=== PATIENT | female | born 1940 | race Caucasian/White ===

== ENCOUNTER 2022-11-12 09:16 | Outpatient (CLI) | payer MEDICARE, BC, SELFPAY ==
--- NOTE | 2022-11-12 10:00 | CRLHL7_ITS ---
For Patients: As a result of the Century Cures Act, medical imaging exams and procedure reports are released immediately into your electronic medical record. You may view this report before your referring provider. If you have questions, please contact your health care provider. INDICATION: Altered bowel habits. Prior appendectomy, hysterectomy, laparotomy, and lumbar fusion. TECHNIQUE: Contrast-enhanced abdominal pelvic CT. 54 cc nonionic [id number] administered. COMPARISON: July 29, 2018. FINDINGS: Minor fibrosis or atelectasis posteromedial right lung base. No pleural or pericardial effusions. No nodules at either lung base. 9 mm cyst sub capsular right hepatic lobe previously 7 mm. Tiny cyst lateral left hepatic lobe of no clinical significance. No splenomegaly. Normal-appearing pancreas and gallbladder. Both adrenal glands are within normal limits. No hydronephrosis of either kidney. No cystic or solid renal masses. Scattered vascular calcification within a mildly tortuous but normal caliber abdominal aorta and iliac arteries. The urinary bladder is unremarkable. The appendix and uterus are absent. Nonvisualization of the ovaries. There is no evidence for small or large bowel obstruction ileus and no ascites or lymphadenopathy. No acute inflammatory process. Lumbar scoliotic curvature convex towards the right. Multilevel degenerative disc disease with 3 level posterior cervical spine fusion L3-L5. No acute fractures. IMPRESSION: 1. No acute abdominopelvic process identified. Specifically there is no evidence for acute inflammatory processes. 2. Absent appendix and uterus. Postsurgical change of the lumbar spine new compared to the prior study. Please note that all CT scans at this facility use dose modulation, iterative reconstruction, and/or weight-based dosing when appropriate to reduce radiation dose to as low as reasonably achievable. Dictated by Newton Rosa MD @ 11/12/2022 4:25:45 PM (Electronically Signed)
[2022-11-12 10:24] LABS: Creatinine* 0.5 mg/dL (0.5-1.5); Estimated Glomerular Filt Rate 94 ml/min
== END 2022-11-12 09:17 | disposition home or self-care (01) ==
LOC: CT 09:18
PROVIDERS: PCP Internal Medicine; Visit Provider Internal Medicine
DX: R19.4 Change in bowel habit (principal)
CPT/HCPCS: 36415; 74177; 82565; Q9967

== ENCOUNTER 2022-11-20 11:06 | Outpatient (CLI) | payer MEDICARE, BC, SELFPAY | END 2022-11-20 11:07 | disposition home or self-care (01) | LOC: NFLDREF 11:06 | PROVIDERS: PCP Internal Medicine; Visit Provider Obstetrics & Gynecology | DX: R33.9 Retention of urine, unspecified (principal) | CPT/HCPCS: 87086 ==

== ENCOUNTER 2023-07-20 13:57 | Outpatient (CLI) | payer MEDICARE, BC, SELFPAY | END 2023-07-20 13:58 | disposition home or self-care (01) | LOC: INJ CL 13:59 | PROVIDERS: PCP Internal Medicine; Visit Provider Family Medicine | DX: M17.11 Unilateral primary osteoarthritis, right knee (principal); M25.561 Pain in right knee | CPT/HCPCS: 64454 ==

== ENCOUNTER 2023-08-10 13:11 | Outpatient (CLI) | payer MEDICARE, BC, SELFPAY | END 2023-08-10 13:12 | disposition home or self-care (01) | LOC: INJ CL 13:12 | PROVIDERS: PCP Internal Medicine; Visit Provider Family Medicine | DX: M17.11 Unilateral primary osteoarthritis, right knee (principal); G89.29 Other chronic pain; M25.561 Pain in right knee | CPT/HCPCS: 64624; J2250; J3010 ==

== ENCOUNTER 2023-09-14 14:49 | Outpatient (CLI) | payer MEDICARE, BC, SELFPAY | END 2023-09-14 14:50 | disposition home or self-care (01) | LOC: INJ CL 14:49 | PROVIDERS: PCP Internal Medicine; Visit Provider Family Medicine | DX: M17.12 Unilateral primary osteoarthritis, left knee (principal); M25.562 Pain in left knee | CPT/HCPCS: 64454 ==

== ENCOUNTER 2023-10-19 12:26 | Outpatient (CLI) | payer MEDICARE, BC, SELFPAY | END 2023-10-19 12:27 | disposition home or self-care (01) | PROVIDERS: PCP Internal Medicine; Visit Provider Family Medicine | DX: M17.12 Unilateral primary osteoarthritis, left knee (principal); M25.562 Pain in left knee; G89.29 Other chronic pain | CPT/HCPCS: 64624; J2250; J3010 ==

== ENCOUNTER 2023-10-25 11:38 | Emergency (ER) | payer MEDICARE, BC, SELFPAY ==
[2023-10-25] VITALS (15 sets, daily range): BP systolic 145–173; BP diastolic 91–119; PULSE 72–103; RESP 16; TEMP 36.9; O2SAT 97–99; BMI 19.6
--- NOTE | 2023-10-25 12:05 | ED.GENADULT ---
HPI - General Adult General Chief complaint: Chest Pain Stated complaint: Lightheaded, dizzy, chest pain Time Seen by Provider: 10/25/23 11:48 History of Present Illness HPI narrative: Dizzy, SOB, chest pain with activity x 8- 10 days. Symptoms worsening. Hx of chest muscle pain, but states this feels different . States this feels more like a pressure. 83-year-old woman presenting to emergency department concern of chest pain. Apparently she has had decades of what is thought to have been chest wall/musculoskeletal pain. What brought her here today though was what appears to be lightheadedness markedly worse this morning after had been out feeding the birds. Feeling like she was going to fall over. Accompanied also with some chest pressure. Further questioning it is not clear that this is exactly dizziness but perhaps indeed more lightheadedness. She has had increased exertional dyspnea over the last week. She can feel like her heart is pounding but not necessarily racing. Has felt like this before perhaps 4 years ago with unremarkable evaluation. She believes she may have had a stress test at some point and looks to be scheduled for that in a week or so again. Saw primary care provider last week. 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 At rest she feels fairly well. Not short of breath. No chest pain. Daughter accompanies her here notes her not to be complainer nor that she really slowed down so this is rather unusual. At some point someone has suggested that maybe there is a blood clot. Has had some pain in her right upper calf and up into her thigh a little bit which she has associated with osteoarthritic knee pain. Interview is a little challenging as Ms. Hughes says very little in response to questioning. Related Data Home Medications Medication Instructions Recorded Confirmed acetaminophen 325 mg capsule 325 mg PO ONCE PRN 09/29/22 10/26/23 calcium carbonate 500 mg calcium 500 mg PO DAILY 09/29/22 10/26/23 (1,250 mg) tablet cyanocobalamin (vitamin B-12) 500 500 mcg PO DAILY 09/29/22 10/26/23 mcg tablet fish oil-dha-epa PO DAILY 09/29/22 10/26/23 garlic PO DAILY PRN 09/29/22 10/26/23 glucosamine sulfate 500 mg capsule 500 mg PO QDAY 09/29/22 10/26/23 rutin 50 mg tablet 100 mg PO DAILY 09/29/22 10/26/23 vitamin B complex 1 tab PO QDAY 09/29/22 10/26/23 zyflamed PO DAILY 10/21/23 10/26/23 Previous Rx's Medication Instructions Recorded estradiol 0.01% (0.1 mg/gram) 0.5 appful vaginal 2XW #42.5 grams 05/04/23 vaginal cream Allergies Allergy/AdvReac Type Severity Reaction Status Date / Time codeine Allergy Unknown Gastrointestinal Verified 10/26/23 13:00 Upset Review of Systems Status of ROS: Reports: 6 or more systems reviewed and unremarkable except as noted in History and below [facility] Medical History History of bladder cancer ?Z85.51 - Personal history of malignant neoplasm of bladder (ICD-10) Surgical History H/O foot surgery (10/23/08) ?Z98.890 - Other specified postprocedural states (ICD-10) H/O cystoscopy (12/10/14) ?Z98.890 - Other specified postprocedural states (ICD-10) History of cataract surgery ?Z98.49 - Cataract extraction status, unspecified eye (ICD-10) History of total hysterectomy with removal of both tubes and ovaries (1995) ?Z90.710 - Acquired absence of both cervix and uterus (ICD-10) ?Z90.722 - Acquired absence of ovaries, bilateral (ICD-10) ?Z90.79 - Acquired absence of other genital organ(s) (ICD-10) History of laparotomy (1999) ?Z98.890 - Other specified postprocedural states (ICD-10) History of appendectomy (1997) ?Z90.49 - Acquired absence of other specified parts of digestive tract (ICD-10) Family History Brother Colon cancer Social History What is your current living situation?: I presently have a place to live Problems where you live: no known problems In the past 12 months, utilities in danger of being shut off: no In past 12 months, lack of transportation kept you from medical appts, meetings, work, or getting things needed for daily living: no In the past 12 mos, have been you worried that your food would run out before you had money to buy more?: never true In the past 12 mos, the food you bought just didn't last and you didn't have money to buy more?: never true Smoking Status: Never smoker Do you use any of these nicotine containing products: None Second hand tobacco smoke exposure: No How often do you have a drink containing alcohol: monthly or less How many standard drinks containing alcohol do you have on a typical day: 1 or 2 How often do you have six or more drinks on one occasion: Never AUDIT-C Alcohol total score: 1 Non-prescribed substance use: denies use How often does anyone, including family, friends and others, physically hurt you: never How often does anyone, including family, friends and others, insult or talk down to you: never How often does anyone, including family, friends and others, threaten you with harm: never How often does anyone, including family, friends and others, scream or curse at you: never Little interest or pleasure in doing things: not at all Feeling down, depressed, or hopeless: several days service: No Exam Narrative: Exam Narrative: Very pleasant. Fully alert. Cranial nerves 2-12 intact. Moving all extremities without difficulty with good strength. She has fluid in her movements. No nystagmus. She volunteers rotational movement and extending and flexing of her neck without significant reproduction her discomfort. Rapidly rotating her head producing maybe a little wooziness; clearly not overly dizzy otherwise. Lower extremities are well perfused. She is without edema. Not particularly reproducible discomfort; negative Homans. Lungs are clear. Mild kyphotic change of the upper thoracic spine. Heart in regular rate and rhythm I think sometimes I am hearing a very trace systolic murmur across the anterior chest but very trace if present. Abdomen is flat soft and nontender. Const: Vital Signs, click to edit/add: Vital Signs - 24 hr 10/25/23 11:46 Temperature 98.4 F Pulse Rate [Pulse Oximeter] 72 Respiratory Rate 16 Blood Pressure [Ri ght Upper Arm] 173/103 H Pulse Oximetry 99 Oxygen Delivery Me thod Room Air Documenting provider has reviewed patient's vital signs: yes Course Vital Signs Vital signs: Initial Vital Signs Temperature 98.4 F 10/25/23 11:46 Temperature Source Temporal Artery Scan 10/25/23 11:46 Pulse Rate 72 10/25/23 11:46 Pulse Rhythm Regular 10/25/23 11:46 Pulse Strength 3+ Normal 10/25/23 11:46 Respiratory Rate 16 10/25/23 11:46 Blood Pressure 173/103 H 10/25/23 11:46 Blood Pressure Mean 126 H 10/25/23 11:46 Blood Pressure Position Semi-Fowlers 10/25/23 11:46 Pulse Oximetry 99 10/25/23 11:46 Oxygen Delivery Method Room Air 10/25/23 11:46 Vital Signs Temperature 98.4 F 10/25/23 11:46 Pulse Rate 72 10/25/23 11:46 Respiratory Rate 16 10/25/23 11:46 Blood Pressure 173/103 H 10/25/23 11:46 Pulse Oximetry 99 10/25/23 11:46 Oxygen Delivery Method Room Air 10/25/23 11:46 Temperature 98.4 F 10/25/23 11:46 Pulse Rate 85 10/25/23 14:33 Respiratory Rate 16 10/25/23 11:46 Blood Pressure 150/102 H 10/25/23 14:33 Pulse Oximetry 99 10/25/23 14:33 Oxygen Delivery Method Room Air 10/25/23 11:46 Medications Administered Medications: Discontinued Medications Generic Name Dose Route Start Last Admin Trade Name Freq PRN Reason Stop Dose Admin Sodium Chloride 1,000 mls @ 1,000 mls/hr 10/25/23 14:11 10/25/23 14:35 0.9 % Sodium Chloride 1000 Ml IV 10/25/23 15:10 0 mls/hr .Q1H ONE Infusion Medical Decision Making MDM Narrative Medical decision making narrative: Exertional dyspnea certainly it could be related to heart failure exacerbation. Lungs do sound to be clear. I do not appreciate any JVD here today. No extremity edema. Pulmonary embolus certainly does remain in differential. Does not appear to have infectious etiology i.e. pneumonia. Pneumothorax could be related. Pericarditis. Will check orthostatics. Labs for potential ischemic event. Monitor on monitor tech for dysrhythmia. Chest x-ray by my read looks unremarkable without pneumothorax or infiltrate or edema. Monitored on monitor tech without event during time in the emergency department. Labs are reassuring. D-dimer was only slightly elevated. Did discuss these findings with Ms. Hughes. She discusses again her concerns of fatigue; what I interpret as exertional fatigue. We decided to proceed with CT of chest looking for other etiologies, possibly even pulmonary embolus. I did review these images and can appreciate some infiltrate or edematous changes in the periphery. Radiology over-read as below FINDINGS: Pulmonary Arteries: No CT evidence of pulmonary thromboembolic disease. No pulmonary hypertension or right ventricular strain. Heart and Mediastinum: The visualized portions of the thyroid are normal. No axillary or supraclavicular lymphadenopathy. No mediastinal, hilar or retrocrural lymphadenopathy. Normal heart size. Ectasia of the ascending aorta. Atherosclerotic calcifications. Lungs and Airways: Clustered peripheral middle lobe tree-in-bud nodular airspace opacities. Calcified granuloma. No mass or consolidation. No endoluminal lesion. Pleura: The pleural spaces are normal. Abdomen: Subcentimeter hypodensity in the right hepatic lobe is too small to characterize however statistically represents a cyst. Bones and soft tissues: The skeletal structures and soft tissues of the chest wall are unremarkable. IMPRESSION: 1. No CT evidence of pulmonary thromboembolic disease. 2. Middle lobe peripheral tree-in-bud nodular airspace opacities likely reflecting cellular bronchiolitis of infectious/aspiratory etiology. Recommend unenhanced chest CT in 3 months to document resolution and assess underlying malignant potential. I review these results also with Ms. Hughes. I do call to primary care provider to inform of this visit and get a little better insight into this patient in for some advice and care.. Was contemplating possibly some antibiotics but I would agree with primary that likely this is viral process we are seeing here in her lungs. Discussing options for treatment with Ms. Hughes and symptoms again it final becomes more clear that there was a specific movement that created some dizziness; actual dizziness that prompted the concern today. As she gestures very quickly lifting her head up and her arms up and then down the motion she used to put her coat away after she had come in from walking and feeding the birds. This here reproduces a sense of dizziness. Appears to be a reproducible paroxysmal positional vertigo. We discussed treatment options for this. A generalized fatigue might be compounded by a viral infection as evidenced in the lungs but the motion of lifting her head is the reason for concern today. Returning to options for care. She does not want meclizine as it is potentially sedating. Valium certainly would be. Furthermore this movement is such a specific one. I think physical therapy would be indicated here. She would also appreciate brief course of prednisone potentially for its stimulating effects but also as anti-inflammatory for bronchiolitis type findings in her lungs, and potentially beneficial to any inflammatory changes that might be present in the inner ear. See patient discharge plan Lab Data Lab results reviewed: Yes I reviewed the patient's lab results Labs: Lab Results 10/25/23 10/25/23 10/25/23 Range/Units 12:20 12:28 12:41 WBC 5.00 (4.50-11.00) K/uL RBC 5.19 (4.00-5.20) m/uL Hgb 13.0 (12.0-16.0) gm/dL Hct 41.2 (33.0-51.0) % MCV 79 L (80-100) fL MCH 25 L (26-34) pg MCHC 32 (32-36) gm/dL RDW Coeff of Mehran 14.2 (11.5-15.5) % Plt Count 207 (140-440) K/uL Neut % (Auto) 69.0 (42.0-72.0) % Lymph % (Auto) 24.8 (20-44) % [place] % (Auto) 5.2 (0.0-11.0) % Eos % (Auto) 0.6 (0.0-7.0) % Baso % (Auto) 0.2 (0.0-3.0) % Neut # (Auto) 3.45 (1.7-7.0) K/uL Lymph # (Auto) 1.24 (0.90-2.90) K/uL [place] # (Auto) 0.30 (0.00-0.90) K/UL Eos # (Auto) 0.03 (0.00-0.50) K/uL Baso # (Auto) 0.01 (0.00-0.30) K/uL Abs Immat Gran (auto) 0.01 (0.00-0.30) K/uL Imm/Tot Granulo (auto) 0.2 % D-Dimer Quant (PE/DVT) 0.71 H (0.00-0.50) ug/ml Sodium 134 L (135-149) mmol/L Potassium 3.7 (3.6-5.1) mmol/L Chloride 99 (96-114) mmol/L Carbon Dioxide 25 (20-32) mmol/L Anion Gap 10 (7-15) mEq/L BUN 9 (7-30) mg/dL Creatinine 0.4 L (0.5-1.5) mg/dL Estimated Creat Clear 33.23 Estimated GFR 99 ml/min Glucose 112 (60-115) mg/dL Calcium 9.5 (8.4-10.6) mg/dL Magnesium 2.2 (1.5-2.6) mg/dL Troponin I < 0.01 L (0.01-0.04) ng/mL C-Reactive Protein 1.3 H (0.5-1.0) mg/dL NT-Pro-B Natriuret Pep 347 pg/mL Urine Color Yellow (Yellow) Urine Appearance Clear (Clear) Urine pH 7.0 (5.0-8.5) Ur Specific [place] 1.010 (1.000-1.030) Urine Protein Negative (Negative) Urine Glucose (UA) Negative (Negative) Urine Ketones Negative (Negative) Urine Blood Negative (Negative) Urine Nitrite Negative (Negative) Urine Bilirubin Negative (Negative) Urine Urobilinogen 0.2 (0.2-1.0) Ur Leukocyte Esterase Negative (Negative) Urine RBC 0-2 (0-2) Urine WBC 0-2 (0-5) Ur Squamous Epith Cells Few (None-Few) Urine Bacteria Few A (None) SARS-CoV-2 (PCR) (Negative) Influenza Type A (PCR) (Negative) Influenza Type B (PCR) (Negative) RSV (PCR) (Negative) POC Troponin I 0.00 L (0.01-0.04) ng/ml 10/25/23 Range/Units 12:50 WBC (4.50-11.00) K/uL RBC (4.00-5.20) m/uL Hgb (12.0-16.0) gm/dL Hct (33.0-51.0) % MCV (80-100) fL MCH (26-34) pg MCHC (32-36) gm/dL RDW Coeff of Mehran (11.5-15.5) % Plt Count (140-440) K/uL Neut % (Auto) (42.0-72.0) % Lymph % (Auto) (20-44) % [place] % (Auto) (0.0-11.0) % Eos % (Auto) (0.0-7.0) % Baso % (Auto) (0.0-3.0) % Neut # (Auto) (1.7-7.0) K/uL Lymph # (Auto) (0.90-2.90) K/uL [place] # (Auto) (0.00-0.90) K/UL Eos # (Auto) (0.00-0.50) K/uL Baso # (Auto) (0.00-0.30) K/uL Abs Immat Gran (auto) (0.00-0.30) K/uL Imm/Tot Granulo (auto) % D-Dimer Quant (PE/DVT) (0.00-0.50) ug/ml Sodium (135-149) mmol/L Potassium (3.6-5.1) mmol/L Chloride (96-114) mmol/L Carbon Dioxide (20-32) mmol/L Anion Gap (7-15) mEq/L BUN (7-30) mg/dL Creatinine (0.5-1.5) mg/dL Estimated Creat Clear Estimated GFR ml/min Glucose (60-115) mg/dL Calcium (8.4-10.6) mg/dL Magnesium (1.5-2.6) mg/dL Troponin I (0.01-0.04) ng/mL C-Reactive Protein (0.5-1.0) mg/dL NT-Pro-B Natriuret Pep pg/mL Urine Color (Yellow) Urine Appearance (Clear) Urine pH (5.0-8.5) Ur Specific [place] (1.000-1.030) Urine Protein (Negative) Urine Glucose (UA) (Negative) Urine Ketones (Negative) Urine Blood (Negative) Urine Nitrite (Negative) Urine Bilirubin (Negative) Urine Urobilinogen (0.2-1.0) Ur Leukocyte Esterase (Negative) Urine RBC (0-2) Urine WBC (0-5) Ur Squamous Epith Cells (None-Few) Urine Bacteria (None) SARS-CoV-2 (PCR) Negative SARS-CoV-2 (Negative) Influenza Type A (PCR) Negative PCR FLU A (Negative) Influenza Type B (PCR) Negative PCR FLU B (Negative) RSV (PCR) Negative PCR RSV (Negative) POC Troponin I (0.01-0.04) ng/ml ECG Data Attestation: I personally reviewed and interpreted this ECG as follows: (EKG does show normal sinus rhythm. Does have somewhat elevated QRS complex. Rate of 73.) Discharge Plan Discharge Clinical Impression: Benign paroxysmal positional vertigo, Fatigue, Bronchiolitis Patient Disposition: Home w/ Parent or Adult Condition: Stable Additional Instructions: Stay well-hydrated. You might consider an appointment with physical therapy to help you with this dizzy sensation you are having intermittently. Try to avoid rapid head movements in particular the 1 that seems to reproduce your symptoms. Your primary care provider can help you set this up. Return/be seen for new and focal weakness, severe persistent headache, repeated vomiting, increasing and persistent shortness of breath. Brief course of prednisone from [facility]. May want to take the 2nd dose of the day in the earlier afternoon. Can discontinue if 2 stimulating. Prescriptions: No Action cyanocobalamin (vitamin B-12) 500 mcg tablet 500 mcg PO DAILY glucosamine sulfate 500 mg capsule 500 mg PO QDAY calcium carbonate 500 mg calcium (1,250 mg) tablet 500 mg PO DAILY vitamin B complex Tablet 1 tab PO QDAY rutin 50 mg tablet 100 mg PO DAILY acetaminophen 325 mg capsule 325 mg PO ONCE PRN garlic PO DAILY PRN fish oil-dha-epa PO DAILY zyflamed PO DAILY estradiol 0.01 % (0.1 mg/gram) cream 0.5 appful vaginal 2XW Qty: 42.5 2RF Follow Up/Referrals: Elizabeth Hameed MD [Primary Care Provider] - Stand Alone Forms: [facility] Info Instructions
--- NOTE | 2023-10-25 12:20 | CRLHL7_ITS ---
For Patients: As a result of the Century Cures Act, medical imaging exams and procedure reports are released immediately into your electronic medical record. You may view this report before your referring provider. If you have questions, please contact your health care provider. INDICATION: Lightheadedness. TECHNIQUE: Chest 1 views. COMPARISON: None. FINDINGS: Cardiovasculature and mediastinum: Heart size and vasculature are normal in caliber and appearance. Lungs and pleural spaces: Lungs are clear. Visible bilateral nipple shadows. No sign of infiltrate or mass. No sign of pleural effusion. No pneumothorax. Bones and soft tissues: No significant findings. IMPRESSION: No acute or significant findings. Dictated by Vivek De La Torre MD @ 10/25/2023 1:11:56 PM (Electronically Signed)
--- OUTSIDE RECORDS SUMMARY | 2023-10-25 12:24 | XMS_ITS | Clinical Summary ---
Author Name Unknown Organization [facility] Address [place], [place] [address] Care Team Providers Care Aboriginal Ceremonial Celebrant Name Role Phone Sohan Geiger MD Unavailable [phone] Conchis Thompson MD Primary Care Provider + Allergies Active Allergy Reactions Criticality Noted Date Comments Codeine Intolerance-Can't Take Makes her nauseated Medications Medication Sig Dispensed Refills Start Date End Date Status Kellogg [id number]-[id number] ol 500 mg-500 mcg -1 mg-12.5 mg cap Daily 0 Active Garlic 100 mg tab 0 Active Rutin 500 mg tab Daily 0 Active calcium carbonate (OS-LULU 500) 500 mg calcium (1,250 mg) tablet once daily. 0 Active acetaminophen (TYLENOL EXTRA STRGTH) 500 mg tablet Take 1,000 mg by mouth every 6 hours if needed. 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 Per Dr Nicole: ?? The stable polyp is the patient's appendiceal stump. It will stay there forever and will not change is size. See colonoscopy report 2010 at [facility]. Recommend CT colonograpy every 5 years. Routine general medical exam ination at a health care facility 04/08/2010 Overview: dexa normal 10/2007 FH: colon cancer 10/17/2008 Overview: Brother of colon cancer, she is due for colonoscopy in 2008 Migraine, unspecified, witho ut mention of intractable migraine without mention of status migrainosus 11/01/2007 Resolved Problems Problem Noted Date Diagnosed Date Resolved Date Bite from cat 04/16/2010 05/26/2011 Toe pain, right 04/08/2010 05/26/2011 Symptomatic menopausal or fe male climacteric states 11/01/2007 05/26/2011 Encounters Date Type Department Care Team Description 10/19/2023 2:00 PM CHIEF RISK OFFICER Procedure Only [address] [address] Eamon Rivas MD Procedure (Left knee Coolief RFA) 10/19/2023 Travel 09/15/2023 Telephone [facility] [address] [place] [address] Eamon Rivas MD 09/14/2023 3:20 PM CHIEF RISK OFFICER Office Visit [address] [address] Eamon Rivas MD Procedure (Left knee genicular nerve block ) 08/10/2023 2:00 PM CDT Procedure Only [address] [address] Eamon Rivas MD Procedure (Right Knee Coolief RFA) from Last 3 Months Immunizations Name Administration Dates Next Due Pneumococcal Poly,23-Valent (Pneumovax) 10/17/2008 Pneumococcal conj 13-Valent (Prevnar 13) 01/27/2016 Rabies Vaccine 05/02/2010, 0,04/21/2010,2009 Td (Age >=7 Years) 12/16/2001 Tdap 05/26/2011 Zoster (Zostavax-ZVL, live) 11/01/2007 Family History Medical History Relation Name Comments Cancer-colon Brother Relation Name Status Comments Brother Social History Tobacco Use Types Packs/Day Years Used Date Smoking Tobacco: Never Smokeless Tobacco: Never Tobacco Cessation:Counseling Given: Yes Alcohol Use Standard Drinks/Week Comments Yes 0 (1 standard drink = 0.6 oz pure alcohol) 1 glass of wine a month roughly Social Connections Answer Date Recorded Frequency of Communication with Friends and Fami ly Not on file 10/18/2021 Financial Resource Strain Answer Date R ecorded Difficulty of Paying Living Expenses Not on file 10/18/2021 Difficulty of Paying Living Expenses Not on file 10/18/2021 Sex and Gender Information Value Date Recorded Sex Assigned at Not on file Gender Identity Not on file Sexual Orientation Not on file Obstetrics History Para Term AB IAB SAB Ectopic Multiple Livin g Live Births 4 4 4 0 0 0 0 0 0 4 4 Date Outcome GA Total Labor Labor/2nd/3rd Weight Sex Delivery Anes PTL Misa A1 A5 Name Cl in Term Vag Dominique ng Term Vag Dominique ng Term Vag Dominique ng Term Vag Dominique ng Last Filed Vital Signs Vital Sign Reading Time Taken Comments Blood Pressure 150/89 05/19/2023 2:02 PM CDT Pulse 71 05/19/2023 2:02 PM CDT Temperature 36.7 ??C (98.1 ??F) 05/19/2023 2:02 PM CD T Respiratory Rate 16 11/17/2021 8:29 PM CHIEF RISK OFFICER Oxygen Saturation 100% 05/19/2023 2:02 PM CDT Inhaled Oxygen Concentration - - Weight 51.2 kg (112 lb 12.8 oz) 05/19/2023 2:02 PM CDT shoes on Height 162.6 cm (5' 4) 05/03/2017 2:40 PM CDT Body Mass Index 19.36 05/03/2017 2:40 PM CDT Plan of Treatment Upcoming Encounters Date Type Department Care Team (Late st Contact Info) Description 11/02/2023 1:00 PM CHIEF RISK OFFICER Ancillary Procedure [facility] [address] [place] [address] Health Maintenance Due Date Last Done Comments Zoster (shingles) series for age 50+ (2 of 3) 12/27/2007 11/01/2007 Depression screening for age 12+ 02/26/2018 02/26/2017, 01/27/2016, 01/27/2016 Medicare Wellness for age 65+ 02/26/2018, 01/27/2016, 07/12/2012, Additional history exists BMI (ht and wt on same day) for age 18+ 05/03/2018 05/03/2017, 04/15/2017, 03/04/2017, Additional history exists Tetanus booster 05/26/2021 05/26/2011, 12/16/2001 COVID-19 vaccine series ( season) 2023 07/17/2021, 12/14/2020, 11/23/2020 Influenza for age 65+ 06/18/2023 Tdap Completed 05/26/2011 Pneumococcal series for age 65+ Completed 6, 10/17/2008 DEXA/DXA scan for age 65+ Completed 01/28/2016, Procedures Procedure Name Priority Date/Time Associated Diagnosis Comments [place] INJECTION AA&/STRD GENICULAR NRV BRANCHES W/IMG Routine 09/14/2023 12:00 AM CHIEF RISK OFFICER Primary osteoarthritis of left knee Chronic pain of left knee AMB CONSULT FOR INJECTION Routine 08/10/2023 12:00 AM CDT Primary osteoarthritis of right knee Chronic pain of right knee from Last 3 Months Results * [place] INJECTION AA&/STRD GENICULAR NRV BRANCHES W/IMG (09/14/2023 12:00 AM CHIEF RISK OFFICER) Eamon Rivas MD PB - NERVOUS SYSTE M SERVICES * AMB CONSULT FOR INJECTION (08/10/2023 12:00 AM CDT) Eamon Rivas MD AMB REFERRAL/CONSU LT ORD from Last 3 Months Care Teams Aboriginal Ceremonial Celebrant Relationship Specialty Start Date End Date Conchis Thompson MD [address] [place] [address] PCP - General Family Practice 06/15/18 Sohan Geiger MD Surgery - Urology 01/27/16
[2023-10-25 12:38] LABS: Appearance Urine Clear (Clear); Bilirubin Urine Negative (Negative); Blood Urine Negative (Negative); Color Urine Yellow (Yellow); Glucose Urine Negative (Negative); Ketones Urine Negative (Negative); Leukocyte Esterase Urine Negative (Negative); Nitrite Urine Negative (Negative); Protein Urine Negative (Negative); Urobilinogen Urine 0.2 (0.2-1.0)
[2023-10-25 12:59] LABS: Basophils Absolute Auto 0.01 K/uL (0.00-0.30); Basophils Percent Auto 0.2 % (0.0-3.0); Eosinophils Absolute Auto 0.03 K/uL (0.00-0.50); Eosinophils Percent Auto 0.6 % (0.0-7.0); Hematocrit 41.2 % (33.0-51.0); Immature Granulocytes Abs Auto 0.01 K/uL (0.00-0.30); Immature Granulocytes Pct Auto 0.2 %; Lymphocytes Absolute Auto 1.24 K/uL (0.90-2.90); Lymphocytes Percent Auto 24.8 % (20-44); Mean Corpuscular HGB Conc 32 gm/dL (32-36); Mean Corpuscular Hemoglobin 25 pg (26-34); Mean Corpuscular Volume 79 fL (80-100); Monocytes Percent Auto 5.2 % (0.0-11.0); Neutrophils Absolute Auto 3.45 K/uL (1.7-7.0); Platelet Count* 207 K/uL (140-440); RDW Coefficient of Variation % 14.2 % (11.5-15.5); Red Blood Count 5.19 m/uL (4.00-5.20)
[2023-10-25 13:03] LABS: Slide Review Reflex No
[2023-10-25 13:13] LABS: Chloride* 99 mmol/L (96-114); Potassium* 3.7 mmol/L (3.6-5.1); Sodium* 134 mmol/L (135-149)
[2023-10-25 13:16] LABS: Anion Gap 10 mEq/L (7-15); Blood Urea Nitrogen* 9 mg/dL (7-30); Carbon Dioxide* 25 mmol/L (20-32); Creatinine* 0.4 mg/dL (0.5-1.5); D Dimer Quantitative* 0.71 ug/ml (0.00-0.50); Est. Creatinine Clearance* 33.23; Estimated Glomerular Filt Rate 99 ml/min
[2023-10-25 13:17] LABS: Calcium* 9.5 mg/dL (8.4-10.6); Glucose* 112 mg/dL (60-115); Magnesium* 2.2 mg/dL (1.5-2.6)
[2023-10-25 13:19] LABS: C Reactive Protein* 1.3 mg/dL (0.5-1.0)
[2023-10-25 13:29] LABS: NT Pro B Type NatriureticPept* 347 pg/mL; Troponin I* < 0.01 ng/mL (0.01-0.04)
[2023-10-25 13:29] LABS: Bacteria Urine Few; RBC Urine 0-2 (0-2); Squamous Epithelial Cell Urine Few (None-Few); WBC Urine 0-2 (0-5)
[2023-10-25 13:37] LABS: PCR FLU A Negative PCR FLU A (Negative); PCR FLU B Negative PCR FLU B (Negative); PCR RSV Negative PCR RSV (Negative); SARS PCR* Negative SARS-CoV-2 (Negative)
[2023-10-25] MEDS: 0.9 % SODIUM CHLORIDE 1000 ml 1,000 ML IV (14:22)
--- NOTE | 2023-10-25 14:30 | CRLHL7_ITS ---
For Patients: As a result of the Century Cures Act, medical imaging exams and procedure reports are released immediately into your electronic medical record. You may view this report before your referring provider. If you have questions, please contact your health care provider. INDICATION: .EXERTIONAL DYSPNEA, LIGHT HEADEDNESS TECHNIQUE: CT chest PE was acquired with 95 cc Isovue 370 IV contrast. COMPARISON: None FINDINGS: Pulmonary Arteries: No CT evidence of pulmonary thromboembolic disease. No pulmonary hypertension or right ventricular strain. Heart and Mediastinum: The visualized portions of the thyroid are normal. No axillary or supraclavicular lymphadenopathy. No mediastinal, hilar or retrocrural lymphadenopathy. Normal heart size. Ectasia of the ascending aorta. Atherosclerotic calcifications. Lungs and Airways: Clustered peripheral middle lobe tree-in-bud nodular airspace opacities. Calcified granuloma. No mass or consolidation. No endoluminal lesion. Pleura: The pleural spaces are normal. Abdomen: Subcentimeter hypodensity in the right hepatic lobe is too small to characterize however statistically represents a cyst. Bones and soft tissues: The skeletal structures and soft tissues of the chest wall are unremarkable. IMPRESSION: 1. No CT evidence of pulmonary thromboembolic disease. 2. Middle lobe peripheral tree-in-bud nodular airspace opacities likely reflecting cellular bronchiolitis of infectious/aspiratory etiology. Recommend unenhanced chest CT in 3 months to document resolution and assess underlying malignant potential. Please note that all CT scans at this facility use dose modulation, iterative reconstruction, and/or weight-based dosing when appropriate to reduce radiation dose to as low as reasonably achievable. Dictated by Michael Torres MD @ 10/25/2023 3:48:38 PM (Electronically Signed)
--- NOTE | 2023-10-25 15:42 | ED.NURSE ---
IV fluids started per provider order. After approximately 200cc of fluid, pt decided to refuse further IV fluids. IV fluids clamped and disconnected. Dr. Kovacs notified.
== END 2023-10-25 17:23 | disposition home or self-care (01) ==
PROVIDERS: Emergency Provider Family Medicine; PCP Internal Medicine
DX: H81.10 Benign paroxysmal vertigo, unspecified ear (principal); R53.83 Other fatigue; J21.9 Acute bronchiolitis, unspecified
CPT/HCPCS: 36415; 71045; 71275; 80048; 81001; 83735; 83880; 84484; 85025; 85379; 86140; 87086; 87631; 93005; 94761; 99284; 99285; J7030; Q9967

== ENCOUNTER 2023-11-02 12:38 | Outpatient (CLI) | payer MEDICARE, BC, SELFPAY ==
[2023-11-02 01:50] VITALS: BP 178/92; PULSE 98; RESP 16
--- OUTSIDE RECORDS SUMMARY | 2023-11-02 12:51 | XMS_ITS | Clinical Summary ---
Author Name Unknown Organization [facility] Address [place], [place] [address] Care Team Providers Care Optometrist Assistant Name Role Phone Sohan Geiger MD Unavailable [phone] Conchis Thompson MD Primary Care Provider + Allergies Active Allergy Reactions Criticality Noted Date Comments Codeine Intolerance-Can't Take Makes her nauseated Medications Medication Sig Dispensed Refills Start Date End Date Status Rillito [id number] ol 500 mg-500 mcg -1 mg-12.5 mg [...] is size. See colonoscopy report 2010 at [facility]. Recommend CT colonograpy every 5 years. [...] Department Care Team Description 10/19/2023 2:00 PM ENGINEER SYSTEMS Procedure Only [address] [address] Eamon Rivas MD Procedure (Left knee Coolief RFA) 10/19/2023 Travel 09/15/2023 Telephone [facility] [address] [place] [address] Eamon Rivas MD 09/14/2023 3:20 PM ENGINEER SYSTEMS Office Visit [address] [address] Eamon Rivas MD Procedure (Left knee genicular nerve block ) 08/10/2023 2:00 PM CDT Procedure Only [address] [address] Eamon Rivas MD Procedure (Right Knee Coolief [...] T Respiratory Rate 16 11/17/2021 8:29 PM ENGINEER SYSTEMS Oxygen Saturation 100% 05/19/2023 2:02 PM CDT Inhaled Oxygen Concentration - - Weight 51.2 kg (112 lb 12.8 oz) 05/19/2023 2:02 PM CDT shoes on Height 162.6 cm (5' 4) 05/03/2017 2:40 PM CDT Body Mass Index 19.36 05/03/2017 2:40 PM CDT Plan of Treatment Upcoming Encounters Date Type Department Care Team (Late st Contact Info) Description 11/02/2023 1:00 PM ENGINEER SYSTEMS Ancillary Procedure [facility] [address] [place] [address] Health Maintenance Due Date Last Done Comments [...] Procedure Name Priority Date/Time Associated Diagnosis Comments MD INJECTION AA&/STRD GENICULAR NRV BRANCHES W/IMG Routine 09/14/2023 12:00 AM ENGINEER SYSTEMS Primary osteoarthritis of left knee Chronic pain of left knee AMB CONSULT FOR INJECTION Routine 08/10/2023 12:00 AM CDT Primary osteoarthritis of right knee Chronic pain of right knee from Last 3 Months Results * MD INJECTION AA&/STRD GENICULAR NRV BRANCHES W/IMG (09/14/2023 12:00 AM ENGINEER SYSTEMS) Eamon Rivas MD PB - NERVOUS SYSTE M SERVICES * AMB CONSULT FOR INJECTION (08/10/2023 12:00 AM CDT) Eamon Rivas MD AMB REFERRAL/CONSU LT ORD from Last 3 Months Care Teams Optometrist Assistant Relationship Specialty Start Date End Date Conchis Thompson MD [address] [place] [address] PCP - General Family Practice 06/15/18 Sohan Geiger MD Surgery - Urology 01/27/16
--- NOTE | 2023-11-02 13:48 | W.PM.STED ---
Stress Test Note Date Date Seen: 11/02/23 Date of test: 11/02/23 Providers Primary care provider: Elizabeth Hameed Stress test physician: Savi Kathleen Stress Test Note Stress test ordered: Stress Echo Indication for test: Chest pain, upcoming knee replacement surgery Stress test medicine: None Results discussion: Resting EKG: Normal sinus rhythm, 77 beats per minute. Flipped T-waves V1 and V2, no acute ST changes. Similar to prior EKGs from earlier this month. Resting blood pressure: 162/94 Stress test: Patient was exercised following standard Ivan protocol on the treadmill. Patient exercised to 6 minutes 34 seconds. Test was terminated due to her request to stop exercising on the treadmill. She had no chest symptoms, no chest pain. She achieved 7.9 Mets at this level of exercise. She had a maximum heart rate of 151 beats per minute which was 129% of a target heart rate of 117, maximal calculated heart rate was 138. Patient had a hypertensive response to exercise, rate pressure product 29,536. 15 seconds into recovery, blood pressure was 208/104 there was no discernible ischemic change on the EKGs. Await echo images to couple this for a full formal report. Impression: Subjectively negative, objectively negative EKG portion of this stress test. Follow up suggested: We will await the echo images to couple this for a full formal diagnostic. Patient was discharged to home in stable condition, had no symptoms during the stress test.
== END 2023-11-02 12:39 | disposition home or self-care (01) ==
LOC: STRESS 12:39
PROVIDERS: PCP Internal Medicine; Visit Provider Family Medicine
DX: R07.89 Other chest pain (principal)
CPT/HCPCS: 93016; 93325; 93351

== ENCOUNTER 2023-11-22 08:52 | Day surgery (SDC) | payer MEDICARE, BC, SELFPAY ==
[2023-11-22] VITALS (23 sets, daily range): BP systolic 103–170; BP diastolic 72–103; PULSE 64–81; RESP 13–18; TEMP 36.1–37.2; O2SAT 94–100; BMI 20.2
[2023-11-22] MEDS: OXYCODONE (CR) 10 MG TAB.ER.12H PO (08:30)
[2023-11-22] MEDS: MIDAZOLAM HCL 1 MG/ML inj IVP (08:30)
[2023-11-22] MEDS: LACTATED RINGERS 1000 ML 1,000 ML 100 ML IV (08:30)
[2023-11-22] MEDS: fentaNYL 100 MCG/2 ML inj IVP (08:30)
[2023-11-22] MEDS: ACETAMINOPHEN 500 MG TABLET 1000 MG PO ×3 (08:30→20:41)
--- OUTSIDE RECORDS SUMMARY | 2023-11-22 08:54 | XMS_ITS | Clinical Summary ---
Author Name Unknown Organization [employer] [facility] [employer] Address [place], [place] [address] Care Team Providers Care Marketing Automation Specialist Name Role Phone Sohan Geiger MD Unavailable [phone] Conchis Thompson MD Primary Care Provider + Allergies Active Allergy Reactions Criticality Noted Date Comments Codeine Intolerance-Can't Take Makes her nauseated Medications Medication Sig Dispensed Refills Start Date End Date Status [place] [id number] ol 500 mg-500 mcg -1 mg-12.5 mg [...] not change is size. See colonoscopy report 2009 at [facility]. Recommend CT colonograpy every 5 [...] Encounters Date Type Department Care Team Description 11/02/2023 1:00 PM [employer] Ancillary Procedure [facility] [address] [place] [address] 11/02/2023 Travel 10/19/2023 2:00 PM [employer] Procedure Only [facility] [address] [place] [address] Eamon Rivas MD Procedure (Left knee [place] RFA) 10/19/2023 Travel 09/15/2023 Telephone [facility] [address] [place] [address] Eamon Rivas MD 09/14/2023 3:20 PM [employer] Office Visit [facility] [address] [place] [address] Eamon Rivas MD Procedure (Left knee genicular nerve block ) from Last 3 Months Immunizations Name Administration [...] T Respiratory Rate 16 11/17/2021 8:29 PM [employer] Oxygen Saturation 100% 05/19/2023 2:02 PM CDT Inhaled Oxygen Concentration - - Weight 51.2 kg (112 lb 12.8 oz) 05/19/2023 2:02 PM CDT shoes on Height 162.6 cm (5' 4) 05/03/2017 2:40 PM CDT Body Mass Index 19.36 05/03/2017 2:40 PM CDT Plan of Treatment Health Maintenance Due Date Last Done Comments [...] Procedure Name Priority Date/Time Associated Diagnosis Comments ECHO STRESS EXERCISE WO CONTRAST W COLOR W LTD DOPPLER Routine 11/02/2023 2:04 PM [employer] Chest pain NC INJECTION AA&/STRD GENICULAR NRV BRANCHES W/IMG Routine 09/14/2023 12:00 AM [employer] Primary osteoarthritis of left knee Chronic pain of left knee from Last 3 Months Results * ECHO STRESS EXERCISE WO CONTRAST W COLOR W LTD DOPPLER (11/02/2023 2:04 PM [employer]) AORTIC VALVE MEAN PG 10 mmHg EJECTION FRACTION 68 % PEAK TR VELOCITY 2.7 m/s LVEDD 4.5 cm Anatomical Region Laterality Modality Ultrasound 11/02/2023 1:11 PM [employer] Narrative 11/02/2023 2:27 PM [employer] STRESS ECHOCARDIOGRAM SAVI CHEN ? Accession#: ?? [id number] : ?1940 83 years Study Date: ?? 11/02/2023 1:11:10 PM Gender: F ?BP: ? 162/94 mmHg Height: 157.00 cm ?BSA: ?1.49 m? ? ? Weight: 51.00 kg ? Tech: ? MTS ? Referring MD: ELIZABETH HAMEED Site: ? [facility] Reading Location: MOBILE OP Patient Location: Outpatient. Procedure: Stress Echo, Color Doppler and Limited Spectral Doppler. Ivan stress echo. Indication for study: Chest Pain Cardiac Rhythm: .Study quality: Fair. Final Impressions: 1. Negative stress echo for ischemia. 2. See separate report for EKG interpretation. 3. Post stress, normal left ventricular size, normal global systolic function with an estimated EF of 65 to 70%. 4. Maximum stress test with 109.7% of age predicted maximum heart rate achieved. 5. During stress exam the patient developed no significant symptoms. 6. The aortic valve is trileaflet and calcified, mild stenosis and trivial regurgitation. Mean gradient ~ 10mmHg. 7. Moderate-severe tricuspid regurgitation. Stress Data: ? HR ?Systolic Diastolic Time Duration Minutes Seconds Baseline 85 bpm ?162 ?94 mmHg ?6 :34 ? Peak ? 151 bpm ?? 208 ?104 mmHg Max Pred HR ?138 % of Max ? 110% Double Product [id number] Echo Findings:This is a negative stress echo test for ischemia. Post stress, normal left ventricular size, normal global systolic function with an estimated EF of 65 to 70%. LV regional wall motion abnormalities are not present post exercise. EKG:See separate report for EKG interpretation. Exam Protocol:The patient presents with no significant symptoms at baseline. The patient exercised 6 min 34 sec to stage III according to the Ivan stress echo protocol. Test terminated due to fatigue. 10.2 METS were achieved. The patient achieved a heart rate of 151 bpm which is 109.7% of maximum predicted heart rate. Maximum systolic blood pressure was 208 [place] [id number]. Maximum stress test with 109.7% of age predicted maximum heart rate achieved. The blood pressure response was hypertensive. The patient developed no significant symptoms during the stress exam. Low (less than 1% annual mortality rate) non invasive risk stratification. Chamber Sizes and Function Normal left ventricular size, normal global systolic function. LV regional wall motion abnormalities are not present. Valves, RV Pressures and Diastolic Function The aortic valve is trileaflet and calcified, mild stenosis and trivial regurgitation. Tricuspid regurgitation is moderate-severe. The tricuspid regurgitant velocity is 2.7 m/s, the estimated right ventricular systolic pressure is 29 mmHg plus right atrial pressure. MEASUREMENTS AND CALCULATIONS 2-D Measurements and LV Function: LVID (d) 4.5 cm LV FS% (2D) 33 % LVID (s) 3.0 cm HR ?85 bpm IVS (d) ??1.0 cm LVPW (d) 1.0 cm Ao Sinus 3.3 cm Asc Ao ?? 3.5 cm LA ? 3.7 cm Aortic Valve: Vmax 2.1 m/s Max PG ??18 mmHg VTI ??0.41 m ??Mean PG 10 mmHg Tricuspid Valve and estimated PA pressures: TR Vmax 2.7 m/s TR maxG 29 mmHg . This study was interpreted by an [facility] accredited facility. CC: [facility] (formerly [facility]) [facility]. ??Final ?? Procedure Note Michael Avila MD - 11/02/2023 STRESS ECHOCARDIOGRAM SAVI CHEN : 1940 83 years Study Date: 11/02/2023 1:11:10 PM Gender: F BP: 162/94 mmHg Height: 157.00 cm BSA: 1.49 m? ? ? Weight: 51.00 kg Tech: [facility] Referring MD: ELIZABETH HAMEED Site: [facility] Reading Location: MOBILE OP Patient Location: Outpatient. Procedure: Stress Echo, Color Doppler and Limited Spectral Doppler. Brucestress echo. Indication for study: Chest Pain Cardiac Rhythm: .Study quality: Fair. Final Impressions: 1. Negative stress echo for ischemia. 2. See separate report for EKG interpretation. 3. Post stress, normal left ventricular size, normal global systolicfunction with an estimated EF of 65 to 70%. 4. Maximum stress test with 109.7% of age predicted maximum heart rateachieved. 5. During stress exam the patient developed no significant symptoms. 6. The aortic valve is trileaflet and calcified, mild stenosis andtrivial regurgitation. Mean gradient ~ 10mmHg. 7. Moderate-severe tricuspid regurgitation. Stress Data: HR Systolic Diastolic Time Duration Minutes Seconds Baseline 85 bpm 162 94 mmHg 6 :34 Peak 151 bpm 208 104 mmHg Max Pred HR 138 % of Max 110% Double Product [id number] Echo Findings:This is a negative stress echo test for ischemia. Poststress, normal left ventricular size, normal global systolic function withan estimated EF of 65 to 70%. LV regional wall motion abnormalities arenot present post exercise. EKG:See separate report for EKG interpretation. Exam Protocol:The patient presents with no significant symptoms atbaseline. The patient exercised 6 min 34 sec to stage III according to [facility] stress echo protocol. Test terminated due to fatigue. 10.2 METS wereachieved. The patient achieved a heart rate of 151 bpm which is 109.7% ofmaximum predicted heart rate. Maximum systolic blood pressure was 208 mmHg[place] [address]. Maximum stress test with 109.7% ofage predicted maximum heart rate achieved. The blood pressure response washypertensive. The patient developed no significant symptoms during thestress exam. Low (less than 1% annual mortality rate) non invasive riskstratification. Chamber Sizes and Function Normal left ventricular size, normal global systolic function. LV regionalwall motion abnormalities are not present. Valves, RV Pressures and Diastolic Function The aortic valve is trileaflet and calcified, mild stenosis and trivialregurgitation. Tricuspid regurgitation is moderate-severe. The tricuspidregurgitant velocity is 2.7 m/s, the estimated right ventricular systolicpressure is 29 mmHg plus right atrial pressure. MEASUREMENTS AND CALCULATIONS 2-D Measurements and LV Function: LVID (d) 4.5 cm LV FS% (2D) 33 % LVID (s) 3.0 cm HR 85 bpm IVS (d) 1.0 cm LVPW (d) 1.0 cm Ao Sinus 3.3 cm Asc Ao 3.5 cm LA 3.7 cm Aortic Valve: Vmax 2.1 m/s Max PG 18 mmHg VTI 0.41 m Mean PG 10 mmHg Tricuspid Valve and estimated PA pressures: TR Vmax 2.7 m/s TR maxG 29 mmHg . This study was interpreted by an [facility] accredited facility. CC: [facility] (med records) [facility]. Final Elizabeth Hameed MD ECHO ORD * NC INJECTION AA&/STRD GENICULAR NRV BRANCHES W/IMG (09/14/2023 12:00 AM [employer]) Eamon Rivas MD PB - NERVOUS SYSTE [facility] SERVICES from Last 3 Months Care Teams Marketing Automation Specialist Relationship Specialty Start Date End Date Conchis Thompson MD [address] [place] [address] PCP - General Family Practice 06/15/18 Sohan Geiger MD Surgery - Urology 01/27/16
--- NOTE | 2023-11-22 09:11 | CRLHL7_ITS ---
For Patients: As a result of the Cures Act, medical imaging exams and procedure reports are released immediately into your electronic medical record. You may view this report before your referring provider. If you have questions, please contact your health care provider. INDICATION: Postoperative right knee. COMPARISON: 10/26/2023. TECHNIQUE: Two views of the right knee. FINDINGS: Moderate to severe soft tissue swelling surrounding the right knee. Postsurgical changes from right total knee arthroplasty. Moderate right knee joint effusion. No acute fracture or hardware complication. IMPRESSION: Postsurgical changes from right total knee arthroplasty without acute fracture or hardware complication. Moderate to severe soft tissue swelling surrounding the right knee. Dictated by Raul Tavera MD @ 11/23/2023 1:50:28 PM (Electronically Signed)
--- NOTE | 2023-11-22 09:14 | W.PM.H&PU ---
History & Physical Update History & Physical Update H&P Reviewed and patient assessed: No changes noted
[2023-11-22] MEDS: SODIUM CHLORIDE 0.9 % (FLUSH) 10 ML SYRINGE IVF (09:44)
--- NOTE | 2023-11-22 09:45 | SUR.PREOP ---
TIME?OUT:?0945 PT/RN/MDA?VERIFICATION?OF?SURGICAL?SITE,?PROCEDURE,?AND?CONSENT OBTAINED?PRIOR?TO?INVASIVE?PROCEDURE.kiki kennedy crna right knee
[2023-11-22] MEDS: TRANEXAMIC ACID 100 MG/ML INJ 1000 MG IV (10:44)
[2023-11-22] MEDS: CEFAZOLIN 2 GM in 0.9 % SODIUM CHLORIDE Mini-bag 100 ML IVPB (10:44)
--- NOTE | 2023-11-22 12:01 | PM.ORPRC ---
Procedure Note Date of procedure: 11/22/23 Procedure: PREOPERATIVE DIAGNOSIS: 1. Right knee osteoarthritis, primary, severe POSTOPERATIVE DIAGNOSIS: 1. Right knee osteoarthritis, primary, severe PROCEDURE: 1. Right total knee arthroplasty SURGEON: Buster Way MD. SCARRER: Sohan CANTU - Of note, a skilled product safety technical assistant was critical for this case to aid in patient positioning, tissue retraction, limb manipulation/positioning, and closure. ANESTHESIA: General endotracheal anesthetic IMPLANTS: DePuy J&J all cemented TKA - Attune PS femur size 6 narrow, size 5 tibia, 6 mm poly spacer, 38 mm patella TOURNIQUET: 90 min at 300 torr EBL: 50 ml COMPLICATIONS: None evident INDICATIONS: The patient is a pleasant 83-year-old female who has experienced severe right knee pain and difficulty bearing weight. Workup included x-rays which revealed severe osteoarthrosis in the knee. Given the deformity, the dysfunction, and the pain, as well as the failure of nonoperative management, recommendation was made for surgery. FINDINGS: Full-thickness chondral loss diffusely throughout the lateral and patellofemoral compartments. To lesser degree medial compartment. Degenerative meniscus pathology both medial and lateral compartments. Large effusion upon entering the joint. DESCRIPTION OF PROCEDURE: Following a thorough discussion of risks, benefits, and alternatives consent was obtained and the right knee was marked. The patient was brought to the operating room and placed supine on the operating table. Induction of anesthesia was undertaken. 1 g IV Ancef and 1 g tranexamic acid was administered within 1 hr of incision preoperatively. Proper time-out was performed identifying proper patient, site, procedure. The operative extremity was prepped and draped in the appropriate sterile fashion using ChloraPrep after the patient was positioned supine with all bony prominences well padded. A longitudinal, anterior, midline skin incision was made starting approximately 3cm proximal to the superior pole of the patella and advanced distal to the tibial tubercle. A subvastus approach was performed with excellent exposure. A medial subperiosteal tibial sleeve was created with knife, hernandez elevator and curved osteotome. The retropatellar fatpad was resected and the synovium in the suprapatellar pouch excised to visualize the anterior femoral cortex. Femoral preparation was performed via an intramedullary guide. Step drill allowed access into the femoral canal. The distal cutting guide was placed with 5? of valgus and 12 mm cut on the distal femur. An additional 2 mm did require resection given substantial flexion contracture noted preoperatively. Femur was sized using a posterior referencing guide in 3? of external rotation. This found have a best fit with the sizing noted above. The 4 in 1 cutting block was then placed, and the distal femur shaped accordingly. The box cut was then created and the trial implant inserted to confirm appropriate fit. We turned our attention to the proximal tibia. Extramedullary guide was utilized for cutting with the goal of being 90 degree cut from the mechanical axis of the tibia in the varus/valgus plane utilizing tibial crest as the primary alignment. Initially a 3 mm resection was performed from the medial tibial plateau. An additional 2 mm did require resection to achieve appropriate balancing. Ultimately, balancing was achieved in both flexion and extension in both varus and valgus. The knee was able to achieve full extension as well comfortably. The patella was initially measured and found have a thickness of 21 mm. It was resected back to approximately 14 mm. It was sized to be a best fit with as noted above. This was drilled, trial placed. All trials were placed and found to have an excellent stability and balance. At this stage, trial implants were removed, the knee was thoroughly irrigated with normal saline, and the cement was mixed. After irrigation, the knee was thoroughly dried, and cement placed, with the real tibial and femoral implants placed along with the patella. Trial poly spacer was placed and confirmed to have excellent range of motion and full extension, and the real poly spacer opened and inserted. All extra cement was removed, and a 3 min Betadine soak performed. Finally, a final irrigation round with normal saline was performed. Closure performed with 0 Vicryl and #0 Stratafix for the quad tendon/retinaculum. 2-0 Vicryl for the subcutaneous and 4-0 Stratafix for subcuticular closure. Dressings were applied and the patient was awoken from anesthesia after the tourniquet deflated and transferred the PACU in stable condition. A skilled product safety technical assistant was critical for this case to aid in patient positioning, tissue retraction, bone exposure, limb manipulation/positioning, patient safety, and closure. PLAN: 1. Weight bear as tolerated operative extremity. 2. 23 hr perioperative antibiotics. 3. Ice. 4. PT/OT consults for ambulation assistance/mobility education. 5. Social work consult for discharge planning. 6. DVT prophylaxis with at SCDs, Colt Hose, and aspirin twice daily.
[2023-11-22] MEDS: fentaNYL 100 MCG/2 ML inj 50 MCG IVP ×2 (12:48→12:58)
--- NOTE | 2023-11-22 13:16 | W.ANESCHARGE ---
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
--- NOTE | 2023-11-22 13:17 | P.NB_ITS ---
Nerve Block Nerve Block Time Seen by Provider: 10:00 Date Seen: 11/22/23 Type of block requested by surgeon for post-operative analgesia: adductor canal Side: right Time out performed: Yes Verification of patient name: Yes Verification of date of : Yes Site marking: site marked Name of person performing procedure: Devante Mckenna Continuous monitoring Was continuous monitoring of O2 sat, B/P, quality improvement engineer, recorded every 15 minutes?: Yes Procedure Checklist: sterile prep, needles and gloves Ultrasound guided. Images saved: Yes Medications given in 5ml increments after negative aspiration: Marcaine %: 0.5 mL: 20 Needle gauge: 22 Decadron (mg): 10 Precedex (mcg): 25 Patient tolerated procedure well: Yes Additional comments: Injected in 5mL increments after negative aspiration Block Charges Block Charge (with Pro Fee): Femoral Nerve Use of Ultrasound Machine for Block: Yes- US Guidance/pain block
--- NOTE | 2023-11-22 13:18 | W.PM.NB ---
Nerve Block Nerve Block Time Seen by Provider: 13:18 Date Seen: 11/22/23 Type of block requested by surgeon for post-operative analgesia: geniculars Side: right Time out performed: Yes Verification of patient name: Yes Verification of date of : Yes Site marking: site marked Name of person performing procedure: Devante Mckenna Continuous monitoring Was continuous monitoring of O2 sat, B/P, cardiac exercise specialist, recorded every 15 minutes?: Yes Procedure Checklist: sterile prep, needles and gloves Ultrasound guided. Images saved: No Medications given in 5ml increments after negative aspiration: Marcaine %: 0.5 mL: 3 Needle gauge: 25 Patient tolerated procedure well: Yes Additional comments: injected 1 mL at each site for total of 3 mL after negative aspiration Block Charges Block Charge (with Pro Fee): Genicular Nerve Block Use of Ultrasound Machine for Block: No
[2023-11-22] MEDS: OXYCODONE 5 MG TABLET PO (14:08)
[2023-11-22] MEDS: LACTATED RINGERS 1000 ML 1,000 ML 75 ML IV (14:31)
--- NOTE | 2023-11-22 15:15 | PM.IMCN1 ---
Date of Consult Patient: [facility] Patient Consult date: 11/22/23 Requesting Physician: Orthopedics Primary Care Provider: Elizabeth Hameed MD Consult Narrative Reason for consult: severe TR, HTN, chronic LBP Narrative: Savi Hughes is a 83 year old female with history of severe bilateral knee osteoarthritis, severe tricuspid regurgitation, hypertension, chronic low back pain, osteopenia, cystocele with history of urinary retention who underwent an elective right total knee arthroplasty today by Dr. Way. Her daughter and granddaughter are there with her in her room postoperatively. She is feeling well. She does complain of some hoarseness that was not present preoperatively. Anesthesia was block with sedation. She also reports chronic diarrhea for which she takes 1 dose of loperamide daily. She is concerned about taking senna. Review of Systems Status of ROS: Reports: 6 or more systems reviewed and unremarkable except as noted in History and below [facility] Medical History (Updated 11/22/23 @ 15:51 by Tamara Fierro MD) Osteoarthritis of left knee ?M17.12 - Unilateral primary osteoarthritis, left knee (ICD-10) Osteoarthritis of right knee ?M17.11 - Unilateral primary osteoarthritis, right knee (ICD-10) Cystocele Health care directive on file (11/19/21) ?Z78.9 - Other specified health status (ICD-10) Severe tricuspid regurgitation ?I07.1 - Rheumatic tricuspid insufficiency (ICD-10) Urinary retention ?R33.9 - Retention of urine, unspecified (ICD-10) Osteopenia ?M85.80 - Other specified disorders of bone density and structure, unspecified site (ICD-10) Migraine aura without headache ?G43.109 - Migraine with aura, not intractable, without status migrainosus (ICD-10) Chronic low back pain ?M54.50 - Low back pain, unspecified (ICD-10) ?G89.29 - Other chronic pain (ICD-10) Bilateral hearing loss ?H91.93 - Unspecified hearing loss, bilateral (ICD-10) Adenomatous polyp of colon (2009) ?D12.6 - Benign neoplasm of colon, unspecified (ICD-10) Primary hypertension ?I10 - Essential (primary) hypertension (ICD-10) History of bladder cancer ?Z85.51 - Personal history of malignant neoplasm of bladder (ICD-10) Surgical History (Updated 11/22/23 @ 15:49 by Tamara Fierro MD) H/O foot surgery (10/23/08) ?Z98.890 - Other specified postprocedural states (ICD-10) H/O cystoscopy (12/10/14) ?Z98.890 - Other specified postprocedural states (ICD-10) History of cataract surgery ?Z98.49 - Cataract extraction status, unspecified eye (ICD-10) History of total hysterectomy with removal of both tubes and ovaries (1995) ?Z90.710 - Acquired absence of both cervix and uterus (ICD-10) ?Z90.722 - Acquired absence of ovaries, bilateral (ICD-10) ?Z90.79 - Acquired absence of other genital organ(s) (ICD-10) History of laparotomy (1999) ?Z98.890 - Other specified postprocedural states (ICD-10) History of appendectomy (1997) ?Z90.49 - Acquired absence of other specified parts of digestive tract (ICD-10) Family History Brother Colon cancer Social History (Updated 11/22/23 @ 15:46 by Tamara Fierro MD) Narrative: Nonsmoker. Alcohol use once a year on [place]. Wishes to be a full code. What is your current living situation?: I presently have a place to live Problems where you live: no known problems In the past 12 months, utilities in danger of being shut off: no In past 12 months, lack of transportation kept you from medical appts, meetings, work, or getting things needed for daily living: no In the past 12 mos, have been you worried that your food would run out before you had money to buy more?: never true In the past 12 mos, the food you bought just didn't last and you didn't have money to buy more?: never true Highest level of school completed/degree received: decline to answer Smoking Status: Never smoker Do you use any of these nicotine containing products: None Second hand tobacco smoke exposure: No How often do you have a drink containing alcohol: monthly or less How many standard drinks containing alcohol do you have on a typical day: 1 or 2 How often do you have six or more drinks on one occasion: Never AUDIT-C Alcohol total score: 1 Non-prescribed substance use: denies use Caffeine: Yes How often does anyone, including family, friends and others, physically hurt you: never How often does anyone, including family, friends and others, insult or talk down to you: never How often does anyone, including family, friends and others, threaten you with harm: never How often does anyone, including family, friends and others, scream or curse at you: never Little interest or pleasure in doing things: not at all Feeling down, depressed, or hopeless: several days service: No Meds Home Medications and Allergies Home Medications Medication Instructions Recorded Confirmed Type calcium carbonate 500 mg calcium 500 mg PO DAILY 09/29/22 11/22/23 History (1,250 mg) tablet fish oil-dha-epa See Rx Instructions PO DAILY 09/29/22 11/22/23 History glucosamine sulfate 500 mg capsule 500 mg PO QDAY 09/29/22 11/22/23 History vitamin B complex 1 tab PO QDAY 09/29/22 11/22/23 History zyflamed PO DAILY 10/21/23 11/12/23 History Allergies Allergy/AdvReac Type Severity Reaction Status Date / Time codeine Allergy Unknown Gastrointestinal Verified 11/22/23 08:56 Upset Exam Narrative: Exam Narrative: General: No acute distress. Awake alert oriented x3. HEENT: Normocephalic atraumatic, pupils equally round and reactive to light and accommodation. Hoarse. Oropharynx clear. Mucous membranes are moist. No cervical lymphadenopathy, thyromegaly or carotid bruits. No JVD. Cardiovascular: Regular rate and rhythm. Grade 4/6 holosystolic murmur loudest at the right sternal border. Chest: No increased work of breathing. Clear to auscultation bilaterally. No crackles or wheezes. Abdomen: Bowel sounds present. Soft, nondistended, nontender. No hepatosplenomegaly or masses. Extremities: Right knee bandage is clean, dry, and intact. No edema, no cyanosis or clubbing. Const: Vital Signs, click to edit/add: Vital Signs - 24 hr 11/22/23 09:22 11/22/23 09:54 11/22/23 10:01 Temperature 98.5 F Pulse Rate 71 68 70 Pulse Rate [Pulse Oximeter] Respiratory Rate 16 16 16 Blood Pressure 170/103 H 168/100 H 134/99 H Blood Pressure [Le ft Arm] Pulse Oximetry 100 100 100 Oxygen Delivery Me thod Room Air Nasal Cannula Nasal Cannula Oxygen Flow Rate 3 3 11/22/23 12:35 11/22/23 12:40 11/22/23 12:45 Temperature 98.0 F Pulse Rate 69 69 73 Pulse Rate [Pulse Oximeter] Respiratory Rate 13 13 16 Blood Pressure 154/98 H 151/92 H 146/95 H Blood Pressure [Le ft Arm] Pulse Oximetry 94 97 98 Oxygen Delivery Me thod Room Air Room Air Room Air Oxygen Flow Rate 11/22/23 12:50 11/22/23 12:55 11/22/23 13:00 Temperature 97.8 F Pulse Rate 64 70 66 Pulse Rate [Pulse Oximeter] Respiratory Rate 17 18 17 Blood Pressure 135/92 H 136/86 133/91 H Blood Pressure [Le ft Arm] Pulse Oximetry 99 97 97 Oxygen Delivery Me thod Room Air Room Air Room Air Oxygen Flow Rate 11/22/23 13:05 11/22/23 13:30 11/22/23 13:44 Temperature 98.0 F 96.9 F L 99.0 F Pulse Rate 73 73 Pulse Rate [Pulse Oximeter] 67 Respiratory Rate 15 16 16 Blood Pressure 133/82 Blood Pressure [Le ft Arm] 121/84 135/93 H Pulse Oximetry 97 99 Oxygen Delivery Me thod Room Air Room Air Room Air Oxygen Flow Rate 11/22/23 13:45 11/22/23 14:00 11/22/23 15:00 Temperature 97.1 F L Pulse Rate Pulse Rate [Pulse Oximeter] 76 81 Respiratory Rate 16 16 Blood Pressure Blood Pressure [Le ft Arm] 126/91 H 131/97 H Pulse Oximetry 98 98 97 Oxygen Delivery Me thod Room Air Room Air Oxygen Flow Rate 97.1 11/22/23 15:00 Temperature Pulse Rate Pulse Rate [Pulse Oximeter] 80 Respiratory Rate 16 Blood Pressure Blood Pressure [Le ft Arm] Pulse Oximetry Oxygen Delivery Me thod Oxygen Flow Rate Assessment and Plan Assessment and plan (1) Status post total right knee replacement: Problem comment: 11/22/[address] Routine postop cares. Pain control is adequate. VTE prophylaxis with twice a day baby aspirin. Status: Acute (2) Urinary retention: Problem comment: - PVR 250 cc on 11/20/22. - monitor for urinary retention with bladder scans. Status: Chronic (3) Severe tricuspid regurgitation: Problem comment: Moderate to severe TR noted by exercise stress echo here 11/10 (echo negative for ischemia), cardiology consult ordered 11/10 Status: Chronic (4) Primary hypertension: Problem comment: Continue metoprolol. Status: Chronic (5) Osteoarthritis of right knee: Problem comment: Severe, [id number] Status: Chronic (6) Osteoarthritis of left knee: Problem comment: severe, [id number] Status: Chronic
[2023-11-22] MEDS: BENZOCAINE/MENTHOL 1 EACH LOZENGE MUCOUS MEM (17:23)
[2023-11-22] MEDS: CEFAZOLIN 1 GM in 0.9 % SODIUM CHLORIDE Mini-bag 100 ML IVPB (18:26)
[2023-11-22] MEDS: ASPIRIN 81 MG TABLET EC PO (20:41)
[2023-11-23] MEDS: ACETAMINOPHEN 500 MG TABLET 1000 MG PO ×2 (01:41→08:37)
[2023-11-23] MEDS: CEFAZOLIN 1 GM in 0.9 % SODIUM CHLORIDE Mini-bag 100 ML IVPB ×2 (01:42→10:02)
[2023-11-23 01:48] VITALS: BP 137/89; PULSE 78; RESP 16; TEMP 37; O2SAT 98
--- NOTE | 2023-11-23 06:29 | PC.NURSE ---
23-07: pleasant and cooperative. Pt wants to be very indep, walking halls frequently, tolerating well. Rated pain 1-2/10, declined need for prn medication.?Dressing to knee CDI, cryo cuff on.
[2023-11-23 06:58] LABS: Basophils Absolute Auto 0.02 K/uL (0.00-0.30); Basophils Percent Auto 0.2 % (0.0-3.0); Eosinophils Absolute Auto 0.02 K/uL (0.00-0.50); Eosinophils Percent Auto 0.2 % (0.0-7.0); Hematocrit 29.8 % (33.0-51.0); Hemoglobin* 9.5 gm/dL (12.0-16.0); Immature Granulocytes Abs Auto 0.02 K/uL (0.00-0.30); Immature Granulocytes Pct Auto 0.2 %; Lymphocytes Percent Auto 17.8 % (20-44); Mean Corpuscular HGB Conc 32 gm/dL (32-36); Mean Corpuscular Hemoglobin 25 pg (26-34); Mean Corpuscular Volume 79 fL (80-100); Monocytes Percent Auto 9.7 % (0.0-11.0); Neutrophils Absolute Auto 6.98 K/uL (1.7-7.0); Neutrophils Percent Auto 71.9 % (42.0-72.0); Platelet Count* 225 K/uL (140-440); RDW Coefficient of Variation % 14.5 % (11.5-15.5); Red Blood Count 3.77 m/uL (4.00-5.20); White Blood Count* 9.71 K/uL (4.50-11.00)
[2023-11-23 07:00] VITALS: BP 146/91; PULSE 73; RESP 16; TEMP 36.4; O2SAT 99
[2023-11-23 07:05] LABS: Potassium* 4.1 mmol/L (3.6-5.1); Sodium* 130 mmol/L (135-149)
[2023-11-23 07:08] LABS: Blood Urea Nitrogen* 19 mg/dL (7-30); Creatinine* 0.5 mg/dL (0.5-1.5); Estimated Glomerular Filt Rate 94 ml/min
[2023-11-23 07:10] LABS: Slide Review Reflex No
[2023-11-23] MEDS: METOPROLOL SUCCINATE (XL) 25 MG TAB PO (08:26)
[2023-11-23] MEDS: ASPIRIN 81 MG TABLET EC PO (08:26)
[2023-11-23] MEDS: OXYCODONE 5 MG TABLET PO (08:27)
[2023-11-23] MEDS: CALCIUM CARBONATE 500 MG TABLET PO (08:27)
--- NOTE | 2023-11-23 11:08 | PC.NURSE ---
Discharge: Patient is alert and oriented x4, ambulating hallways, tolerating a reg. diet. Pain is 4/10 PRN oxy and tylenol administered prior to Therapy. Dressing to right knee is C/D/I. Cryocuff to op site. Patient VSS. Patient discharged today at 1035 to home accompanied by dtr. Patient's IV removed intact and belongings list signed. Patient verbalized understanding of discharge instructions.
--- NOTE | 2023-11-23 12:54 | PM.ORPN ---
Subjective Subjective Date Seen: 11/23/23 Principal diagnosis: Status postop day 1 right total knee arthroplasty Interval history: Patient reports doing well. No acute events over night. Walking frequently through the halls on her own. Denying senna administration due to history diarrhea. Pain managed with scheduled and PRN medications, ice. DVT prophylaxis: 81 mg aspirin by mouth twice daily, bilateral knee high Colt stockings, SCDs, walking. Denies fevers, chills, aches, N/V, CP, SOB/MICHAEL, or lightheadedness. Ortho Exam Narrative Exam Narrative: -Patient appears comfortable; no apparent acute distress -Alert and oriented times 3 -Operative knee mildly swollen; soft tissues supple; no ecchymosis; no erythematous streaking Warmth appropriate -Surgical dressing clean, dry, intact; no drainage -Bilateral calfs soft; no significant swelling, edema, tenderness, erythema, discoloration, warmth, or palpable cords -2+ DP/PT pulses, intact dermatomes and myotomes distally (5/5 strength) Const Vital Signs, click to edit/add: Vital Signs - 24 hr 11/22/23 12:55 11/22/23 13:00 11/22/23 13:05 Temperature 98.0 F Pulse Rate 70 66 73 Pulse Rate [Pulse Oximeter] Respiratory Rate 18 17 15 Blood Pressure 136/86 133/91 H 133/82 Blood Pressure [Left Arm] Pulse Oximetry 97 97 97 Oxygen Delivery Method Room Air Room Air Room Air 11/22/23 13:30 11/22/23 13:44 11/22/23 13:45 Temperature 96.9 F L 99.0 F Pulse Rate 73 Pulse Rate [Pulse Oximeter] 67 76 Respiratory Rate 16 16 16 Blood Pressure Blood Pressure [Left Arm] 121/84 135/93 H 126/91 H Pulse Oximetry 99 98 Oxygen Delivery Method Room Air Room Air Room Air 11/22/23 14:00 11/22/23 14:15 11/22/23 14:45 Temperature 97.1 F L 98.1 F 98.3 F Pulse Rate Pulse Rate [Pulse Oximeter] 81 78 80 Respiratory Rate 16 16 16 Blood Pressure Blood Pressure [Left Arm] 131/97 H 117/83 117/86 Pulse Oximetry 98 99 97 Oxygen Delivery Method Room Air Room Air Room Air 11/22/23 15:00 11/22/23 15:00 11/22/23 15:15 Temperature 98.5 F Pulse Rate Pulse Rate [Pulse Oximeter] 77 Respiratory Rate 16 16 Blood Pressure Blood Pressure [Left Arm] 112/72 Pulse Oximetry 97 97 Oxygen Delivery Method Room Air 11/22/23 16:00 11/22/23 17:00 11/22/23 18:00 Temperature 98.5 F 97.7 F 97.7 F Pulse Rate Pulse Rate [Pulse Oximeter] 80 78 77 Respiratory Rate 16 16 16 Blood Pressure Blood Pressure [Left Arm] 103/73 113/79 120/79 Pulse Oximetry 97 100 100 Oxygen Delivery Method Room Air Room Air Room Air 11/22/23 19:00 11/22/23 23:00 11/22/23 23:00 Temperature 97.7 F Pulse Rate Pulse Rate [Pulse Oximeter] 81 Respiratory Rate 16 16 Blood Pressure Blood Pressure [Left Arm] 118/81 Pulse Oximetry 100 100 Oxygen Delivery Method Room Air 11/22/23 23:00 11/23/23 01:48 11/23/23 07:00 Temperature 98.8 F 98.6 F Pulse Rate Pulse Rate [Pulse Oximeter] 74 78 Respiratory Rate 16 16 Blood Pressure Blood Pressure [Left Arm] 125/82 137/89 Pulse Oximetry 99 98 99 Oxygen Delivery Method Room Air Room Air 11/23/23 07:00 11/23/23 07:00 Temperature 97.6 F Pulse Rate Pulse Rate [Pulse Oximeter] 73 73 Respiratory Rate 16 16 Blood Pressure Blood Pressure [Left Arm] 146/91 H Pulse Oximetry 99 Oxygen Delivery Method Room Air Assessment and Plan Assessment and plan (1) Status post total right knee replacement: Problem details: 11/22/[address] Routine postop cares. Pain control is adequate. VTE prophylaxis with twice a day baby aspirin. Status: Acute (2) Urinary retention: Problem details: - PVR 250 cc on 11/20/22. - monitor for urinary retention with bladder scans. Status: Chronic (3) Severe tricuspid regurgitation: Problem details: Moderate to severe TR noted by exercise stress echo here 11/10 (echo negative for ischemia), cardiology consult ordered 11/10 Status: Chronic (4) Primary hypertension: Problem details: Continue metoprolol. Status: Chronic (5) Osteoarthritis of right knee: Problem details: Severe, [id number] Status: Chronic (6) Osteoarthritis of left knee: Problem details: severe, pwce-ut-sono Status: Chronic Plan - Complete 23 hour perioperative antibiotics. - PT/OT consult for education and assistance. - Social work consult for discharge planning - Prescribed analgesics as needed - DVT prophylaxis: 81 mg aspirin by mouth twice daily, bilateral knee high Colt Hose stockings and SCDs - Anticipation is for discharge to home with family 11/23/2023 if the patient remains medically stable, pain is controlled, and they are safe with mobilization.
== END 2023-11-23 10:35 | disposition home or self-care (01) ==
LOC: OR 08:52 → MEDSURG 08:54
PROVIDERS: PCP Internal Medicine; Visit Provider Orthopaedic Surgery Sports Medicine
PROC: (CPT 27447; principal; 2023-11-22 10:30)
DX: M17.11 Unilateral primary osteoarthritis, right knee (principal); G89.18 Other acute postprocedural pain; I10 Essential (primary) hypertension; I07.1 Rheumatic tricuspid insufficiency; G89.29 Other chronic pain; M54.50 Low back pain, unspecified; M85.80 Other specified disorders of bone density and structure, unspecified site; R33.8 Other retention of urine
CPT/HCPCS: 27447; 01402; 36415; 64447; 64454; 73560; 76942; 82565; 84132; 84295; 84520; 85025; 97110; 97116; 97161; 97165; 97535; 99100; A9270; C1776; J0665; J0690; J1100; J1170; J1885; J2250; J2405; J2704; J2710; J3010; J7120

== ENCOUNTER 2024-01-07 14:00 | Outpatient (RCR) | payer MEDICARE, BC, SELFPAY ==
--- NOTE | 2023-11-08 16:14 | PT.OPEX ---
PT [place] Outpatient Eval PT [facility] Outpatient Eval Start: 11/08/23 13:30 Freq: Status: Active Protocol: Document 11/08/23 13:30 AMS (Rec: 11/08/23 16:12 AMS [id number]) E-signed By Dana Yost PT Physical Therapy Outpatient Evaluation Insurance Information Recert Due Date 02/01/24 Insurance Name Medicare B,Blue Cross/Blue Shield Medical Diagnosis S/p right total knee arthroplasty 11/22/23 Unilateral knee osteoarthritis Presence of right artificial knee joint Treating Diagnosis Aftercare following joint replacement Muscle weakness Right knee pain Right knee stiffness Difficulty walking Referring MD Buster Way Subjective Subjective Savi is a new patient in my office today. She is a pleasant 83yr old female. Presents with bilateral knee pain. She states she has been having bilateral knee pain for 2 years. The pain is sharp, intermittent and relieves with rest. The knee has restrictions in ROM. Right is greater than left. Her pain is of the medial knee. The pain is worse with going down stairs, full extension. The patient has tried ice, Tylenol /oral NSAIDs, rest, activity modification, COOLIEF (Dr. Rivas), physical therapy, home exercise plan, cortisone injection all with minimal and non-lasting relief. -Buster Way, 10/26/23, confirmed by patient Patient is an 83-year-old female who presents for pre- operative right knee TKA appointment with surgery scheduled for 11/22/23. X-rays show severe bilateral knee osteoarthritis with tricompartmental osteophytes R > L. She has had gel shots, steroid injections, and nerve ablations, which were only partially helpful. She has also tried PT without lasting success. 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 Easing factors include rest. She is able to take some time off from teaching yoga after surgery or teach without doing the motions (does remotely). She enjoys walking and sometimes light resistance exercises for exercise in addition to yoga. She lives alone in a 1-story home with a walkout basement, has 11 stairs to enter with 2 railings. She does not need to go downstairs except to leave the house or feed her cats. Her daughter will be present 24-7 after surgery and able to assist. Please see pre-op note for complete home set up. She is independent without gait aid at baseline, but able to borrow a FWW from a friend . PMHx significant for lumbar fusion L3-L5 in last 5 years, bladder cancer, tricuspid valve insufficiency, and osteopenia. 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 SLS: 10 sec BL Palpation/joint mobility: No tenderness to palpation. Decreased palpability of joint line bilaterally. Swelling/observation: Bilateral swelling noted of distal quad/medial knee. Functional Test Performed & Score LEFS: Not today Assessment Assessment/Impression Patient is a 83 year old female presenting for pre- operative visit prior to right total knee arthroplasty scheduled for 11/22/23. Upon assessment, patient demonstrates decreased knee ROM, decreased proximal hip force output, swelling, and antalgic gait pattern. These impairments lead to difficulties with climbing stairs, walking, standing, squatting, doing yoga, and sleeping. Patient will be seen post operatively to reassess impairments that will be addressed with skilled care. Savi would greatly benefit from skilled PT in order to progress strength, ROM, and ambulation post operatively in order to perform all household and work duties without significant difficulty or discomfort. Primary Functional Limitations climbing stairs, walking, standing, squatting, doing yoga Plan of Care Rehabilitation Potential Good Physical Therapy Goals After pre-op visit: ? Patient will be independent with HEP ? Patient will verbalize knowledge of stair navigation and proper sequencing ? Patient will have knowledge on home adaptations and use of assistive devices post operatively ? Patient will have knowledge of edema management ALL MET Coordination/Communication With Referral Source Treatment Plan/Direct Interventions Gait Training,Joint Mobilization,Manual Therapy, Neuromuscular Re-ed,Self-Care/ Home Management,Therapeutic Activities,Therapeutic Exercises Frequency/Duration 1x visit prior to surgery on . Patient scheduled to start outpatient PT s/p TKA on 11/25/23. Has HEP to start with pre-operatively. Patient Will Be Discharged From Therapy Completion of LTG(s), Independent w/HEP, Independently Progressing Evaluation Billing Untimed Code Treatment Minutes 15 Complexity Low Certification Information Initial Certification Date 11/08/23 Ending Certification Date 02/01/24 Provider Signature Shows Agreement With POC & Medical Necessity Physician Signature & Date Requested Please Sign/Date Here Physician Comment/Change : Physician NPI Number #
== END 2024-02-17 09:17 | disposition home or self-care (01) ==
PROVIDERS: PCP Internal Medicine; Visit Provider Orthopaedic Surgery Sports Medicine
DX: M17.11 Unilateral primary osteoarthritis, right knee (principal); Z51.89 Encounter for other specified aftercare
CPT/HCPCS: 97110; 97112; 97140; 97161; 97164

== ENCOUNTER 2024-01-31 12:45 | Outpatient (CLI) | payer MEDICARE, BC, SELFPAY ==
--- OUTSIDE RECORDS SUMMARY | 2024-01-31 12:47 | XMS_ITS | Clinical Summary ---
Author Name Unknown Organization [facility] Address [place], [place] [address] Care Team Providers Care Streetcar Starter Name Role Phone Sohan Geiger MD Unavailable [phone] Conchis Thompson MD Primary Care Provider + Allergies Active Allergy Reactions Criticality Noted Date Comments Codeine Intolerance-Can't Take Makes her nauseated Medications Medication Sig Dispensed Refills Start Date End Date Status [place] [id number] ol 500 mg-500 mcg -1 mg-12.5 mg cap Daily Active Garlic 100 mg tab Active Rutin 500 mg tab Daily Active calcium carbonate (OS-LULU 500) 500 mg calcium (1,250 mg) tablet once daily. Active acetaminophen (TYLENOL EXTRA STRGTH) 500 mg tablet Take 1,000 mg by mouth every 6 hours if needed. 08/31/2019 Active glucosamine 500 mg capsule Active lutein 6 mg cap Daily Active estradioL (ESTRACE) 0.01% (0.1 mg/g) vaginal cream INSERT 0.5GM VAGINALLY ONCE NIGHTLY FOR 2 WEEKS, THEN USE TWICE WEEKLY 10/08/2022 Active Active Problems Problem Noted Date [...] is size. See colonoscopy report 2009 at [facility]. Recommend CT colonograpy every 5 [...] Encounters Date Type Department Care Team Description 01/21/[address] [place] [address] Hamlet Worthington MD Results 12/31/2023 2:00 PM CDT Office Visit [address] [address] Hamlet Worthington MD 12/31/[address] [place] [facility] [address] Hamlet Worthington MD Follow Up 11/02/2023 1:00 PM [facility] Ancillary Procedure [facility][note 3] [address] [place] [address] 11/02/2023 Travel from Last 3 Months Immunizations Name Administration [...] T Respiratory Rate 16 11/17/2021 8:29 PM [facility] Oxygen Saturation 100% 05/19/2023 2:02 PM CDT [...] 01/27/2016, 01/27/2016 Medicare Wellness for age 65+ 02/27/2018, 01/27/2016, 07/12/2012, Additional history exists BMI (ht and wt on same day) for age 18+ 05/03/2018 05/03/2017, 04/15/2017, 03/04/2017, Additional history exists Tetanus booster 05/26/2021 05/26/2011, 12/16/2001 Influenza for age 65+ 06/18/2024 Tdap Completed 05/26/2011 Pneumococcal series for age 65+ Completed 6, 10/17/2008 DEXA/DXA scan for age 65+ Completed 01/28/2016, COVID-19 vaccine series Completed 10/21/19 24, 07/17/2021, 12/14/2020, Additional history exists Procedures Procedure Name Priority Date/Time Associated Diagnosis Comments EXTENDED HOLTER Routine 01/25/2024 12:00 AM CDT Palpitations ECHO STRESS EXERCISE WO CONTRAST W COLOR W LTD DOPPLER Routine 11/02/2023 2:04 PM [facility] Chest pain XR DXA BONE DENSITY 2 SITES AXIAL Routine 01/28/2016 11:23 AM CDT Asymptomatic menopausal state Screening for osteoporosis from Last 3 Months or Most Recently Relevant to Health Maintenance Results * Zio XT (01/25/2024 12:00 AM CDT) Hamlet Worthington MD CARDIAC SERVICE S ORD * ECHO STRESS EXERCISE WO CONTRAST W COLOR W LTD DOPPLER (11/02/2023 2:04 PM [facility]) AORTIC VALVE MEAN PG 10 mmHg EJECTION FRACTION 68 % PEAK TR VELOCITY 2.7 m/s LVEDD 4.5 cm Anatomical Region Laterality Modality Ultrasound 11/02/2023 1:11 PM [facility] Narrative 11/02/2023 2:27 PM [facility] STRESS ECHOCARDIOGRAM SAVI CHEN ? Accession#: ?? [id number] : ?1940 83 years Study Date: ?? 11/02/2023 1:11:10 PM Gender: F ?BP: ? 162/94 mmHg Height: 157.00 cm ?BSA: ?1.49 m? ? ? Weight: 51.00 kg ? Tech: ? MTS ? Referring MD: ELIZABETH HAMEED Site: ? [facility] Reading Location: MOBILE OP [...] % of Max ? 110% Double Product [id number] Echo Findings:This is a negative stress echo [...] [place] [address]. Maximum stress test with 109.7% of age [...] . This study was interpreted by an [facility] accredited facility. CC: [facility] ([facility]) [facility]. ??Final ?? Procedure Note Michael Avila MD - 11/02/2023 STRESS ECHOCARDIOGRAM SAVI CHEN : 1940 83 years Study Date: 11/02/2023 1:11:10 PM Gender: F BP: 162/94 mmHg Height: 157.00 cm BSA: 1.49 m? ? ? Weight: 51.00 kg Tech: [facility] Referring MD: ELIZABETH HAMEED Site: [facility] Reading Location: MOBILE OP Patient [...] 138 % of Max 110% Double Product [id number] Echo Findings:This is a negative stress echo test for ischemia. Poststress, normal left ventricular size, normal global systolic function withan estimated EF of 65 to 70%. LV regional wall motion abnormalities arenot present post exercise. EKG:See separate report for EKG interpretation. Exam Protocol:The patient presents with no significant symptoms atbaseline. The patient exercised 6 min 34 sec to stage III according to [facility] stress echo protocol. Test terminated due to fatigue. 10.2 METS wereachieved. The patient achieved a heart rate of 151 bpm which is 109.7% ofmaximum predicted heart rate. Maximum systolic blood pressure was 208 [place] [address]. Maximum stress test with 109.7% ofage predicted [...] interpreted by an [facility] accredited facility. CC: [facility] (med records) [facility]. Final Elizabeth Hameed MD ECHO ORD * (ABNORMAL) XR DXA BONE DENSITY 2 SITES AXIAL (01/28/2016 11:23 AM CDT) Anatomical Region Laterality Modality Spine, HIPS, HIPL, HIPR Other Narrative 01/29/2016 4:29 PM CDT Please see scanned document for results of this study. Maria R Steiner DO DEXA from Last 3 Months or Most Recently Relevant to Health Maintenance Care Teams Streetcar Starter Relationship Specialty Start Date End Date Conchis Thompson MD [address] [place] [address] PCP - General Family Practice 06/15/18 Sohan Geiger MD Surgery - Urology 01/27/16
--- NOTE | 2024-01-31 13:00 | CT_ITS ---
Patient: HUNTER CHEN Facility:?[facility] Patient ID:?[id number] Site Patient ID:?[id number]. Site :?1940 Study:?CT-Chest w/o-01/31/2024 1:05:12 PM Ordering Physician:Andrea Hameed Final Report: INDICATION: Follow-up abnormal lung finding. TECHNIQUE: Noncontrast CT images of the chest. COMPARISON: CT chest 10/25/2023. FINDINGS: Improved and partially resolved small clustered nodular and tree-in-bud opacities within the lateral right middle lobe (series 3 image [id number]). No new or enlarging pulmonary nodules. No focal consolidation, pleural effusion, or pneumothorax. The heart size is normal. No pericardial effusion. No mediastinal or hilar lymphadenopathy. Limited images of the upper abdomen demonstrate a stable small hypoattenuating lesion in the right hepatic lobe, potentially representing a cyst. Akic-hm-rsghpigy biconvex thoracic scoliosis. Exaggerated thoracic kyphosis. Multilevel thoracic spondylosis. No aggressive osseous lesions. IMPRESSION: Improved and partially resolved small clustered nodular and tree-in-bud opacities within the middle lobe of the right lung. Findings are likely secondary to resolving inflammatory or infectious process. No new or enlarging pulmonary nodules. Please note that all CT scans at this facility use dose modulation, iterative reconstruction, and/or weight-based dosing when appropriate to reduce radiation dose to as low as reasonably achievable. Dictated by Tre Gillespie MD @ 02/01/2024 8:08:10 AM Signed by:?Tre Gillespie MD @02/01/2024 8:08:10 AM (Electronic Signature)
== END 2024-01-31 12:46 | disposition home or self-care (01) ==
LOC: CT 12:45
PROVIDERS: PCP Internal Medicine; Visit Provider Internal Medicine
DX: R91.8 Other nonspecific abnormal finding of lung field (principal)
CPT/HCPCS: 71250

== ENCOUNTER 2024-07-04 13:44 | Outpatient (CLI) | payer MEDICARE, BC, SELFPAY ==
--- OUTSIDE RECORDS SUMMARY | 2024-07-06 11:18 | XMS_ITS | Clinical Summary ---
Author Organization [employer] [facility] Address [place], [place] [address] Care Team Providers Care Investor Relations Associate Name Role Phone Sohan Geiger MD Unavailable [phone] Conchis Thompson MD Primary Care Provider + Allergies Active Allergy Reactions Criticality Noted Date Comments Codeine Intolerance-Can't Take Makes her nauseated Medications Medication Sig Dispensed Refills Start Date End Date Status [place] [id number] ol 500 mg-500 mcg -1 mg-12.5 mg [...] Postmenopausal atrophic vaginitis 11/18/2010 Colon polyp 05/08/2010 Overview (01/29/2016): Colonoscopy 04/2010 polyp repeat virtual colonoscopy in 5 years 01/2016: CT colonography stable. Per Dr Nicole: ?? The stable polyp is the patient's appendiceal stump. It will stay there forever and will not change is size. See colonoscopy report [address] [facility]. Recommend CT colonograpy every 5 years. Routine general medical exam ination at a health care facility 04/08/2010 Overview (04/08/2010): dexa normal 10/2007 FH: colon cancer 10/17/2008 Overview (10/17/2008): Brother of colon cancer, she is due for colonoscopy in 2008 Migraine, unspecified, witho ut mention of intractable migraine without mention of status migrainosus 11/01/2007 Resolved Problems Problem Noted Date Diagnosed Date Resolved Date Bite from cat 04/16/2010 05/26/2011 Toe pain, right 04/08/2010 05/26/2011 Symptomatic menopausal or fe male climacteric states 11/01/2007 05/26/2011 Immunizations Name Administration Dates Next Due Pneumococcal [...] Outcome GA Total Labor Labor/2nd/3rd Weight Sex Type Anes PTL Misa A1 A5 Name Clin Term Vag Living Term Vag Living Term Vag Living Term Vag Living Last Filed Vital Signs Vital Sign Reading Time Taken Comments Blood Pressure 150/89 05/19/2023 2:02 PM CDT Pulse 71 05/19/2023 2:02 PM CDT Temperature 36.7 ??C (98.1 ??F) 05/19/2023 2:02 PM CD T Respiratory Rate 16 11/17/2021 8:29 PM SYSTEMS ANALYST Oxygen Saturation 100% 05/19/2023 2:02 PM CDT Inhaled Oxygen Concentration - - Weight 51.2 kg (112 lb 12.8 oz) 05/19/2023 2:02 PM CDT shoes on Height 162.6 cm (5' 4) 05/03/2017 2:40 PM CDT Body Mass Index 19.36 05/03/2017 2:40 PM CDT Plan of Treatment Health Maintenance Due Date Last Done Comments RSV vaccine for adults or (1 - 1-dose 60+ series) 2001 Zoster (shingles) series for age 50+ (2 of 3) 12/27/2007 11/01/2007 Depression screening for age 12+ 02/26/2018 02/26/2017, 01/27/2016, 01/27/2016 Medicare Wellness for age 65+ 02/27/2018, 01/27/2016, 07/12/2012, Additional history exists BMI (ht and wt on same day) for age 18+ 05/03/2018 05/03/2017, 04/15/2017, 03/04/2017, Additional history exists Tetanus booster 05/26/2021 05/26/2011, 12/16/2001 COVID-19 vaccine series ( season) 2024 10/21/2023, 07/17/2021, 12/14/2020, Additional history exists Influenza for age 65+ 06/18/2024 Tdap Completed 05/26/2011 Pneumococcal series for age 65+ Completed 6, 10/17/2008 DEXA/DXA scan for age 65+ Completed 01/28/2016, Procedures Procedure Name Priority Date/Time Associated Diagnosis Comments XR DXA BONE DENSITY 2 SITES AXIAL Routine 01/28/2016 11:23 AM CDT Asymptomatic menopausal state Screening for osteoporosis from Last 3 Months or Most Recently Relevant to Health Maintenance Results * (ABNORMAL) XR DXA BONE DENSITY 2 SITES AXIAL (01/28/2016 11:23 AM CDT) Anatomical Region Laterality Modality Spine, HIPS, HIPL, HIPR Other Narrative 01/29/2016 4:29 PM CDT Please see scanned document for results of this study. Maria R Steiner DO DEXA from Last 3 Months or Most Recently Relevant to Health Maintenance Care Teams Investor Relations Associate Relationship Specialty Start Date End Date Conchis Thompson MD [address] [place] [address] PCP - General Family Practice 06/15/18 Sohan Geiger MD Surgery - Urology 01/27/16
--- OUTSIDE RECORDS SUMMARY | 2024-07-06 11:18 | XMS_ITS | Data Portability ---
Author Organization [place] - [place] [facility], [facility] [place] Address [address] [facility] [address] [place] [address] Assessment No assessment recorded. Plan of Treatment Reminders Order Date Submit Date Provider Last Modified By Organization Details Last Modified Time Details Appointments None recorded. Lab urinalysi s, dipstick 2019 020 [email or web address] Not available 0 14:52:24 urinalysi s, dipstick 2019 020 FIOR Not available 0 15:25:27 urinalysi s, dipstick 2020 021 [email or web address] Not available 1 12:42:26 urinalysi s, dipstick 2021 022 [email or web address] 8 [facility], [address], [address], [place], [address], 2 16:54:38 urinalysi s, dipstick [email or web address] [place] [address], [address] , [place], [address], 3 16:28:42 Referral None recorded. Procedures None recorded. Surgeries None recorded. Imaging None recorded. Medication Orders Macrobid 100 mg capsule 2019 020 [email or web address] 8 [facility], [address], [place], [address], 2 16:45:10 Macrobid 100 mg capsule 2020 021 [email or web address] 8 [facility], [address] [place] [address], [address], 2 16:45:10 Patient TargetsNo targets recorded. Patient Instructions Encounter Date Encounter Id Patient Instructions Last Modified By Organization Details Last Modified Time 04/30/2020 [id number] need for follow-up [email or web address] Not available 04/30/2020 15:19:04 Reason for Referral None Reported. Results Created Date Observation Date Name Description Value Unit Range Abnormal Flag Note LastModifiedBy Organization Detail LastModifiedTime 04/30/2020 urina lysis , dipst ick Color-Status Yellow Not Available [facility] [address], [place], [address], 04/30/2020 14:51:26 04/30/2020 urina lysis , dipst ick Clarity-Stat us Clear Not Available [facility] [address], [place], [address], 04/30/2020 14:51:26 04/30/2020 urina lysis , dipst ick Glucose-Stat us Negati ve Not Available [facility] [address], [place], [address], 04/30/2020 14:51:26 04/30/2020 urina lysis , dipst ick Bilirubin-St atus Negati ve Not Available [facility] [address], [place], [address], 04/30/2020 14:51:26 04/30/2020 urina lysis , dipst ick Ketones-Stat us Negati ve Not Available [facility] [address], [place], [address], 04/30/2020 14:51:26 04/30/2020 urina lysis , dipst ick Sp [place]-Stat us 1.010 Not Available [facility] [address], [place], [address], 04/30/2020 14:51:26 04/30/2020 urina lysis , dipst ick pH-Status 6.0 Not Available [facility] [address], [place], [address], 04/30/2020 14:51:26 04/30/2020 urina lysis , dipst ick Urobilinogen -Status 0.2 Not Available [facility] [address], [place], [address], 04/30/2020 14:51:26 04/30/2020 urina lysis , dipst ick Nitrates-Sta tus negati ve Not Available [facility] [address], [place], [address], 04/30/2020 14:51:26 04/30/2020 urina lysis , dipst ick Blood-Status Negati ve Not Available [facility] [address], [place], [address], 04/30/2020 14:51:26 04/30/2020 urina lysis , dipst ick Leuko-Status Negati ve Not Available [facility] [address], [place], [address], 04/30/2020 14:51:26 04/30/2020 urina lysis , dipst ick Specimen Type Voided Not Available [facility] [address], [place], [address], 04/30/2020 14:51:26 04/08/20 21 04/08/2021 urina lysis , dipst ick pH-Status 7.5 Not Available [facility] [address], [place], [address], 04/08/2021 12:27:30 04/08/20 21 04/08/2021 urina lysis , dipst ick Nitrates-Sta tus negati ve Not Available [facility] [address], [place], [address], 04/08/2021 12:27:30 04/08/20 21 04/08/2021 urina lysis , dipst ick Blood-Status Negati ve Not Available [facility] [address], [place], [address], 04/08/2021 12:27:30 04/08/20 21 04/08/2021 urina lysis , dipst ick Leuko-Status Negati ve Not Available [facility] [address], [place], [address], 04/08/2021 12:27:30 01/02/20 22 01/01/2022 urina lysis , dipst ick pH-Status 7.0 Not Available [facility] [address], [place], [address], 01/01/2022 16:45:40 01/02/20 22 01/01/2022 urina lysis , dipst ick Leuko-Status Trace Not Available [facility] [address], [place], [address], 01/01/2022 16:45:40 02/03/20 23 02/02/2023 urina lysis , dipst ick Glucose-Stat us Negati ve Not Available [facility] [address], [place], [address], 02/02/2023 16:22:48 02/03/20 23 02/02/2023 urina lysis , dipst ick Bilirubin-St atus Negati ve Not Available [facility] [address], [place], [address], 02/02/2023 16:22:48 02/03/20 23 02/02/2023 urina lysis , dipst ick Ketones-Stat us Negati ve Not Available [facility] [address], [place], [address], 02/02/2023 16:22:48 02/03/20 23 02/02/2023 urina lysis , dipst ick Sp [place]-Stat us 1.015 Not Available [facility] [address], [place], [address], 02/02/2023 16:22:48 02/03/20 23 02/02/2023 urina lysis , dipst ick pH-Status 6.0 Not Available [facility] [address], [place], [address], 02/02/2023 16:22:48 02/03/20 23 02/02/2023 urina lysis , dipst ick Urobilinogen -Status 0.2 Not Available [facility] [address], [place], [address], 02/02/2023 16:22:48 02/03/20 23 02/02/2023 urina lysis , dipst ick Nitrates-Sta tus negati ve Not Available [facility] [address], [place], [address], 02/02/2023 16:22:48 02/03/20 23 02/02/2023 urina lysis , dipst ick Blood-Status Negati ve Not Available [facility] [address], [place], [address], 02/02/2023 16:22:48 02/03/20 23 02/02/2023 urina lysis , dipst ick Leuko-Status Negati ve Not Available [facility] [address], [place], [address], 02/02/2023 16:22:48 Result Notes None recorded. Problems Name Problem SNOMED Code Status Onset Date Resolution Date Notes Provider Name and Address Organization Details Recorded Time Malignant neoplasm of urinary bladder 993155448 Active 2017 C67.9 : Malignant neoplasm of bladder unspecifie d Not Available [facility] 0 02:01:41 Problem Notes None recorded. Procedures Surgical History Date Name Laterality Status Provider Name and Address Organization Details Recorded Time 023 CystoscopyFemale completed Jose Lemon MD [address] [place] [address],[address], [address], [facility] 02/07/2023 18:07:42 023 Cytology completed Barbara Garcia [facility] 02/02/2023 16:22:43 022 Pessary Insertion completed Jose Lemon MD [address] [place] [address],[address], [address], [facility] 01/01/2022 17:49:28 022 CystoscopyFemale completed Jose Lemon MD [address] [place] [address],[address], [address], [facility] 01/01/2022 17:49:14 022 Macrobid post cysto completed Yancy Paniagua [facility] 01/01/2022 16:56:07 021 CystoscopyFemale completed Jose Lemon MD [address] [place] [address],[address], [place], [address], [facility] 04/08/2021 08:59:46 021 Macrobid post cysto completed Bre Cai [facility] 04/08/2021 12:40:19 020 CystoscopyFemale completed Bre Cai [facility] 04/30/2020 14:51:22 Appendectomy completed Bre Cai [facility] 04/30/2020 14:47:57 operation on uterus completed Leo Dye [facility] 04/30/2020 14:48:24 operation on ovary completed Berna Cai [facility] 04/30/2020 14:48:35 Imaging Results None recorded. Procedure Notes None recorded. Medical Equipment None Reported. Allergies Allergen ID Allergen Name Allergen Category Reaction Reaction Severity Criticality Documentation Date Start Date Code Code System Note Provider Name and Address Organization Details Recorded Time 195676 codeine medicatio n Not available Not available Not available 04/04/20202017 2670 RxNorm Not Available [facility] 0 00:47:25 Medications Name Sig Start Date Stop Date Status Note LastModified by Organization Details LastModified Time amoxicillin 500 mg capsule TAKE ONE CAPSULE BY MOUTH THREE TIMES DAILY UNTIL GONE 01/01 completed Not Available Not Available Not Available ketoconazol e 2 % shampoo WASH TO AFFECTED AREA ON FACE 2-3 TIMES WEEKLY LATHER AND LET SIT FOR SEVERAL MINUTES BEFORE RINSING active Not Available Not Available No t Available ondansetron HCl 4 mg tablet TAKE ONE TABLET BY MOUTH THREE TIMES DAILY NEEDED 01/01 completed Not Available Not Available Not Available prednisone 20 mg tablet 04/30 completed Not Available Not Available Not Available butalbital- acetaminoph en-caffeine 50 mg-325 mg-40 mg tablet 04/08 completed Not Available Not Available Not Available hydrocortis one acetate 25 mg rectal suppository 04/30 completed Not Available Not Available Not Available Macrobid 100 mg capsule Take 1 capsule every 12 hours by oral route. 01/01 completed Not Available Not Available Not Available hydromorpho ne 2 mg tablet 04/30 completed Not Available Not Available Not Available cephalexin 500 mg capsule 04/08 completed Not Available Not Available Not Available hydrocortis one 2.5 % topical cream APPLY TO AFFECTED AREA ON FACE 1-2X DAILY FOR 2 WEEKS AT A TIME , TAKE 2 WEEK BREAK, THEN REPEAT NEEDED FOR FLARES active Not Available Not Available No t Available estradiol 0.01% (0.1 mg/gram) vaginal cream INSERT 0.5GM VAGINALLY ONCE NIGHTLY FOR 2 WEEKS, THEN USE TWICE WEEKLY active Not Available Not Available No t Available diazepam 5 mg tablet 04/30 completed Not Available Not Available Not Available loteprednol etabonate 0.5 % eye gel drops INSTILL 1 DROP THREE TIMES DAILY IN THE LEFT EYE FOR 1 WEEK active Not Available Not Available No t Available Shingrix (PF) 50 mcg/0.5 mL intramuscul ar suspension, kit 04/30 completed Not Available Not Available Not Available Vitals Date Recorded Body weight Body mass index (BMI) Body height Provider Name and Address Organization Details Last Updated DateTime 02/02/2023 19856.98 g 18.5 kg/m2 162.56 cm Barbara Ojse [facility] 02/02/2023 16:22:07 Date Recorded Body height Body mass index (BMI) Body weight Provider Name and Address Organization Details Last Updated DateTime 04/30/2020 162.56 cm 20.3 kg/m2 [address]2392.[address] [facility] 04/30/2020 14:46:30 Date Recorded Body height Body mass index (BMI) Body weight Provider Name and Address Organization Details Last Updated DateTime 04/08/2021 162.56 cm 20.3 kg/m2 91273.9 g Jose Lemon MD [address] [facility] [address], [place], [address] 04/08/2021 12:25:55 Date Recorded Body height Body mass index (BMI) Body weight Respiratory rate Provider Name and Address Organization Details Last Updated DateTime 01/01/2022 162.56 cm 20.3 kg/m2 82231.9 g 16 /min Yancy Paniagua [facility] 01/01/2022 16:44:48 Social History Question Answer Notes LastModified by Organizat ion Details LastModified Time Tobacco Smoking Status Never Smoker Bre Cai [facility] 04/30/2020 14:47:47 What Is Your Level Of Alcohol Consumption? Occasional Information not available 04/08/2021 What Is Your Level Of Caffeine Consumption? Occasional Information not available 04/08/2021 How Much Tobacco Do You Chew? None Information not available 04/08/2021 Do You Or Have You Ever Used E-cigarettes Or Vape? Never Used Electronic Cigarettes Information not available 04/08/2021 Number Of Pregnancies 4 Information not available 04/08/2021 Number Of Vaginal Deliveries 4 Information not available 04/08/2021 Recreational Drug Use No Information not available 04/08/2021 Marital Status lsrob Informatio n not available 04/08/2021 What Was The Date Of Your Most Recent Tobacco Screening? 01/01/2022 juliet Information not available 01/01/2022 Are You Sexually Active? No Information not available 04/08/2021 Do You Or Have You Ever Used Smokeless Tobacco? Never Used Smokeless Tobacco Information not available 04/08/2021 How Much Tobacco Do You Smoke? No Information not available 04/08/2021 How Many Years Have You Smoked Tobacco? 0 Information not available 04/08/2021 Sex: Unknown Functional Status None recorded. Mental Status None recorded. Family History Nothing Reported. Medical History Condition Response Other N High Blood Pressure N Kidney Stones N Lung Disease N Depression N GERD/Acid Reflux N Sexually Transmitted Infection N Cancer Y High Cholesterol N Diabetes N Bleeding Disorder N Heart Disease N Gynecological History Statement/Question Response Irregular periods N Leaking urine with intercourse N Hormone Therapy N Heavy periods N Pain with intercourse N Sexually Active? Y Obstetrics History GPAL:G 4 P 0 0 0 4 Type Value Living 4 Total 4 Immunizations Vaccine Type Date Status Provider Name and Address Organization Details Recorded Time pneumococcal polysaccharide PPV23 10/18/2015 completed Not Available [facility] 2019 00:42:34 Past Encounters Encounter ID Performer Location Encounter Start Date Encounter Closed Date Diagnosis/Indication Diagnosis SNOMED-CT Code Diagnosis ICD10 Code [id number] MD Rylee Guidry [address] [place] [address] 04/30/2020 14:36:12 05/03/2020 10:20:33 Malignant neoplasm of urinary bladder 329443345 C67.9 Cystocele 786580404 N81. 10 Nocturia 271613393 R35.1 [id number] MD Rylee Guidry [address] [place] [address] 04/08/2021 11:59:28 04/09/2021 14:02:35 History of malignant neoplasm of bladder 432043301 Z85.51 Cystocele 290329218 N81. 10 [id number] [facility] [address],[place] [address] [address] 01/01/2022 16:40:03 01/02/2022 11:42:04 Malignant neoplasm of urinary bladder 912806289 C67.9 Cystocele 013442347 N81. 10 [id number] Jose Lemon MD [facility] [address] [place] [address] 02/02/2023 15:58:38 02/08/2023 10:32:52 Malignant neoplasm of urinary bladder 660007157 C67.9 Health Concerns Section Related Observation LastModified by Organization Detai ls LastModified Time None Recorded Concern Status LastModified by Organization Details LastModified Time None Recorded Advance Directives Directive None Recorded Payers Encounter Date Sequence Insurance Name Policy Number Policy Bower Covered Member ID Bower Member ID Guarantor Name 04/30/2020 1 [place] [employer] Savi Ryderaaron [id number] Savi Kennedy Ellen 04/30/2020 2 [facility] - [employer] [id number] Savi Ryderaaron [id number] Savi Ryderaaron 04/08/2021 1 [place] [employer] Savi Ryderaaron [id number] Savi Ryderman 04/08/2021 2 [facility] [employer] [id number] Savi Ryderman 01/01/2022 1 [place] [employer] Savi Ryderman [id number] Savi Ryderaaron 01/01/2022 2 [facility] [employer] [place] [id number] Savi Kennedy man 02/02/2023 1 [place] [employer] Savi Ryderaaron [id number] 5 Savi Kennedy man 02/02/2023 2 [facility] [place] [id number] Savi Hughes Notes Date Note Type Note Provider Name and Address Organization Details Recorded Time 04/30/2020 text/html HPI Notes: 06/27/2019: 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 She had prior superficial TCC in 2014.Cysto is normal. She reports pelvic pressure on and off, tried Kegel exercises and thinks it helps. She also has nocturia (up to 4 times). On the exam, she has small grade 2 cystocele s/p hysterectomy. 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 She had prior superficial TCC in 2014.Cysto is normal. She also has small grade 2 cystocele s/p hysterectomy. 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 She had prior superficial TCC in 2014.Cysto is normal. She also has small grade 2 cystocele s/p hysterectomy. 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 She had prior superficial TCC in 2014.Cysto is normal. She also has small grade 2 cystocele s/p hysterectomy. She is followed by DR. Tong for pessary care Cysto is normal Jose Lemon MD [address] [place] [address],[address], [place], [address], [facility] 02/07/2023 18:08:20 OBGyn Episode No OBEpisode recorded.
== END 2024-07-04 13:45 | disposition home or self-care (01) ==
LOC: NFLDREF 07-06 11:15
PROVIDERS: PCP Internal Medicine; Referring Provider Internal Medicine; Visit Provider Family Medicine
DX: R30.0 Dysuria (principal); N39.0 Urinary tract infection, site not specified
CPT/HCPCS: 87086

== ENCOUNTER 2024-07-18 10:39 | Outpatient (CLI) | payer MEDICARE, BC, SELFPAY ==
--- OUTSIDE RECORDS SUMMARY | 2024-07-18 10:41 | XMS_ITS | Data Portability ---
Author Organization [place] - [place] [facility], [facility] Address [address] [facility] [address] [place] [address] Assessment No assessment recorded. Plan of Treatment Reminders Order Date Submit Date Provider Last Modified By Organization Details Last Modified Time Details Appointments None recorded. Lab urinalysi s, dipstick 2019 020 [email or web address] Not available 0 14:52:24 urinalysi s, dipstick 2019 020 FIOR Not available 0 15:25:27 urinalysi s, dipstick 2020 021 [email or web address] Not available 1 12:42:26 urinalysi s, dipstick 2021 022 [email or web address] 8 [facility], [address], [address], [place], [address], 2 16:54:38 urinalysi s, dipstick [email or web address] [place] [address], [address] , [place], [address], 3 16:28:42 Referral None recorded. Procedures None recorded. Surgeries None recorded. Imaging None recorded. Medication Orders Macrobid 100 mg capsule 2019 020 [email or web address] 8 [facility], [address] [facility], [place], [address], 2 16:45:10 Macrobid 100 mg capsule 2020 021 [email or web address] 8 [facility], [address] [place] [address], [address], 2 16:45:10 Patient TargetsNo targets recorded. Patient [...] Available [facility] [address], [place], [address], 04/30/2020 14:51:26 04/30/2020 urina lysis , dipst ick Clarity-Stat us Clear Not Available [facility] [address], [place], [address], 04/30/2020 14:51:26 04/30/2020 urina lysis , dipst ick Glucose-Stat us Negati ve Not Available [facility] [address], [place], [address], 04/30/2020 14:51:26 04/30/2020 urina lysis , dipst ick Bilirubin-St atus Negati ve Not Available [facility] [address], [place], [address], 04/30/2020 14:51:26 04/30/2020 urina lysis , dipst ick Ketones-Stat us Negati ve Not Available [facility] [address], [place], [address], 04/30/2020 14:51:26 04/30/2020 urina lysis , dipst ick Sp [place]-Stat us 1.010 Not Available [facility] [address], [place], [address], 04/30/2020 14:51:26 04/30/2020 urina lysis , dipst ick pH-Status 6.0 Not Available [facility] [address], [place], [address], 04/30/2020 14:51:26 04/30/2020 urina lysis , dipst ick Urobilinogen -Status 0.2 Not Available [facility] [address], [place], [address], 04/30/2020 14:51:26 04/30/2020 urina lysis , dipst ick Nitrates-Sta tus negati ve Not Available [facility] [address], [place], [address], 04/30/2020 14:51:26 04/30/2020 urina lysis , dipst ick Blood-Status Negati ve Not Available [facility] [address], [place], [address], 04/30/2020 14:51:26 04/30/2020 urina lysis , dipst ick Leuko-Status Negati ve Not Available [facility] [address], [place], [address], 04/30/2020 14:51:26 04/30/2020 urina lysis , dipst ick Specimen Type Voided Not Available [facility] [address], [place], [address], 04/30/2020 14:51:26 04/08/20 21 04/08/2021 urina lysis , dipst ick pH-Status 7.5 Not Available [facility] [address], [place], [address], 04/08/2021 12:27:30 04/08/20 21 04/08/2021 urina lysis , dipst ick Nitrates-Sta tus negati ve Not Available [facility] [address], [place], [address], 04/08/2021 12:27:30 04/08/20 21 04/08/2021 urina lysis , dipst ick Blood-Status Negati ve Not Available [facility] [address], [place], [address], 04/08/2021 12:27:30 04/08/20 21 04/08/2021 urina lysis , dipst ick Leuko-Status Negati ve Not Available [facility] [address], [place], [address], 04/08/2021 12:27:30 01/02/20 22 01/01/2022 urina lysis , dipst ick pH-Status 7.0 Not Available [facility] [address], [place], [address], 01/01/2022 16:45:40 01/02/20 22 01/01/2022 urina lysis , dipst ick Leuko-Status Trace Not Available [facility] [address], [place], [address], 01/01/2022 16:45:40 02/03/20 23 02/02/2023 urina lysis , dipst ick Glucose-Stat us Negati ve Not Available [facility] [address], [place], [address], 02/02/2023 16:22:48 02/03/20 23 02/02/2023 urina lysis , dipst ick Bilirubin-St atus Negati ve Not Available [facility] [address], [place], [address], 02/02/2023 16:22:48 02/03/20 23 02/02/2023 urina lysis , dipst ick Ketones-Stat us Negati ve Not Available [facility] [address], [place], [address], 02/02/2023 16:22:48 02/03/20 23 02/02/2023 urina lysis , dipst ick Sp [place]-Stat us 1.015 Not Available [facility] [address], [place], [address], 02/02/2023 16:22:48 02/03/20 23 02/02/2023 urina lysis , dipst ick pH-Status 6.0 Not Available [facility] [address], [place], [address], 02/02/2023 16:22:48 02/03/20 23 02/02/2023 urina lysis , dipst ick Urobilinogen -Status 0.2 Not Available [facility] [address], [place], [address], 02/02/2023 16:22:48 02/03/20 23 02/02/2023 urina lysis , dipst ick Nitrates-Sta tus negati ve Not Available [facility] [address], [place], [address], 02/02/2023 16:22:48 02/03/20 23 02/02/2023 urina lysis , dipst ick Blood-Status Negati ve Not Available [facility] [address], [place], [address], 02/02/2023 16:22:48 02/03/20 23 02/02/2023 urina lysis , dipst ick Leuko-Status Negati ve Not Available [facility] [address], [place], [address], 02/02/2023 16:22:48 Result Notes None recorded. Problems Name Problem SNOMED Code Status Onset Date Resolution Date Notes Provider Name and Address Organization Details Recorded Time Malignant neoplasm of urinary bladder 983873157 Active 2017 C67.9 : Malignant neoplasm of bladder unspecifie d Not Available [facility] 0 02:01:41 Problem Notes None recorded. Procedures Surgical History Date Name Laterality Status Provider Name and Address Organization Details Recorded Time 023 CystoscopyFemale completed Jose Lemon MD [address] [place] [address],[address], [place], [address], [facility] 02/07/2023 18:07:42 023 Cytology completed Barbara Garcia [facility] 02/02/2023 16:22:43 022 Pessary Insertion completed Jose Lemon MD [address] [place] [address],[address], [place], [address], [facility] 01/01/2022 17:49:28 022 CystoscopyFemale completed Jose Lemon MD [address] [place] [address],[address], [place], [address], [facility] 01/01/2022 17:49:14 022 Macrobid post cysto completed Yancy Paniagua [facility] 01/01/2022 16:56:07 021 CystoscopyFemale completed Jose Lemon MD [address] [place] [address],[address], [place], [address], [facility] 04/08/2021 08:59:46 021 Macrobid post cysto completed Bre Cai [facility] 04/08/2021 12:40:19 020 CystoscopyFemale completed Bre Cai [facility] 04/30/2020 14:51:22 Appendectomy completed Bre Cai [facility] 04/30/2020 14:47:57 operation on uterus completed Leo Dye [facility] 04/30/2020 14:48:24 operation on ovary completed Berna Cai [facility] 04/30/2020 14:48:35 Imaging Results None recorded. Procedure Notes None recorded. Medical Equipment None Reported. Allergies Allergen ID Allergen Name Allergen Category Reaction Reaction Severity Criticality Documentation Date Start Date Code Code System Note Provider Name and Address Organization Details Recorded Time 216080 codeine medicatio n Not available Not available Not available 04/04/20202017 2670 RxNorm Not Available [facility] 0 00:47:25 Medications Name Sig Start Date [...] Address Organization Details Last Updated DateTime 02/02/2023 82879.98 g 18.5 kg/m2 162.56 cm Barbara Jose [facility] 02/02/2023 16:22:07 Date Recorded Body height Body mass index (BMI) Body weight Provider Name and Address Organization Details Last Updated DateTime 04/30/2020 162.56 cm 20.3 kg/m2 77311.9 g Bre Cai [facility] 04/30/2020 14:46:30 Date Recorded Body height Body mass index (BMI) Body weight Provider Name and Address Organization Details Last Updated DateTime 04/08/2021 162.56 cm 20.3 kg/m2 49530.9 g Jose Lemon MD [address] [facility] [address], [place], [address] 04/08/2021 12:25:55 Date Recorded Body height Body mass index (BMI) Body weight Respiratory rate Provider Name and Address Organization Details Last Updated DateTime 01/01/2022 162.56 cm 20.3 kg/m2 08278.9 g 16 /min Yancy Paniagua [facility] 01/01/2022 16:44:48 Social History Question Answer Notes LastModified by Organizat ion Details LastModified Time Tobacco Smoking Status Never Smoker Bre Cai [facility] 04/30/2020 14:47:47 What Is Your Level Of [...] Disease N Depression N GERD/Acid Reflux N Diabetes N Sexually Transmitted Infection N Bleeding Disorder N Cancer Y High Cholesterol N Heart Disease N Gynecological History Statement/Question [...] pneumococcal polysaccharide PPV23 10/18/2015 completed Not Available [facility] 2019 00:42:34 Past Encounters Encounter ID Performer Location Encounter Start Date Encounter Closed Date Diagnosis/Indication Diagnosis SNOMED-CT Code Diagnosis ICD10 Code [id number] MD Rylee Guidry [address] [place] [address] 04/30/2020 14:36:12 05/03/2020 10:20:33 Malignant neoplasm of urinary bladder 444058178 C67.9 Cystocele 753527970 N81. 10 Nocturia 157135795 R35.1 [id number] MD Rylee Guidry [address] [place] [address] 04/08/2021 11:59:28 04/09/2021 14:02:35 History of malignant neoplasm of bladder 893295498 Z85.51 Cystocele 718427764 N81. 10 [id number] [facility] [address],[place] [address] [address] 01/01/2022 16:40:03 01/02/2022 11:42:04 Malignant neoplasm of urinary bladder 918612996 C67.9 Cystocele 133652511 N81. 10 [id number] Jose Lemon MD [place] [address] [place] [address] 02/02/2023 15:58:38 02/08/2023 10:32:52 Malignant neoplasm of urinary bladder 760944629 C67.9 Health Concerns Section Related Observation LastModified by Organization Detai ls LastModified Time None Recorded Concern Status LastModified by Organization Details LastModified Time None Recorded Advance Directives Directive None Recorded Payers Encounter Date Sequence Insurance Name Policy Number Policy Bower Covered Member ID Bower Member ID Guarantor Name 04/30/2020 1 [place] [employer] Savi Ryderaaron [id number] aSvi Kennedy Ellen 04/30/2020 2 [facility] [employer] [id number] Savi Ryderaaron [id number] Savi Ryderaaron 04/08/2021 1 [place] [employer] Savi Ryderaaron [id number] Savi Ryderman 04/08/2021 2 [facility] [place] [id number] [id number] Savi Ryderman 01/01/2022 1 [place] [employer] Savi Ryderman [id number] Savi Ryderaaron 01/01/2022 2 [facility] [employer] [place] [address] [employer] [id number] Savi Kennedy man 02/02/2023 1 [place] [employer] Savi Ryderaaron [id number] 5 Savi Kennedy man 02/02/2023 2 [facility] [employer] [place] 104 Ruffalo[employer]ODY [id number] Savi Hughes Notes Date Note Type Note [...] hysterectomy. 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 She had prior superficial TCC in 2014.Cysto is normal. She also has small grade 2 cystocele s/p hysterectomy. 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 She had prior superficial TCC in 2014.Cysto is normal. She also has small grade 2 cystocele s/p hysterectomy. I placed size 3 pessary today Jose Lemon MD [address] [place] [address],[address], [place], [address], [facility] 01/01/2022 17:50:00 02/02/2023 text/html HPI Notes: 82 [...] care Cysto is normal Jose Lemon MD [address] [place] [address],[address], [place], [address], [facility] 02/07/2023 18:08:20 OBGyn Episode No OBEpisode recorded.
== END 2024-07-18 10:40 | disposition home or self-care (01) ==
LOC: NFLDREF 10:39
PROVIDERS: PCP Internal Medicine; Visit Provider Internal Medicine
DX: Z01.818 Encounter for other preprocedural examination (principal); I10 Essential (primary) hypertension
CPT/HCPCS: 80053

== ENCOUNTER 2024-08-09 08:37 | Day surgery (SDC) | payer MEDICARE, BC, SELFPAY ==
[2024-08-09] VITALS (21 sets, daily range): BP systolic 120–170; BP diastolic 80–111; PULSE 65–80; RESP 12–20; TEMP 36.1–37.1; O2SAT 95–99; BMI 19.0
--- OUTSIDE RECORDS SUMMARY | 2024-08-09 08:42 | XMS_ITS | Clinical Summary ---
Author Organization [employer] [facility] Address [place], [place] [address] Care Team Providers Care Tool Trouble Shooter Name Role Phone Sohan Geiger MD Unavailable [phone] Conchis Thompson MD Primary Care Provider + Allergies Active Allergy Reactions Criticality Noted Date Comments Codeine Intolerance-Can't Take Makes her nauseated Medications Medication Sig Dispensed Refills Start Date End Date Status [place] 1-J58-[id number]-J1-Daezjdtus ol 500 mg-500 mcg -1 mg-12.5 mg [...] is size. See colonoscopy report 2009 at [facility]. Recommend CT colonograpy every 5 years. 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 Saturation 100% 05/19/2023 2:02 PM CDT Inhaled Oxygen Concentration - - Weight 51.2 kg (112 lb 12.8 oz) 05/19/2023 2:02 PM CDT shoes on Height 162.6 cm (5' 4) 05/03/2017 2:40 PM CDT Body Mass Index 19.36 05/03/2017 2:40 PM CDT Plan of Treatment Health Maintenance Due Date Last Done Comments Zoster (shingles) series for age 50+ (2 of 3) 12/27/2007 11/01/2007 RSV vaccine for adults or (1 - 1-dose 75+ series) 2016 Depression screening for age 12+ 02/26/2018 02/26/2017, [...] Recently Relevant to Health Maintenance Care Teams Tool Trouble Shooter Relationship Specialty Start Date End Date Conchis Thompson MD [address] [place] [address] PCP - General Family Practice 06/15/18 Sohan Geiger MD Surgery - Urology 01/27/16
[2024-08-09] MEDS: SODIUM CHLORIDE 0.9 % (FLUSH) 10 ML SYRINGE IVF (09:30)
[2024-08-09] MEDS: ACETAMINOPHEN 500 MG TABLET 1000 MG PO (09:40)
[2024-08-09] MEDS: OXYCODONE (CR) 10 MG TAB.ER.12H PO (09:40)
[2024-08-09] MEDS: LACTATED RINGERS 1000 ML 1,000 ML 100 ML IV (09:44)
[2024-08-09] MEDS: MIDAZOLAM HCL 1 MG/ML inj IVP (11:45)
[2024-08-09] MEDS: fentaNYL 100 MCG/2 ML inj IVP (11:45)
--- NOTE | 2024-08-09 11:56 | SUR.PREOP ---
TIME?OUT:?1040, left knee PT/RN/MDA?VERIFICATION?OF?SURGICAL?SITE,?PROCEDURE,?AND?CONSENT OBTAINED?PRIOR?TO?INVASIVE?PROCEDURE.
--- NOTE | 2024-08-09 12:00 | SUR.PREOP ---
TIME?OUT:?error in previous note. time was 1140, not 1040 as charted prior PT/RN/MDA?VERIFICATION?OF?SURGICAL?SITE,?PROCEDURE,?AND?CONSENT OBTAINED?PRIOR?TO?INVASIVE?PROCEDURE.
--- NOTE | 2024-08-09 12:25 | W.ANESCHARGE ---
Anesthesia Charges Start Date/Time Anesthesia Start Date: 08/09/24 Anesthesia Start Time: 11:55 Stop Date/Time Anesthesia Stop Date: 08/09/24 Anesthesia Stop Time: 16:08 Summary Extremes of Age - Over 70 or under 1: MDA
--- NOTE | 2024-08-09 12:25 | W.PM.NB ---
Nerve Block Nerve Block Time Seen by Provider: 11:45 Date Seen: 08/09/24 Type of block requested by surgeon for post-operative analgesia: adductor canal Side: left Time out performed: Yes Verification of patient name: Yes Verification of date of : Yes Site marking: site marked Name of person performing procedure: Jamaal Continuous monitoring Was continuous monitoring of O2 sat, B/P, security monitor, recorded every 15 minutes?: Yes Procedure Checklist: sterile prep, needles and gloves Ultrasound guided. Images saved: Yes Medications given in 5ml increments after negative aspiration: Marcaine %: 0.25 mL: 15 Needle gauge: 20 Precedex (mcg): 25 Patient tolerated procedure well: Yes Block Charges Block Charge (with Pro Fee): Femoral Nerve Use of Ultrasound Machine for Block: Yes- US Guidance/pain block
--- NOTE | 2024-08-09 12:26 | W.PM.NB ---
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 Images saved: Yes Medications given in 5ml increments after negative aspiration: Marcaine %: 0.25 mL: 9 Needle gauge: 25 Patient tolerated procedure well: Yes Block Charges Block Charge (with Pro Fee): Genicular Nerve Block
[2024-08-09] MEDS: CEFAZOLIN 2 GM in 0.9 % SODIUM CHLORIDE Mini-bag 100 ML IVPB (12:27)
[2024-08-09] MEDS: TRANEXAMIC ACID 100 MG/ML INJ 1000 MG IV (12:32)
--- NOTE | 2024-08-09 13:50 | PM.ORPRC ---
Procedure Note Date of procedure: 08/09/24 Procedure: PREOPERATIVE DIAGNOSIS: 1. Left knee osteoarthritis, primary, severe POSTOPERATIVE DIAGNOSIS: 1. Left knee osteoarthritis, primary, severe PROCEDURE: 1. Left total knee arthroplasty - subvastus SURGEON: Buster Way MD. ICING MACHINE OPERATOR: Rustam Cortes PA-C - Of note, a skilled bilingual medical assistant was critical for this case to aid in patient positioning, tissue retraction, limb manipulation/positioning, and closure. ANESTHESIA: Spinal anesthetic EBL: 50ml IMPLANTS: DePuy J&J all cemented TKA - Attune PS femur size 6 regular, size 5 tibia, 5 mm poly spacer, 38 mm patella TOURNIQUET: 90 min at 300 torr COMPLICATIONS: None evident INDICATIONS: The patient is a pleasant 84-year-old female who has experienced severe left knee pain and difficulty bearing weight. Workup included x-rays which revealed severe osteoarthrosis in the knee. Given the deformity, the dysfunction, and the pain, as well as the failure of nonoperative management, recommendation was made for surgery. FINDINGS: Full-thickness chondral loss diffusely throughout the medial and patellofemoral compartment. To lesser degree lateral compartment. Degenerative meniscus pathology both compartments. Large effusion upon entering the joint. Large osteophytes throughout the knee. DESCRIPTION OF PROCEDURE: Following a thorough discussion of risks, benefits, and alternatives consent was obtained and the left knee was marked. The patient was brought to the operating room and placed supine on the operating table. Induction of anesthesia was undertaken. 1 g IV Ancef and 1 g tranexamic acid was administered within 1 hr of incision preoperatively. Proper time-out was performed identifying proper patient, site, procedure. The operative extremity was prepped and draped in the appropriate sterile fashion using ChloraPrep after the patient was positioned supine with all bony prominences well padded. A longitudinal, anterior, midline skin incision was made starting approximately 3cm proximal to the superior pole of the patella and advanced distal to the tibial tubercle. A subvastus approach was utilized. A medial subperiosteal sleeve was created with knife, hernandez elevator and curved osteotome. The retropatellar fatpad was resected and the synovium in the suprapatellar pouch excised to visualize the anterior femoral cortex. Femoral preparation was performed via an intramedullary guide. Step drill allowed access into the femoral canal. The distal cutting guide was placed with 5? of valgus and 12 mm cut on the distal femur due to a significant flexion contracture. Femur was sized using a anterior referencing guide in 3? of external rotation. This found have a best fit with the sizing noted above. The 4 in 1 cutting block was then placed, and the distal femur shaped accordingly. The box cut was then created and the trial implant inserted to confirm appropriate fit. We turned our attention to the proximal tibia. Extramedullary guide was utilized for cutting with the goal of being 90 degree cut from the mechanical axis of the tibia in the varus/valgus plane utilizing tibial crest as the primary alignment. Initially a 2 mm resection was performed from the medial tibial plateau. Ultimately, balancing was achieved in both flexion and extension in both varus and valgus. The knee was able to achieve full extension as well comfortably. The patella was initially measured and found have a thickness of 24 mm. It was resected back to approximately 13.5 mm. It was sized to be a best fit with as noted above. This was drilled, trial placed. All trials were placed and found to have an excellent stability and balance. At this stage, trial implants were removed, the knee was thoroughly irrigated with normal saline, and the cement was mixed. After irrigation, the knee was thoroughly dried, and cement placed, with the real tibial and femoral implants placed along with the patella. Trial poly spacer was placed and confirmed to have excellent range of motion and full extension, and the real poly spacer opened and inserted. All extra cement was removed, and a 3 min Betadine soak performed. Finally, a final irrigation round with normal saline was performed. Closure performed with 0 PDS and #0 Stratafix for the quad tendon/retinaculum. 2-0 Vicryl/Stratafix for the subcutaneous and 4-0 Monocryl for subcuticular closure. Dressings were applied and the patient was awoken from anesthesia after the tourniquet deflated and transferred the PACU in stable condition. A skilled bilingual medical assistant was critical for this case to aid in patient positioning, tissue retraction, bone exposure, limb manipulation/positioning, patient safety, and closure. PLAN: 1. Weight bear as tolerated operative extremity. 2. 23 hr perioperative antibiotics. 3. Ice. 4. PT/OT consults for ambulation assistance/mobility education. 5. Social work consult for discharge planning. 6. DVT prophylaxis with at SCDs and aspirin twice daily.
--- NOTE | 2024-08-09 13:53 | CRLHL7_ITS ---
For Patients: As a result of the Cures Act, medical imaging exams and procedure reports are released immediately into your electronic medical record. You may view this report before your referring provider. If you have questions, please contact your health care provider. Indication: Postop Technique: Two views left knee Findings/Impression: Hardware from a left total knee arthroplasty is in satisfactory position. Bone alignment is normal. No sign of acute fracture. Postop changes are within normal limits. Dictated by Michael Montez MD @ 08/11/2024 12:34:05 PM (Electronically Signed)
--- NOTE | 2024-08-09 14:50 | P.IMCN_ITS ---
Date of Consult Consult date: 08/09/24 Requesting Physician: Orthopedics Primary Care Provider: Elizabeth Hameed MD Consult Narrative Narrative: HOSPITALIST CONSULT PROCEDURE: Left total knee arthroplasty - subvastus SURGEON: Buster Way MD. ANESTHESIA: Spinal anesthetic EBL: 50ml TOURNIQUET: 90 min at 300 torr COMPLICATIONS: None evident The hospital medicine team was asked by the orthopedic surgery team to manage the patient's known severe valvular heart disease, hypertension. There have been no perioperative complications. I have updated and reviewed the active medical problems, past medical history, past surgical history, social history, allergies and medications in our electronic EMR. This includes a cross reference to care everywhere in [facility] and with [facility] databases. PHYSICAL EXAM: CODE STATUS: FULL CODE CONSTITUTIONAL: Conversive, good historian. A/O. Knows setting and context. VITAL SIGNS: see record. HEENT: Normocephalic, atraumatic. PERRL, EOMI, conjunctivae pink, no scleral icterus. Ears and nose externally normal. Pharynx normal. NECK: No JVD. No carotid bruit, no thyromegaly, no adenopathy. CHEST: Clear to auscultation bilaterally HEART: S1 and S2 normal. prominent pansystolic murmur, not harsh. no clicks. ABDOMEN: Flat, soft, nontender. Normal bowel sounds. Moderately obese. EXTREMITIES: No edema. MUSCULOSKELETAL: Left knee, surgical dressing intact. No bleeding or obvious clot. NEURO: Cranial nerves intact. Mentation normal. Normal affect. SKIN: No rashes, petechiae, concerning changes PSYCHIATRIC: Mentation normal. INVESTIGATIONS: EMR Reviewed; Pre-OP Reviewed DISPOSITION: DVT: Agree with Ortho team decision, asp 81mg bid. GI: PO intake [facility] Medical History (Updated 08/09/24 @ 15:08 by Christine Roberto MD) Adenomatous polyp of colon (2009) ?D12.6 - Benign neoplasm of colon, unspecified (ICD-10) Chronic low back pain ?M54.50 - Low back pain, unspecified (ICD-10) ?G89.29 - Other chronic pain (ICD-10) Migraine aura without headache ?G43.109 - Migraine with aura, not intractable, without status migrainosus (ICD-10) Osteopenia ?M85.80 - Other specified disorders of bone density and structure, unspecified site (ICD-10) Cystocele Health care directive on file (11/19/21) ?Z78.9 - Other specified health status (ICD-10) History of bladder cancer ?Z85.51 - Personal history of malignant neoplasm of bladder (ICD-10) Surgical History (Updated 08/09/24 @ 15:02 by Christine Roberto MD) Status post left knee replacement ?Z96.652 - Presence of left artificial knee joint (ICD-10) 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) ?Z96.651 - Presence of right artificial knee joint (ICD-10) H/O foot surgery (10/23/08) ?Z98.890 - Other specified postprocedural states (ICD-10) H/O cystoscopy (12/10/14) ?Z98.890 - Other specified postprocedural states (ICD-10) History of cataract surgery ?Z98.49 - Cataract extraction status, unspecified eye (ICD-10) History of total hysterectomy with removal of both tubes and ovaries (1995) ?Z90.710 - Acquired absence of both cervix and uterus (ICD-10) ?Z90.722 - Acquired absence of ovaries, bilateral (ICD-10) ?Z90.79 - Acquired absence of other genital organ(s) (ICD-10) History of laparotomy (1999) ?Z98.890 - Other specified postprocedural states (ICD-10) History of appendectomy (1997) ?Z90.49 - Acquired absence of other specified parts of digestive tract (ICD- 10) Family History Brother Colon cancer Social History (Updated 11/22/23 @ 15:46 by Tamara Fierro MD) Narrative: Nonsmoker. Alcohol use once a year on Patricia. Wishes to be a full code. What is your current living situation?: I presently have a place to live Problems where you live: no known problems In the past 12 months, utilities in danger of being shut off: no In past 12 months, lack of transportation kept you from medical appts, meetings, work, or getting things needed for daily living: no In the past 12 mos, have been you worried that your food would run out before you had money to buy more?: never true In the past 12 mos, the food you bought just didn't last and you didn't have money to buy more?: never true Highest level of school completed/degree received: high school graduate Smoking Status: Never smoker Do you use any of these nicotine containing products: None Second hand tobacco smoke exposure: No How often do you have a drink containing alcohol: monthly or less Alcohol type: wine How many standard drinks containing alcohol do you have on a typical day: 1 or 2 How often do you have six or more drinks on one occasion: Never AUDIT-C Alcohol total score: 1 Non-prescribed substance use: marijuana (any form) Non-prescribed substance use details: CBD oil Caffeine: Yes How often does anyone, including family, friends and others, physically hurt you : never How often does anyone, including family, friends and others, insult or talk down to you: never How often does anyone, including family, friends and others, threaten you with harm: never How often does anyone, including family, friends and others, scream or curse at you: never Little interest or pleasure in doing things: not at all Feeling down, depressed, or hopeless: several days service: No Meds Home Medications and Allergies Home Medications ?Medication ?Instructions ?Recorded ?Confirmed ?Type calcium carbonate 500 mg PO DAILY 09/29/22 08/09/24 History fish oil-dha-epa See Rx Instructions PO DAILY 09/29/22 08/09/24 History glucosamine sulfate 500 mg capsule 500 mg PO DAILY 09/29/22 08/09/24 History vitamin B complex 1 tab PO DAILY 09/29/22 08/09/24 History metoprolol succinate 25 mg 25 mg PO DAILY 08/09/24 08/09/24 History tablet,extended release 24 hr (Toprol XL) Allergies Allergy/AdvReac Type Severity Reaction Status Date / Time No Known Allergies Allergy Verified 08/09/24 08:54 Exam Const: Vital Signs, click to edit/add: Vital Signs - 24 hr 08/09/24 09:20 08/09/24 11:45 08/09/24 11:50 Temperature 98.7 F Pulse Rate 72 70 68 Respiratory Rate 16 20 20 Blood Pressure 170/111 H 168/111 H 154/96 H Pulse Oximetry 99 98 99 Oxygen Delivery Me thod Room Air Nasal Cannula Room Air Oxygen Flow Rate 2 Assessment and Plan Assessment and plan (1) Status post left knee replacement: Problem comment: 08/09/2024, Dr. Wynne Status: Acute Assessment and Plan: Hospital medicine team is happy to follow the patient through to discharge. I agree with aspirin b.i.d. for DVT prophylaxis. We expect a routine postoperative course. (2) Essential hypertension: Problem comment: Dr. Escobedo started metoprolol 12/11 Status: Acute Assessment and Plan: -dosing of home metoprolol based on postop vitals. (3) Bilateral hearing loss: Status: Chronic (4) Severe tricuspid regurgitation: Problem comment: Moderate to severe TR noted by exercise stress echo here 11/10 (echo negative for ischemia), seen by [facility] cardiology 01/08 with plans for echo/cardiology follow-up yearly Status: Chronic Assessment and Plan: Stable chronic disease. Will follow.
--- NOTE | 2024-08-09 16:11 | P.ANES_ITS ---
Anesthesia Charges Start Date/Time Anesthesia Start Date: 08/09/24 Anesthesia Start Time: 11:55 Stop Date/Time Anesthesia Stop Date: 08/09/24 Anesthesia Stop Time: 16:08 Summary Extremes of Age - Over 70 or under 1: CERTIFIED HAND THERAPIST
--- NOTE | 2024-08-09 16:46 | SUR.PHASEI ---
patient met discharge criteria per anesthesia
[2024-08-09] MEDS: CEFAZOLIN 1 GM in 0.9 % SODIUM CHLORIDE Mini-bag 100 ML IVPB (17:36)
[2024-08-09] MEDS: LACTATED RINGERS 1000 ML 1,000 ML 75 ML IV (17:37)
[2024-08-09] MEDS: HYDROmorphone 0.5 mg/0.5 ml inj IVP ×2 (17:42→19:59)
[2024-08-09] MEDS: ONDANSETRON 2 MG/ML inj 4 MG IVP (18:47)
[2024-08-09] MEDS: SENNOSIDES 1 TAB TABLET 2 TAB PO (21:15)
[2024-08-09] MEDS: ASPIRIN 81 MG TABLET EC PO (21:15)
[2024-08-09] MEDS: OXYCODONE 5 MG TABLET PO (21:21)
[2024-08-10] MEDS: ACETAMINOPHEN 500 MG TABLET 1000 MG PO ×2 (00:10→06:21)
[2024-08-10] MEDS: OXYCODONE 5 MG TABLET PO ×3 (00:10→06:21)
[2024-08-10] MEDS: CEFAZOLIN 1 GM in 0.9 % SODIUM CHLORIDE Mini-bag 100 ML IVPB ×2 (02:05→10:22)
[2024-08-10 02:10] VITALS: BP 127/84; PULSE 81; RESP 16; TEMP 36.9; O2SAT 97
[2024-08-10 06:30] LABS: Basophils Absolute Auto 0.01 K/uL (0.00-0.30); Basophils Percent Auto 0.1 % (0.0-3.0); Hematocrit 31.8 % (33.0-51.0); Hemoglobin* 10.1 gm/dL (12.0-16.0); Immature Granulocytes Abs Auto 0.01 K/uL (0.00-0.30); Immature Granulocytes Pct Auto 0.1 %; Lymphocytes Percent Auto 19.4 % (20-44); Mean Corpuscular HGB Conc 32 gm/dL (32-36); Mean Corpuscular Hemoglobin 25 pg (26-34); Mean Corpuscular Volume 80 fL (80-100); Monocytes Percent Auto 10.9 % (0.0-11.0); Neutrophils Absolute Auto 4.66 K/uL (1.7-7.0); Neutrophils Percent Auto 69.5 % (42.0-72.0); Platelet Count* 189 K/uL (140-440); RDW Coefficient of Variation % 14.5 % (11.5-15.5); Red Blood Count 3.98 m/uL (4.00-5.20); White Blood Count* 6.71 K/uL (4.50-11.00)
[2024-08-10 06:33] LABS: Slide Review Reflex No
[2024-08-10 06:45] LABS: Potassium* 3.6 mmol/L (3.6-5.1); Sodium* 130 mmol/L (135-149)
[2024-08-10 06:48] LABS: Blood Urea Nitrogen* 12 mg/dL (7-30); Creatinine* 0.5 mg/dL (0.5-1.5); Est. Creatinine Clearance* 33.88; Estimated Glomerular Filt Rate 93 ml/min
[2024-08-10 07:47] VITALS: BP 120/79; PULSE 79; RESP 16; TEMP 36.8; O2SAT 100
--- NOTE | 2024-08-10 07:48 | PC.NURSE ---
Pt alert and oriented x3. Afebrile. Pt reports 6-7/10 pain in left knee, pain managed with PRN medications. Pt's left knee dressing is CDI with TERA wrap around leg. Pt is up SBA with walker and gait belt, voiding, and tolerating a regular diet.
[2024-08-10] MEDS: ASPIRIN 81 MG TABLET EC PO (08:24)
[2024-08-10] MEDS: SENNOSIDES 1 TAB TABLET 2 TAB PO (08:24)
[2024-08-10] MEDS: HYDROCODONE-ACETAMIN 5-325 MG 1 TAB PO (09:31)
--- NOTE | 2024-08-10 11:54 | PM.ORPN ---
Subjective Subjective Date Seen: 08/10/24 Principal diagnosis: Status postop day 1 left total knee arthroplasty Interval history: Patient reports doing okay. States that this knee hurts more than her last knee. No acute events over night. Reports knee stiffness especially with the Waqar bandage in place. Pain managed with scheduled and PRN medications, ice. DVT prophylaxis: 81 mg aspirin by mouth twice daily, SCDs, walking. Denies fevers, chills, aches, N/V, CP, SOB/MICHAEL, or lightheadedness. Her daughter is present with her. Ortho Exam Narrative Exam Narrative: -Patient appears comfortable; no apparent acute distress -Alert and oriented times 3 -Waqar bandage in place -Operative knee and distal thigh moderately swollen delete; soft tissues supple, not tense; ecchymosis noted medial knee. Small skin puckering medial knee. +2 knee effusion. No erythematous streaking Warmth appropriate -Surgical dressing clean, dry, intact; no drainage -Bilateral calfs soft; no significant swelling, edema, tenderness, erythema, discoloration, warmth, or palpable cords -2+ DP/PT pulses, intact dermatomes and myotomes distally (5/5 strength) Const Vital Signs, click to edit/add: Vital Signs - 24 hr 08/09/24 16:05 08/09/24 16:10 08/09/24 16:15 Temperature 97.3 F L 97.3 F L 97.3 F L Pulse Rate 74 73 69 Pulse Rate [Left Pulse Oximeter] Respiratory Rate 12 12 20 Blood Pressure 142/105 H 149/100 H 153/102 H Blood Pressure [Right Arm] Pulse Oximetry 99 98 96 Oxygen Delivery Method Room Air Room Air Room Air 08/09/24 16:20 08/09/24 16:25 08/09/24 16:30 Temperature 97.3 F L 97.3 F L 97.3 F L Pulse Rate 68 66 67 Pulse Rate [Left Pulse Oximeter] Respiratory Rate 12 16 20 Blood Pressure 148/94 H 148/92 H 146/89 H Blood Pressure [Right Arm] Pulse Oximetry 97 99 99 Oxygen Delivery Method Room Air Room Air Room Air 08/09/24 16:35 08/09/24 16:43 08/09/24 16:45 Temperature 97.4 F L 96.9 F L Pulse Rate 65 70 68 Pulse Rate [Left Pulse Oximeter] Respiratory Rate 12 16 16 Blood Pressure 139/95 H 137/84 135/80 Blood Pressure [Right Arm] Pulse Oximetry 98 96 98 Oxygen Delivery Method Room Air Room Air Room Air 08/09/24 17:00 08/09/24 17:15 08/09/24 17:30 Temperature 97.0 F L 97.2 F L Pulse Rate 71 73 75 Pulse Rate [Left Pulse Oximeter] Respiratory Rate 16 16 16 Blood Pressure 120/80 124/88 126/88 Blood Pressure [Right Arm] Pulse Oximetry 97 98 98 Oxygen Delivery Method Room Air Room Air Room Air 08/09/24 17:45 08/09/24 18:00 08/09/24 18:30 Temperature 97.2 F L Pulse Rate 74 72 74 Pulse Rate [Left Pulse Oximeter] Respiratory Rate 18 16 18 Blood Pressure 141/90 H 134/89 147/93 H Blood Pressure [Right Arm] Pulse Oximetry 97 98 98 Oxygen Delivery Method Room Air Room Air Room Air 08/09/24 19:30 08/09/24 20:30 08/10/24 02:10 Temperature 97.5 F L 97.8 F 98.4 F Pulse Rate 75 80 Pulse Rate [Left Pulse Oximeter] 81 Respiratory Rate 16 16 16 Blood Pressure 136/91 H 125/96 H Blood Pressure [Right Arm] 127/84 Pulse Oximetry 95 97 Oxygen Delivery Method Room Air Room Air 08/10/24 07:47 08/10/24 07:47 08/10/24 07:47 Temperature 98.3 F Pulse Rate Pulse Rate [Left Pulse Oximeter] 79 Respiratory Rate 16 Blood Pressure Blood Pressure [Right Arm] 120/79 Pulse Oximetry 100 100 100 Oxygen Delivery Method Room Air Room Air Assessment and Plan Assessment and plan (1) Status post left knee replacement: Problem details: 08/09/2024, Dr. Wynne Status: Acute (2) Essential hypertension: Problem details: Dr. Escobedo started metoprolol 12/11 Status: Acute (3) Bilateral hearing loss: Status: Chronic (4) Severe tricuspid regurgitation: Problem details: Moderate to severe TR noted by exercise stress echo here 11/10 (echo negative for ischemia), seen by [facility] cardiology 01/08 with plans for echo/cardiology follow-up yearly Status: Chronic Plan - Complete 23 hour perioperative antibiotics. - PT/OT consult for education and assistance. - Social work consult for discharge planning - Prescribed analgesics as needed - she will try Caneadea this late morning to see if this helps better with pain. She states that oxycodone does not classically help with pain. Her med surg nurse, patient decided on Caneadea for discharge. - DVT prophylaxis: 81 mg aspirin by mouth twice daily, walking, and SCDs - Anticipation is for discharge to home with family/friends today 08/10/2024 if the patient remains medically stable, pain is controlled, and they are safe with mobilization.
== END 2024-08-10 12:51 | disposition home or self-care (01) ==
LOC: OR 08:40 → MEDSURG 08:42
PROVIDERS: PCP Internal Medicine; Visit Provider Orthopaedic Surgery Sports Medicine
PROC: (CPT 27447; principal; 2024-08-09 11:00)
DX: M17.12 Unilateral primary osteoarthritis, left knee (principal); G89.18 Other acute postprocedural pain; I10 Essential (primary) hypertension; I07.1 Rheumatic tricuspid insufficiency; H91.8X3 Other specified hearing loss, bilateral
CPT/HCPCS: 27447; 01402; 36415; 64447; 64454; 73560; 76942; 82565; 84132; 84295; 84520; 85025; 97110; 97116; 97161; 97165; 99100; A9270; C1776; J0330; J0665; J0690; J1171; J2250; J2405; J2704; J3010; J3490; J7120

== ENCOUNTER 2024-09-18 13:30 | Outpatient (CLI) | payer MEDICARE, BC, SELFPAY ==
--- OUTSIDE RECORDS SUMMARY | 2024-09-18 13:38 | XMS_ITS | Clinical Summary ---
Author Organization [employer] [facility] Address [place], [place] [address] Care Team Providers Care Vamp Wetter Name Role Phone Sohan Geiger MD Unavailable [phone] Conchis Thompson MD Primary Care Provider + Allergies Active Allergy Reactions Criticality Noted Date Comments Codeine Intolerance-Can't Take Makes her nauseated Medications Medication Sig Dispensed Refills Start Date End Date Status [place] [id number] ol 500 mg-500 mcg -1 mg-12.5 mg [...] 01/2016: CT colonography stable. Per Dr Nicole: The stable polyp is the patient's appendiceal stump. It will stay there forever and will not change is size. See colonoscopy report 2009 at [facility]. Recommend CT colonograpy every 5 years. Routine [...] 71 05/19/2023 2:02 PM CDT Temperature 36.7 C (98.1 F) 05/19/2023 2:02 PM CDT Respiratory Rate 16 11/17/2021 8:29 PM HEAD COUNSELOR Oxygen Saturation 100% 05/19/2023 2:02 PM CDT [...] Recently Relevant to Health Maintenance Care Teams Vamp Wetter Relationship Specialty Start Date End Date Conchis Thompson MD [address] [place] [address] PCP - General Family Practice 06/15/18 Sohan Geiger MD Surgery - Urology 01/27/16
--- NOTE | 2024-09-18 14:00 | CRLHL7_ITS ---
For Patients: As a result of the Cures Act, medical imaging exams and procedure reports are released immediately into your electronic medical record. You may view this report before your referring provider. If you have questions, please contact your health care provider. Indication: red, palpable lump left groin Technique: Grayscale and color Doppler ultrasound of the left groin soft tissues performed. Comparison: Report from CT 11/12/2022 Findings: Enlarged left inguinal lymph node is present measuring 2.7 x 0.9 x 2.1 cm. Increased Doppler flow noted. Cortex measures 2.6 millimeters. No fluid collection. No hernia. Impression: Reactive left inguinal lymph node is present measuring 2.7 cm. Dictated by Michael Montez MD @ 09/19/2024 11:16:23 AM (Electronically Signed)
--- NOTE | 2024-09-18 14:00 | CRLHL7_ITS ---
For Patients: As a result of the Century Cures Act, medical imaging exams and procedure reports are released immediately into your electronic medical record. You may view this report before your referring provider. If you have questions, please contact your health care provider. INDICATION: Leg swelling and left knee replacement TECHNIQUE: Ultrasound venous duplex lower left extremity. Compression venous exam was performed using calloway-scale, color Doppler, and spectral Doppler analysis. COMPARISON: None. FINDINGS: Sonographic imaging demonstrates the left common femoral, deep femoral, superficial femoral, popliteal, posterior tibial and greater saphenous veins to be fully compressible with normal color Doppler blood flow. Anechoic avascular collection within the popliteal fossa measuring 3.7 x 2.5 x 2.7 centimeters. IMPRESSION: 1. No evidence of deep venous thrombosis left lower extremity. 2. Left Witt`s cyst. Dictated by Florian Moreira MD @ 09/18/2024 3:41:01 PM (Electronically Signed)
== END 2024-09-18 13:31 | disposition home or self-care (01) ==
PROVIDERS: PCP Internal Medicine; Visit Provider Family Medicine
DX: R19.09 Other intra-abdominal and pelvic swelling, mass and lump (principal); R59.0 Localized enlarged lymph nodes; R22.42 Localized swelling, mass and lump, left lower limb; M71.22 Synovial cyst of popliteal space [Baker], left knee
CPT/HCPCS: 76882; 93971

== ENCOUNTER 2024-09-19 13:00 | Outpatient (RCR) | payer MEDICARE, BC, SELFPAY ==
--- NOTE | 2024-08-11 18:37 | PT.OPEX ---
PT [place] Outpatient Eval PT [facility] Outpatient Eval Start: 08/11/24 18:12 Freq: Status: Active Protocol: Document 08/11/24 18:13 DOREEN (Rec: 08/11/24 18:33 [id number]) E-signed By Olinda Bosch DPT Physical Therapy Outpatient Evaluation Insurance Information Recert Due Date 11/09/24 Insurance Name Medicare B,Blue [employer] Medical Diagnosis s/p L TKA 08/09/24 Treating Diagnosis s/p L TKA 08/09/24 with L Knee pain, impaired L knee ROM, impaired L knee/LE mobility/ strength, limping/antalgic gait, limited tolerance for extended standing/walking Subjective Subjective Patient reports having L TKA 08/09 with d/c home yesterday. She is amb with FWW. Reports having her daughter staying with her to assist as needed after surgery. Patient states she had R TKA surgery earlier this year. Reports that went well. States she is having more pain after this surgery but also states she had a hematoma so they had to open the wound back up to assess it right after her surgery. She is wearing tubigrip on L knee, dressing remains in place. Patient is doing her HEP, feels they are going ok. She has 13 stairs at home to get up to the main level. She is taking pain meds regularly, icing regularly. Sleep is interrupted. Pain range 5-8/ 10. Date of Surgery (If applicable) 08/09/24 Current Work Status Retired Assessment Assessment/Impression Patient is an 84 year old female s/p L TKA 08/09/24 with L Knee pain, impaired L knee ROM, impaired L knee/LE mobility/strength, limping/ antalgic gait, limited tolerance for extended standing/walking. Pain range 5-8/10. Patient is taking pain meds regularly, icing regularly. Weak L quad set, ext lag and assist with SAQ/ LAQ/SLR. L knee ROM 0-4-114 degrees. Reviewed TKA exercises this session. Patient with a good understanding of her HEP. She will continue with L knee flex/ext stretching. Patient to continue using her FWW for all amb. She expressed understanding. She will remove her dressing over the weekend as instructed by . Patient has f/u with MARQUITA Easton next week. Tubigrip in place over L knee, issued tubigrip for lower leg as well. Patient reports tubigrip feels good, supportive. Patient would benefit from skilled PT for pain/swelling management, improved L knee ROM, improved L knee/LE mobility/strength, gait training, balance/ proprioception training, and establishment of HEP. Plan of Care Rehabilitation Potential Good Physical Therapy Goals 1. Decrease L knee pain to less than/equal to 3/10 with daily activities and with the progression of PT activities over the next 4-6 weeks. 2. Improve L knee ROM to 0- 120 degrees or greater over the next 6-8 weeks for return to functional knee ROM and improved gait mechanics. 3. Improve L knee/LE mobility /strength over the next 6-8 weeks for return to transfers with ease, return to extended standing/ walking for ADLs/household activities, and for improved gait mechanics with/without AD. 4. Patient will be I with HEP within 8 weeks for progression toward above goals, ongoing self-management of pain/swelling, ongoing self improvements in L knee ROM/strength and for return to normal gait with/ without AD. Coordination/Communication With Referral Source Treatment Plan/Direct Interventions Gait Training,Manual Therapy, Therapeutic Exercises Frequency/Duration 2x/week Patient Will Be Discharged From Therapy Completion of LTG(s),Skills Plateau,Independent w/HEP, Independently Progressing Evaluation Billing Untimed Code Treatment Minutes 20 Complexity Moderate Certification Information Initial Certification Date 08/11/24 Ending Certification Date 11/09/24 Provider Signature Required Yes Provider Signature Shows Agreement With POC & Medical Necessity Physician NPI Number Write NPI# Here Physician Comment/Change : Physician Signature & Date Requested Please Sign/Date Here
== END 2025-01-17 23:59 | disposition home or self-care (01) ==
PROVIDERS: PCP Internal Medicine; Visit Provider Orthopaedic Surgery Sports Medicine
DX: M25.562 Pain in left knee (principal); Z96.652 Presence of left artificial knee joint; Z51.89 Encounter for other specified aftercare; R53.1 Weakness; R26.89 Other abnormalities of gait and mobility
CPT/HCPCS: 97110; 97162

== ENCOUNTER 2024-09-19 15:30 | Outpatient (CLI) | payer MEDICARE, BC, SELFPAY ==
--- OUTSIDE RECORDS SUMMARY | 2024-09-23 13:18 | XMS_ITS | Clinical Summary ---
Author Organization [employer] [facility] Address [place], [place] [address] Care Team Providers Care Horse Wrangler Name Role Phone Sohan Geiger MD Unavailable [phone] Conchis Thompson MD Primary Care Provider + Allergies Active Allergy Reactions Criticality Noted Date Comments Codeine Intolerance-Can't Take Makes her nauseated Medications [place] [id number]-Rsy tosterol 500 mg-500 mcg -1 mg-12.5 mg cap Daily Activ e Garlic 100 mg tab Active Rutin 500 mg tab Daily Active calcium carbonate (OS-LULU 500) 500 mg calcium (1,250 mg) tablet once daily. Active acetaminophen (TYLENOL EXTRA STRGTH) 500 mg tablet Take 1,000 mg by mouth every 6 hours if needed. 9 Active glucosamine 500 mg capsule Active lutein 6 mg cap Daily Acti ve estradioL (ESTRACE) 0.01% (0.1 mg/g) vaginal cream INSERT 0.5GM VAGINALLY ONCE NIGHTLY FOR 2 WEEKS, THEN USE TWICE WEEKLY 2 Active Active Problems Problem Noted Date Diagnosed [...] is size. See colonoscopy report 2009 at [facility]. Recommend CT colonograpy every 5 years. 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 Maria R Steiner DO DEXA Final Resu lt from Last 3 Months or Most Recently Relevant to Health Maintenance Insurance MEDICARE PB ONLY MEDICARE PART A HB ONLY MEDICARE PART B HB ONLY BLUE [place]OSS [place] FED EMP Care Teams Horse Wrangler Relationship Specialty Start Date End Date Conchis Thompson MD [address] [place] [address] PCP - General Family Practice 06/15/18 Sohan Geiger MD Surgery - Urology 01/27/16
== END 2024-09-19 15:31 | disposition home or self-care (01) ==
LOC: NFLDREF 09-23 13:16
PROVIDERS: PCP Internal Medicine; Referring Provider Internal Medicine; Visit Provider Orthopaedic Surgery Sports Medicine
DX: L03.116 Cellulitis of left lower limb (principal); Z96.652 Presence of left artificial knee joint
CPT/HCPCS: 87070; 87205; 89051; 89060

== ENCOUNTER 2024-12-25 09:49 | Outpatient (CLI) | payer MEDICARE, BC, SELFPAY | END 2024-12-25 09:50 | disposition home or self-care (01) | LOC: RAD 09:51 | PROVIDERS: PCP Internal Medicine; Visit Provider Internal Medicine | DX: I35.0 Nonrheumatic aortic (valve) stenosis (principal); I51.7 Cardiomegaly; I35.1 Nonrheumatic aortic (valve) insufficiency; I34.0 Nonrheumatic mitral (valve) insufficiency; I07.1 Rheumatic tricuspid insufficiency | CPT/HCPCS: 93306 ==

== ENCOUNTER 2025-03-24 20:58 | Observation (INO) | payer MEDICARE, BC, SELFPAY ==
[2025-03-24] VITALS (15 sets, daily range): BP systolic 137–171; BP diastolic 86–109; PULSE 70–82; RESP 18–20; TEMP 36.7–37.2; O2SAT 96–98; BMI 19.6
--- OUTSIDE RECORDS SUMMARY | 2025-03-24 21:00 | XMS_ITS | Clinical Summary ---
Author Organization [facility] Address [address] [place] [address] Care Team Providers Care Technical Documentation Specialist Name Role Phone Sohan Geiger MD Unavailable [phone] Conchis Thompson MD Primary Care Provider + Allergies Active Allergy Reactions Criticality Noted Date Comments Codeine Intolerance-Can't Take Makes her nauseated Medications Renick [id number] tosterol 500 mg-500 mcg -1 mg-12.5 mg [...] WEEKS, THEN USE TWICE WEEKLY 2 Active torsemide 10 mg tabletIndicatio ns:HTN (hypertension) Take 1 Tablet (10 mg) by mouth once daily. 90 Tablet 1 5 Active Active Problems Problem Noted Date Diagnosed [...] is size. See colonoscopy report 2009 at [facility]. Recommend CT colonograpy every 5 years. Routine [...] Encounters Date Type Department Care Team Description 01/05/2025 Telephone [facility] - [place] [address] [facility] [address] [place] [address] Naveen Freeman MD, PhD Refill Request 01/04/2025 11:30 AM CDT Office Visit [facility] [address] [place] [address] Naveen Freeman MD, PhD 12/26/2024 Telephone [facility] - [address] [place] [address] Olga Lidia Grant MD Results 12/25/2024 10:00 AM CDT Ancillary Procedure [facility] [address] [place] [address] from Last 3 Months Immunizations Immunization Administration Dates Next Due Pneumococcal Poly,23-Valent (Pneumovax) [...] on file Legal 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 Gender Identity Not on file Sexual Orientation [...] CDT Respiratory Rate 16 11/17/2021 8:29 PM [employer]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 Oxygen Saturation 100% 05/19/2023 2:02 PM [...] 01/27/2016, 01/27/2016 Medicare Wellness for age 65+ 02/27/2018 02/26/2017, 01/27/2016, 07/12/2012, Additional history exists BMI (ht and wt on same day) for age 18+ 05/03/2018 05/03/2017, 04/15/2017, 03/04/2017, Additional history exists Tetanus booster 05/26/2021 05/26/2011, 12/16/2001 COVID-19 vaccine series ( season) 2025 07/18/2024, 10/21/2023, 07/17/2021, Additional history exists Influenza Vaccine (Season Ended) 2025 Tdap Completed 05/26/2011 Pneumococcal series for age 50+ Completed 01/27/2016, 10/17/2008 DEXA/DXA scan for age 65+ Completed 01/28/2016, Hepatitis B series for 19+ Aged Out N o longer eligible based on patient's age to complete this topic Procedures Procedure Name Priority Date/Time Associated Diagnosis Comments ECHO TTE COMPLETE WO CONTRAST Routine 12/25/2024 10:30 AM CDT Aortic valve stenosis, etiology of cardiac valve disease unspecified XR DXA BONE DENSITY 2 SITES AXIAL Routine 01/28/2016 11:23 AM CDT Asymptomatic menopausal state Screening for osteoporosis from Last 3 Months or Most Recently Relevant to Health Maintenance Results * ECHO TTE COMPLETE WO CONTRAST (12/25/2024 10:30 AM CDT) AORTIC VALVE MEAN PG 11 mmHg EJECTION FRACTION 61 % PEAK TR VELOCITY 2.4 m/s LVEDD 3.7 cm EJECTION FRACTION 55 - 60% Anatomical Region Laterality Modality Ultrasound 12/25/2024 10:1 0 AM CDT Narrative 12/25/2024 12:54 PM CDT ECHOCARDIOGRAM SAVI CHEN : 1940 84 years Study Date: 12/25/2024 10:10:42 AM Gender: F BP: 140/73 mmHg Height: 163.00 cm BSA: 1.53 m Weight: 51.00 kg Tech: SILAS Referring MD: OLGA LIDIA GRANT Site: [facility] Reading Location: Mobile-OP Patient Location: Outpatient. Procedure: 2D, Color Doppler and Spectral Doppler. Indication for study: Ao Stenosis Cardiac Rhythm: Regular.Study quality: Fair. Final Impressions: 1. Normal LV size, normal wall thickness, normal global systolic function with an estimated EF of 55 - 60%. 2. Mildly enlarged left atrium. 3. Right ventricular cavity size is normal, global systolic RV function is normal. 4. The aortic valve is sclerotic, mild stenosis and mild regurgitation. 5. The mitral valve is normal, mild mitral regurgitation. 6. Tricuspid valve is non coapting and severe tricuspid regurgitation. 7. The inferior vena cava is dilated, respiratory size variation less than 50%, consistent with elevated right atrial pressure. Chamber Sizes and Function Normal left ventricular size, normal wall thickness, normal global systolic function with an estimated EF of 55 - 60%. No resting regional wall motion abnormality visualized. Left atrial size is mildly enlarged. Right ventricular cavity size is normal, global systolic RV function is normal. RV wall thickness is normal. The right atrium is severely enlarged. Right atrial volume index is 63 ml/m . Right atrial area is 28 cm . The pulmonary artery is of normal size and origin. The sinus of Valsalva is normal sized. The ascending aorta is normal sized. Valves, RV Pressures and Diastolic Function The aortic valve is sclerotic, mild stenosis and mild regurgitation. The mitral valve is normal in structure, mild mitral regurgitation. Spectral Doppler shows Grade 1 pattern of LV diastolic filling. The tricuspid valve is fails to coapt and severe tricuspid regurgitation. The tricuspid regurgitant velocity is 2.4 m/s, the estimated right ventricular systolic pressure is 23 mmHg plus right atrial pressure. The pulmonic valve is normal. No pulmonary regurgitation. Masses, Effusion, Shunts There is no pericardial effusion. The inferior vena cava is dilated, respiratory size variation less than 50%, consistent with elevated right atrial pressure. No left to right shunting was detected by limited color flow Doppler interrogation of the interatrial septum. MEASUREMENTS AND CALCULATIONS 2-D Measurements and LV Function: LVID (d) 3.7 cm LV FS% (2D) 40 % LVID (s) 2.2 cm LVOT diameter 2.2 cm IVS (d) 1.1 cm HR 64 bpm LVPW (d) 1.2 cm RA Vol index 63 ml/m2 Ao Sinus 3.3 cm RA area 28 cm Ao Sinus ULN 3.6 cm * RV Basal Diam 3.1 cm Asc Ao 3.6 cm RV Mid Diam 1.8 cm Asc Ao ULN 3.9 cm * LA 3.8 cm * Input age outside of range, reported values correspond to Age = 81 Diastology: Mitral Tissue Doppler Pulmonary veins E Peak 0.7 m/s e', Septum 0.07 m/s Pulm s 51.0 cm/s A Peak 0.9 m/s e', Lateral 0.06 m/s Pulm d 31.1 cm/s E/A 0.8 E/e' Average 11.00 Pulm s/d ratio 1.64 DT 252 msec Aortic Valve: Vmax 2.2 m/s DUSTY (V) 1.56 cm VTI 0.53 m DUSTY (I) 1.39 cm LVOT V max 0.9 m/s Max PG 19 mmHg LVOT VTI 0.19 m Mean PG 11 mmHg SV 73 ml Dim Index 0.37 SV index 48 ml/m CO 4.7 l/min CI 3.0 l/min/m Mitral Valve: MVA 3.0 cm MV P 1/2 73 msec Tricuspid Valve and estimated PA pressures: TR Vmax 2.4 m/s TAPSE 2.1 cm TR maxG 23 mmHg TV Annulus 4.0 cm Pulmonic Valve: PV Vmax 1.1 m/s . This study was interpreted by an [facility] accredited facility. CC: [facility] ([facility]) [facility]. Final Procedure Note Alverto Kern MD - 12/25/2024 ECHOCARDIOGRAM SAVI CHEN : 1940 84 years Study Date: 12/25/2024 10:10:42 AM Gender: F BP: 140/73 mmHg Height: 163.00 cm BSA: 1.53 m Weight: 51.00 kg Tech: SILAS Referring MD: OLGA LIDIA GRANT Site: [facility] Reading Location: Mobile-OP Patient Location: Outpatient. Procedure: 2D, Color Doppler and Spectral Doppler. Indication for study: Ao Stenosis Cardiac Rhythm: Regular.Study quality: Fair. Final Impressions: 1. Normal LV size, normal wall thickness, normal global systolic functionwith an estimated EF of 55 - 60%. 2. Mildly enlarged left atrium. 3. Right ventricular cavity size is normal, global systolic RV functionis normal. 4. The aortic valve is sclerotic, mild stenosis and mild regurgitation. 5. The mitral valve is normal, mild mitral regurgitation. 6. Tricuspid valve is non coapting and severe tricuspid regurgitation. 7. The inferior vena cava is dilated, respiratory size variation lessthan 50%, consistent with elevated right atrial pressure. Chamber Sizes and Function Normal left ventricular size, normal wall thickness, normal globalsystolic function with an estimated EF of 55 - 60%. No resting regionalwall motion abnormality visualized. Left atrial size is mildly enlarged.Right ventricular cavity size is normal, global systolic RV function isnormal. RV wall thickness is normal. The right atrium is severelyenlarged. Right atrial volume index is 63 ml/m . Right atrial area is 28cm . The pulmonary artery is of normal size and origin. The sinus ofValsalva is normal sized. The ascending aorta is normal sized. Valves, RV Pressures and Diastolic Function The aortic valve is sclerotic, mild stenosis and mild regurgitation. Themitral valve is normal in structure, mild mitral regurgitation. SpectralDoppler shows Grade 1 pattern of LV diastolic filling. The tricuspid valveis fails to coapt and severe tricuspid regurgitation. The tricuspidregurgitant velocity is 2.4 m/s, the estimated right ventricular systolicpressure is 23 mmHg plus right atrial pressure. The pulmonic valve isnormal. No pulmonary regurgitation. Masses, Effusion, Shunts There is no pericardial effusion. The inferior vena cava is dilated,respiratory size variation less than 50%, consistent with elevated rightatrial pressure. No left to right shunting was detected by limited colorflow Doppler interrogation of the interatrial septum. MEASUREMENTS AND CALCULATIONS 2-D Measurements and LV Function: LVID (d) 3.7 cm LV FS% (2D) 40% LVID (s) 2.2 cm LVOT diameter2.2 cm IVS (d) 1.1 cm HR 64bpm LVPW (d) 1.2 cm RA Vol index 63ml/m2 Ao Sinus 3.3 cm RA area 28cm Ao Sinus ULN 3.6 cm * RV Basal Diam3.1 cm Asc Ao 3.6 cm RV Mid Diam1.8 cm Asc Ao ULN 3.9 cm * LA 3.8 cm * Input age outside of range, reported values correspond to Age = 81 Diastology: Mitral Tissue Doppler Pulmonary veins E Peak 0.7 m/s e', Septum 0.07 m/s Pulm s 51.0 cm/s A Peak 0.9 m/s e', Lateral 0.06 m/s Pulm d 31.1 cm/s E/A 0.8 E/e' Average 11.00 Pulm s/d ratio 1.64 DT 252 msec Aortic Valve: Vmax 2.2 m/s DUSTY (V) 1.56 cm VTI 0.53 m DUSTY (I) 1.39 cm LVOT V max 0.9 m/s Max PG 19 mmHg LVOT VTI 0.19 m Mean PG 11 mmHg SV 73 ml Dim Index 0.37 SV index 48 ml/m CO 4.7 l/min CI 3.0 l/min/m Mitral Valve: MVA 3.0 cm MV P 1/2 73 msec Tricuspid Valve and estimated PA pressures: TR Vmax 2.4 m/s TAPSE 2.1 cm TR maxG 23 mmHg TV Annulus 4.0 cm Pulmonic Valve: PV Vmax 1.1 m/s . This study was interpreted by an [facility] accredited facility. CC: [facility] ([facility]) [facility]. Final us Olga Lidia Grant MD ECHO ORD Final R esult * (ABNORMAL) XR DXA BONE DENSITY 2 [...] PB ONLY MEDICARE PART A HB ONLY Member Subscriber Plan / Payer (Ef fective 2006-Present) Name:Savi Chen Member ID:[id number] Relation to Subscriber:Self Name:Savi Chen Subscriber ID:[id number] Payer ID:Not on file Group ID:Not on file Type:Not on file Address: ATTN: CLAIMS [address] [place] [phone] MEDICARE PART B HB ONLY [facility] FED EMP Care Teams Technical Documentation Specialist Relationship Specialty Start Date End Date Conchis Thompson MD [address] [place] [address] PCP - General Family Practice 06/15/18 Sohan Geiger MD Surgery - Urology 01/27/16
--- OUTSIDE RECORDS SUMMARY | 2025-03-24 21:00 | XMS_ITS | Data Portability ---
Author Organization [place] [facility], autoContract - [id number] Address [address] [place] [address] Assessment Encounter Date Assessment Date Assessment LastModified by Organization Details LastModified Time 10/16/2024 10/16/2024 ASSESSMENT: Patient is a good candidate for conservative care and the prognosis is for a favorable outcome that achieves the patients' goals. We discussed etiology, activity modifications, home care, and other treatment options. Initially, it is recommended that the patient receive in-office treatment 1 times per week for 8 weeks at which time a re-evaluation will be performed to determine an appropriate change in plan. Initially, treatment will focus on joint manipulation to restore range of motion and reduce pain. We will slowly progress to therapeutic exercises and activities to improve function, strength, and stability may also be used as warranted. If the patient is not responding as expected, more invasive procedures will be discussed along with a referral. All considerations above were discussed with the patient and questions answered to satisfaction. If the patient should have any additional questions, or should the condition evolve or worsen, the patient should not hesitate to contact our office. ASSESSMENT: Patient is a good candidate for conservative care and the prognosis is for a favorable outcome that achieves the patients' goals. We discussed etiology, activity modifications, home care, and other treatment options. Initially, it is recommended that the patient receive in-office treatment 1 times per week for 8 weeks at which time a re-evaluation will be performed to determine an appropriate change in plan. Initially, treatment will focus on joint manipulation to restore range of motion and reduce pain. We will slowly progress to therapeutic exercises and activities to improve function, strength, and stability may also be used as warranted. If the patient is not responding as expected, more invasive procedures will be discussed along with a referral. All considerations above were discussed with the patient and questions answered to satisfaction. If the patient should have any additional questions, or should the condition evolve or worsen, the patient should not hesitate to contact our office. ecram Not available 10/16/2024 22:00:16 Plan of Treatment Reminders Order Date Submit Date Provider Last Modified By Organization Details Last Modified Time Details Appointments None record ed. Lab None record ed. Referral None record ed. Procedures None record ed. Surgeries None record ed. Imaging None record ed. Medication Orders None record ed. Patient TargetsNo targets recorded. Patient InstructionsNo instructions recorded. Reason for Referral None Reported. Problems Name Problem SNOMED Code Status Onset Date Resolution Date Notes Provider Name and Address Organization Details Recorded Time Neck pain 50310554 Active 2023 Jose Saldana DC [address], [place], [address], [facility] 22:00:13 Cervical segmental dysfunction 770795941 Active 2023 Jose AguilerakaylanMARY [address], [place], [address], [facility] 4 22:00:13 Thoracic segmental dysfunction 426503197 Active 2023 Jose AguilerakaylanMARY [address], [place], [address], [facility] 4 22:00:13 Lumbar segmental dysfunction 340796198 Active 2023 Jose AguilerakaylanMARY [address], [place], [address], [facility] 4 22:00:14 Low back pain 685072386 Active 2023 Jose Aguilerakaylan, MARY [address], [place], [address], [facility] 4 22:00:17 Somatic dysfunction of sacral spine 775998789 Active 2023 Jose Saldana DC [address], [place], [address], [facility] 4 22:00:17 Problem Notes None recorded. Procedures Surgical History Date Name Laterality Status Provider Name and Address Organization Details Recorded Time [address]57[address]: Spinal manipulation , 3 to 4 regions completed Jose Saldana DC [address], [place], [address], [facility] 10/16/2024 22:03:16 Imaging Results None recorded. Procedure Notes None recorded. Medical Equipment None Reported. Vitals None Recorded Social History None recorded. Functional Status None recorded. Mental Status None recorded. Family History Nothing Reported. Medical History No medical history recorded. Gynecological HistoryNo gynecological history recorded. Obstetrics History GPAL:G 0 P 0 0 0 0 Past Encounters Encounter ID Performer Location Encounter Start Date Encounter Closed Date Diagnosis/Indication Diagnosis SNOMED-CT Code Diagnosis ICD10 Code Diagnosis Note [id number] MARY Rubi [facility] [address] [place] [address] 10/16/2024 15:46:19 10/24/2024 11:09:28 Cervical segmental dysfunction 504899737 M99.01 Neck pain 46622296 M54.2 Thoracic s egmental dysfunction 162860040 M99.02 Lumbar seg mental dysfunction 581874827 M99.03 Low back pain 839467148 M54.50 Somatic dy sfunction of sacral spine 852581398 M99.04 Health Concerns Section Related Observation LastModified by Organization Detai ls LastModified Time None Recorded Concern Status LastModified by Organization Details LastModified Time None Recorded Advance Directives Directive None Recorded Payers Encounter Date Sequence Insurance Name Policy Number Policy Bower Covered Member ID Bower Member ID Guarantor Name 10/16/2024 1 [place] [employer] [employer] [place] Savi Hughes [id number] 5 Savi Hughes 10/16/2024 2 [place] [employer] 104 Savi Hughes [id number] Savi Hughes Notes Date Note Type Note Provider Name and Address Organization Details Recorded Time 10/16/2024 text/html HPI - Cervical SpineReported bypatient.Location: right Quality:aching Severity:moderate Duration:2 days Timing:gradual Alleviating Factors:rest Aggravating Factors:bending; twisting/turning Associated Symptoms:no numbness/tinglingHP I - Lumbar SpineReported bypatient.Location: bilateral; With radiation to knee Quality:aching Severity:not changing Timing:recurrent Duration:chronic Aggravating Factors:twisting; bending/squatting Alleviating Factors:rest Jose Saldana DC [address], [place], [address], [facility] 10/16/2024 22:03:52 OBGyn Episode No OBEpisode recorded.
--- OUTSIDE RECORDS SUMMARY | 2025-03-24 21:01 | XMS_ITS | Data Portability ---
Author Organization [place] [facility] - [facility] Address [address] [place] [address] Assessment Encounter Date Assessment Date Assessment LastModified [...] Address Organization Details Recorded Time Neck pain 69996249 Active 2023 Jose Saldana DC [address], [place], [address], [facility] 22:00:13 Cervical segmental dysfunction 478292911 Active 2023 Jose AguilerakaylanMARY [address], [place], [address], [facility] 4 22:00:13 Thoracic segmental dysfunction 258599879 Active 2023 Jose AguilerakaylanMARY [address], [place], [address], [facility] 4 22:00:13 Lumbar segmental dysfunction 577420000 Active 2023 Jose AguilerakaylanMARY [address], [place], [address], [facility] 4 22:00:14 Low back pain 038195613 Active 2023 Jose Aguilerakaylan, MARY [address], [place], [address], [facility] 4 22:00:17 Somatic dysfunction of sacral spine 056555540 Active 2023 Jose Saldana DC [address], [place], [address], [facility] 4 22:00:17 Problem Notes None recorded. Procedures Surgical History Date Name Laterality Status Provider Name and Address Organization Details Recorded Time 74191: Spinal manipulation , 3 to 4 regions completed Jose Saldana DC [address], [place], [address], [facility] 10/16/2024 22:03:16 Imaging Results None [...] SNOMED-CT Code Diagnosis ICD10 Code Diagnosis Note [id number] MARY Rubi [facility] [address] [place] [address] 10/16/2024 15:46:19 10/24/2024 11:09:28 Cervical segmental dysfunction 699340432 M99.01 Neck pain 15088327 M54.2 Thoracic s egmental dysfunction 285282967 M99.02 Lumbar seg mental dysfunction 213420048 M99.03 Low back pain 441113216 M54.50 Somatic dy sfunction of sacral spine 532553774 M99.04 Health Concerns Section Related Observation LastModified by Organization Detai ls LastModified Time None Recorded Concern Status LastModified by Organization Details LastModified Time None Recorded Advance Directives Directive None Recorded Payers Encounter Date Sequence Insurance Name Policy Number Policy Bower Covered Member ID Bower Member ID Guarantor Name 10/16/2024 1 [place] Savi Hughes [id number] 5 Savi Hughes 10/16/2024 2 [place] 104 Savi Hughes [id number] Savi Hughes Notes Date Note Type Note Provider Name and Address Organization Details Recorded Time 10/16/2024 text/html HPI - Cervical SpineReported bypatient.Location: right Quality:aching Severity:moderate Duration:2 days Timing:gradual Alleviating Factors:rest Aggravating Factors:bending; twisting/turning Associated Symptoms:no numbness/tinglingHP I - Lumbar SpineReported bypatient.Location: bilateral; With radiation to knee Quality:aching Severity:not changing Timing:recurrent Duration:chronic Aggravating Factors:twisting; bending/squatting Alleviating Factors:rest Jose Saldana DC [address], [place], [address], [facility] 10/16/2024 22:03:52 OBGyn Episode No OBEpisode recorded.
--- NOTE | 2025-03-24 21:07 | CRLHL7_ITS ---
For Patients: As a result of the Century Cures Act, medical imaging exams and procedure reports are released immediately into your electronic medical record. You may view this report before your referring provider. If you have questions, please contact your health care provider. INDICATION: Abdominal pain. History of bladder cancer. TECHNIQUE: CT abdomen and pelvis acquired with 55 cc Isovue 370 IV contrast. COMPARISON: November 12, 2022.. FINDINGS: Lower chest: Scattered atelectasis. Liver: Few scattered tiny hepatic hypodensities.. Normal in size and attenuation. No suspicious masses. Gallbladder and bile ducts: Unremarkable. No stones or inflammation. No biliary dilatation. Pancreas: Unremarkable. No mass or inflammation. Spleen: Unremarkable. Normal in size. No masses. Adrenal glands: Unremarkable. No nodules. Kidneys: Unremarkable. No suspicious masses, stones, or hydronephrosis. GI tract: Multiple dilated loops of small bowel in the lower abdomen/pelvis. Moderate colonic stool burden. Vasculature: Aortoiliac arterial calcifications. Abdominal aorta is normal in caliber. Mesenteric arteries are patent. Lymph nodes: No lymphadenopathy. Peritoneum/Abdominal Wall: Unremarkable. No sign of mass or infiltration. No free air or significant free fluid. Pelvis: Hysterectomy.. Bones: Posterior L3-L5 hardware fixation. IMPRESSION: Multiple dilated loops of small bowel in the lower abdomen/pelvis concerning for small bowel obstruction. Moderate colonic stool burden. Please note that all CT scans at this facility use dose modulation, iterative reconstruction, and/or weight-based dosing when appropriate to reduce radiation dose to as low as reasonably achievable. Dictated by Santi Cleaning MD @ 03/24/2025 10:21:48 PM (Electronically Signed)
--- NOTE | 2025-03-24 21:08 | ED.GENADULT ---
HPI - General Adult General Chief complaint: Abdominal Pain Stated complaint: Stomach, abdominal pain Time Seen by Provider: 03/24/25 21:01 History of Present Illness HPI narrative: Patient is 84-year-old female who has had abdominal pain since about noon today. No spit a specific location other than generalized abdominal pain she had a bowel movement this morning. She was concerned about potential obstruction as she had a bowel obstruction years ago subsequent to hysterectomy. Her history looks like she has incomplete bladder emptying migraine, severe tricuspid regurgitation, essential hypertension. Medications are reviewed including metoprolol torsemide. Patient denies chest pain, breathing problem, diaphoresis or fever. She felt nauseated today but did not vomit. Related Data Home Medications ?Medication ?Instructions ?Recorded ?Confirmed calcium carbonate 500 mg PO DAILY 09/29/22 03/24/25 fish oil-dha-epa See Rx Instructions PO DAILY 09/29/22 03/24/25 glucosamine sulfate 500 mg capsule 500 mg PO DAILY 09/29/22 03/24/25 vitamin B complex 1 tab PO DAILY 09/29/22 03/24/25 torsemide 10 mg tablet 10 mg PO DAILY 01/04/25 03/25/25 Previous Rx's ?Medication ?Instructions ?Recorded metoprolol succinate 25 mg 25 mg PO DAILY #90 tabs 10/12/24 tablet,extended release 24 hr (Toprol XL) estradiol 0.01% (0.1 mg/gram) 0.5 appful vaginal 2XW #42.5 grams 01/01/25 vaginal cream Allergies Allergy/AdvReac Type Severity Reaction Status Date / Time No Known Allergies Allergy Verified 03/25/25 00:07 Review of Systems Status of ROS: Reports: 6 or more systems reviewed and unremarkable except as noted in History and below [facility] Medical History (Updated 03/26/25 @ 07:47 by Elizabeth Hameed MD) History of bladder cancer ?Z85.51 - Personal history of malignant neoplasm of bladder (ICD-10) Surgical History (Updated 03/24/25 @ 23:57 by Tamara Fierro MD) 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/09/24) ?Z96.652 - Presence of left artificial knee joint (ICD-10) 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) ?Z96.651 - Presence of right artificial knee joint (ICD-10) H/O foot surgery (10/23/08) ?Z98.890 - Other specified postprocedural states (ICD-10) H/O cystoscopy (12/10/14) ?Z98.890 - Other specified postprocedural states (ICD-10) History of cataract surgery ?Z98.49 - Cataract extraction status, unspecified eye (ICD-10) History of total hysterectomy with removal of both tubes and ovaries (1995) ?Z90.710 - Acquired absence of both cervix and uterus (ICD-10) ?Z90.722 - Acquired absence of ovaries, bilateral (ICD-10) ?Z90.79 - Acquired absence of other genital organ(s) (ICD-10) History of laparotomy (1999) ?Z98.890 - Other specified postprocedural states (ICD-10) History of appendectomy (1997) ?Z90.49 - Acquired absence of other specified parts of digestive tract (ICD-10) Family History Brother Colon cancer Social History (Updated 03/24/25 @ 23:58 by Tamara Fierro MD) Narrative: Lives independently in her own home. Nonsmoker. Alcohol use once a year on [place]. What is your current living situation?: I presently have a place to live Problems where you live: no known problems Problems where you live details: n/a In the past 12 months, utilities in danger of being shut off: no In past 12 months, lack of transportation kept you from medical appts, meetings, work, or getting things needed for daily living: no In the past 12 mos, have been you worried that your food would run out before you had money to buy more?: never true In the past 12 mos, the food you bought just didn't last and you didn't have money to buy more?: never true Highest level of school completed/degree received: high school graduate Smoking Status: Never smoker Do you use any of these nicotine containing products: None Second hand tobacco smoke exposure: No How often do you have a drink containing alcohol: monthly or less Alcohol type: wine How many standard drinks containing alcohol do you have on a typical day: 1 or 2 How often do you have six or more drinks on one occasion: Never AUDIT-C Alcohol total score: 1 Non-prescribed substance use: marijuana (any form) Non-prescribed substance use details: CBD oil Caffeine: Yes How often does anyone, including family, friends and others, physically hurt you: never How often does anyone, including family, friends and others, insult or talk down to you: never How often does anyone, including family, friends and others, threaten you with harm: never How often does anyone, including family, friends and others, scream or curse at you: never service: No Exam Narrative: Exam Narrative: Objective: In no apparent distress talkative Noncyanotic Alert orient x3 Hard of hearing Neck is supple Pulse regular Abdomen benign soft no masses or peritonitis midline surgical scar noted. Extremities are no edema Neurologic nonfocal upper extremities. Const: Vital Signs, click to edit/add: Vital Signs - 24 hr 03/24/25 21:07 03/24/25 21:38 03/24/25 21:45 Temperature 98.0 F Pulse Rate 72 70 Pulse Rate [Pulse Oximeter] 82 Respiratory Rate 20 Blood Pressure Blood Pressure [Ri ght Upper Arm] 171/109 H Pulse Oximetry 98 97 97 Oxygen Delivery Me thod Room Air 03/24/25 21:46 Temperature Pulse Rate 72 Pulse Rate [Pulse Oximeter] Respiratory Rate Blood Pressure 143/90 H Blood Pressure [Ri ght Upper Arm] Pulse Oximetry 97 Oxygen Delivery Me thod Course Vital Signs Vital signs: Initial Vital Signs Temperature 98.0 F 03/24/25 21:07 Temperature Source Oral 03/24/25 21:07 Pulse Rate 82 03/24/25 21:07 Respiratory Rate 20 03/24/25 21:07 Blood Pressure 171/109 H 03/24/25 21:07 Blood Pressure Mean 129 H 03/24/25 21:07 Pulse Oximetry 98 03/24/25 21:07 Oxygen Delivery Method Room Air 03/24/25 21:07 Vital Signs Temperature 98.0 F 03/24/25 21:07 Pulse Rate 82 03/24/25 21:07 Respiratory Rate 20 03/24/25 21:07 Blood Pressure 171/109 H 03/24/25 21:07 Pulse Oximetry 98 03/24/25 21:07 Oxygen Delivery Method Room Air 03/24/25 21:07 Temperature 98.1 F 03/25/25 11:41 Pulse Rate 78 03/25/25 11:41 Respiratory Rate 16 03/25/25 11:41 Blood Pressure 115/78 03/25/25 11:41 Pulse Oximetry 98 03/25/25 11:41 Oxygen Delivery Method Room Air 03/25/25 11:41 Medications Administered Medications: Discontinued Medications Generic Name Dose Route Start Last Admin Trade Name Freq PRN Reason Stop Dose Admin Bisacodyl 10 mg 03/25/25 09:00 03/25/25 11:41 Bisacodyl 10 Mg Supp.Rect NJ Not Given DAILY ANALI Hydromorphone HCl 0.2 - 0.5 mg 03/24/25 23:45 03/25/25 03:45 Hydromorphone 0.5 Mg/0.5 Ml Inj IVP 0.5 mg Q1H PRN Administration Pain Sodium Chloride 500 mls @ 500 mls/hr 03/24/25 21:06 03/25/25 00:03 0.9 % Sodium Chloride 500 Ml IV 03/24/25 22:05 Infused .Q1H ONE Infusion Lactated Ringer's 1,000 mls @ 75 mls/hr 03/24/25 23:45 03/25/25 12:16 Lactated Ringers 1000 Ml IV Infused .[id number] ANALI Infusion Metoprolol Succinate 25 mg 03/25/25 09:00 03/25/25 10:26 Metoprolol Succinate (Xl) 25 Mg Tab PO 25 mg DAILY ANALI Administration Morphine Sulfate 2 mg 03/24/25 21:06 03/24/25 21:30 Morphine 4 Mg/Ml Inj IVP 03/24/25 21:07 2 mg ONCE ONE Administration Ondansetron HCl 4 mg 03/24/25 21:06 03/24/25 21:28 Ondansetron 2 Mg/Ml Inj IVP 03/24/25 21:07 4 mg ONCE ONE Administration Ondansetron HCl 4 mg 03/24/25 23:45 03/25/25 04:25 Ondansetron 2 Mg/Ml Inj IVP 4 mg Q4H PRN Administration Nausea Polyethylene Glycol 17 gm 03/25/25 11:20 03/25/25 11:41 Polyethylene Glycol 3350 17 Gm Pack PO 03/25/25 11:21 17 gm ONCE ONE Administration Sodium Chloride 5 ml 03/24/25 23:45 03/25/25 03:45 Sodium Chloride 0.9 % (Flush) 10 Ml Syringe IVF 5 ml .FLUSH PRN Administration Sodium Chloride 5 ml 03/25/25 09:00 03/25/25 10:27 Sodium Chloride 0.9 % (Flush) 10 Ml Syringe IVF 5 ml BID ANALI Administration Torsemide 10 mg 03/25/25 00:37 03/25/25 10:26 Torsemide 5 Mg Tablet PO 10 mg DAILY ANALI Administration Medical Decision Making MDM Narrative Medical decision making narrative: 84-year-old female with about 9 hours of abdominal pain, history of hysterectomy in small-bowel obstruction. Rule out diverticulitis rule out small-bowel obstruction, rule out intra-abdominal pathology. I think at this point the patient would warrant a CT scan given her history with IV contrast of her abdomen pelvis. IV fluid, IV Zofran and laboratory studies. Disposition pending findings above. Addendum 10:24 p.m. the patient's labs look reassuring her CT scan of her abdomen shows multiple dilated loops of small bowel in lower abdomen pelvis concerning for small bowel obstruction moderate colonic stool burden. The patient should be admitted IV fluid possible surgical consult if needed in the morning. She did just reported to me that her prior small-bowel obstruction did needs operative intervention. perhaps surgical consult morning be appropriate as mention. Lab Data Labs: Lab Results 03/24/25 Range/Units 21:20 WBC 8.61 (4.50-11.00) K/uL RBC 4.74 (4.00-5.20) m/uL Hgb 11.8 L (12.0-16.0) gm/dL Hct 36.9 (33.0-51.0) % MCV 78 L (80-100) fL MCH 25 L (26-34) pg MCHC 32 (32-36) gm/dL RDW Coeff of Mehran 14.7 (11.5-15.5) % Plt Count 206 (140-440) K/uL Neut % (Auto) 80.7 H (42.0-72.0) % Lymph % (Auto) 14.8 L (20-44) % Dewitt % (Auto) 3.8 (0.0-11.0) % Eos % (Auto) 0.3 (0.0-7.0) % Baso % (Auto) 0.2 (0.0-3.0) % Neut # (Auto) 6.90 (1.7-7.0) K/uL Lymph # (Auto) 1.30 (0.90-2.90) K/uL Dewitt # (Auto) 0.30 (0.00-0.90) K/UL Eos # (Auto) 0.03 (0.00-0.50) K/uL Baso # (Auto) 0.02 (0.00-0.30) K/uL Abs Immat Gran (auto) 0.02 (0.00-0.30) K/uL Imm/Tot Granulo (auto) 0.2 % Sodium 133 L (135-149) mmol/L Potassium 4.4 (3.6-5.1) mmol/L Chloride 101 (96-114) mmol/L Carbon Dioxide 25 (20-32) mmol/L Anion Gap 7 (7-15) mEq/L BUN 20 (7-30) mg/dL Creatinine 0.7 (0.5-1.5) mg/dL Estimated Creat Clear 34.80 Estimated GFR 86 ml/min Glucose 128 H (60-115) mg/dL Calcium 9.3 (8.4-10.6) mg/dL Total Bilirubin 0.7 (0.1-1.5) mg/dL Direct Bilirubin 0.1 (0.0-0.5) mg/dL AST 31 (12-35) U/L ALT 18 (4-35) U/L Alkaline Phosphatase 72 (40-150) U/L C-Reactive Protein < 0.5 L (0.5-1.0) mg/dL Total Protein 7.0 (6.0-8.3) g/dL Albumin 4.5 (3.3-5.0) g/dL Amylase 93 H (18-89) U/L Lipase 76 (23-300) U/L Discharge Plan Discharge Clinical Impression: Abdominal pain Condition: Improved Activity Level: No Restrictions Discharge Diet: Regular
[2025-03-24 21:26] LABS: Basophils Absolute Auto 0.02 K/uL (0.00-0.30); Basophils Percent Auto 0.2 % (0.0-3.0); Eosinophils Absolute Auto 0.03 K/uL (0.00-0.50); Eosinophils Percent Auto 0.3 % (0.0-7.0); Hematocrit 36.9 % (33.0-51.0); Hemoglobin* 11.8 gm/dL (12.0-16.0); Immature Granulocytes Abs Auto 0.02 K/uL (0.00-0.30); Immature Granulocytes Pct Auto 0.2 %; Lymphocytes Percent Auto 14.8 % (20-44); Mean Corpuscular HGB Conc 32 gm/dL (32-36); Mean Corpuscular Hemoglobin 25 pg (26-34); Mean Corpuscular Volume 78 fL (80-100); Monocytes Percent Auto 3.8 % (0.0-11.0); Neutrophils Percent Auto 80.7 % (42.0-72.0); Platelet Count* 206 K/uL (140-440); RDW Coefficient of Variation % 14.7 % (11.5-15.5); Red Blood Count 4.74 m/uL (4.00-5.20); White Blood Count* 8.61 K/uL (4.50-11.00)
[2025-03-24] MEDS: 0.9 % SODIUM CHLORIDE 500 ML 500 ML IV (21:26)
[2025-03-24] MEDS: ONDANSETRON 2 MG/ML inj 4 MG IVP (21:28)
[2025-03-24 21:29] LABS: Slide Review Reflex No
[2025-03-24] MEDS: MORPHINE 4 MG/ML INJ 2 MG IVP (21:30)
[2025-03-24 21:40] LABS: Albumin* 4.5 g/dL (3.3-5.0); Chloride* 101 mmol/L (96-114)
[2025-03-24 21:41] LABS: Potassium* 4.4 mmol/L (3.6-5.1); Sodium* 133 mmol/L (135-149)
[2025-03-24 21:43] LABS: Amylase* 93 U/L (18-89); Blood Urea Nitrogen* 20 mg/dL (7-30); Creatinine* 0.7 mg/dL (0.5-1.5); Estimated Glomerular Filt Rate 86 ml/min
[2025-03-24 21:44] LABS: Alanine Aminotransferase* 18 U/L (4-35); Alkaline Phosphatase* 72 U/L (40-150); Anion Gap 7 mEq/L (7-15); Aspartate Amino Transferase* 31 U/L (12-35); Bilirubin Direct* 0.1 mg/dL (0.0-0.5); Bilirubin Total* 0.7 mg/dL (0.1-1.5); Calcium* 9.3 mg/dL (8.4-10.6); Carbon Dioxide* 25 mmol/L (20-32); Glucose* 128 mg/dL (60-115); Lipase* 76 U/L (23-300)
[2025-03-24 21:47] LABS: C Reactive Protein* < 0.5 mg/dL (0.5-1.0)
--- NOTE | 2025-03-24 23:13 | P.IMHP_ITS ---
Assessment and Plan Assessment and plan (1) SBO (small bowel obstruction): Problem comment: - 1995 DAYA with BSO - 1999 SBO; laparotomy with lysis of adhesions - 03/25/25 Sudden onset of similar symptoms. CT shows dilated loops of small bowel concerning for SBO. Symptoms are improving with ondansetron and morphine given in ER; minimal nausea and no abdominal pain at present. Will hold off on NG tube. If symptoms worsen or she is not improving by morning, could consider NG tube and/or surgical consult. Since she will be NPO, I have started LR. She appears clinically hypovolemic and creatinine is slightly higher than her baseline of 0.5, so I have increased the rate slightly above what her maintenance needs would be according to weight. This is still a cautious rate, however, as I am being careful in light of her history of severe tricuspid regurgitation. Status: Acute (2) Severe tricuspid regurgitation: Problem comment: Moderate to severe TR noted by exercise stress echo here 11/10 (echo negative for ischemia), seen by [facility] cardiology 01/08 with plans for echo/cardiology follow-up yearly ECHO 12/25/24: Tricuspid valve is non coapting and severe tricuspid regurgitation. Status: Chronic (3) Essential hypertension: Problem comment: Dr. Escobedo started metoprolol 12/11 - 03/25/25 continue metoprolol at home dosing. Hold torsemide and other home medications for now. Status: Chronic Hospitalist- H&P: HPI History of Present Illness Time Seen by Provider: 23:14 Date Seen: 03/24/25 Chief complaint: Stomach, abdominal pain Narrative: Savi Hughes is a 84 year old female with a h/o severe tricuspid regurgitation, essential hypertension, migraine headache, history of bladder cancer, cystocele, incomplete bladder emptying, remote history of adenomatous colon polyp, and osteopenia who presented through the emergency department today with sudden onset of diffuse abdominal pain and nausea that felt similar to when she had a small-bowel obstruction 25 years ago. She notes that she was feeling just fine in that her usual state of health until just after eating an egg salad sandwich at noon when she had sudden onset of diffuse abdominal pain. At 1st the pain came and went, but then it became more constant and increasingly more severe. It was associated with a little nausea and some dry heaving. She also felt cold but denies fevers. She denies chest pain or shortness of breath. She had a normal bowel movement this morning, but has not been had much flatus since her symptoms began. Savi says this feels very much like when she had a bowel obstruction 25 years ago, which is why she came into the emergency department. She has a history of total abdominal hysterectomy with BSO in 1995 and then had the bowel obstruction 4 years after that. She had surgery with lysis of adhesions for the previous bowel obstruction. Review of Systems Status of ROS: Reports: 10 or more systems reviewed and unremarkable except as noted in History and below Medical Decision Making Medical Decision Making Code Status: Full code Has patient completed a Health Care Directive: Yes During This Stay, Who Would You Like To Make Decisions For You In The Event You Are Unable To Make Them For Yourself?: SonNorberto, [facility] Medical History (Updated 03/25/25 @ 00:15 by Tamara Fierro MD) Bilateral hearing loss ?H91.93 - Unspecified hearing loss, bilateral (ICD-10) Severe tricuspid regurgitation ?I07.1 - Rheumatic tricuspid insufficiency (ICD-10) Incomplete bladder emptying ?R33.9 - Retention of urine, unspecified (ICD-10) Cystocele Health care directive on file (11/19/21) ?Z78.9 - Other specified health status (ICD-10) Osteopenia ?M85.80 - Other specified disorders of bone density and structure, unspecified site (ICD-10) Migraine aura without headache ?G43.109 - Migraine with aura, not intractable, without status migrainosus (ICD-10) Essential hypertension ?I10 - Essential (primary) hypertension (ICD-10) Adenomatous polyp of colon (2009) ?D12.6 - Benign neoplasm of colon, unspecified (ICD-10) Chronic low back pain ?M54.50 - Low back pain, unspecified (ICD-10) ?G89.29 - Other chronic pain (ICD-10) History of bladder cancer ?Z85.51 - Personal history of malignant neoplasm of bladder (ICD-10) Surgical History (Updated 03/24/25 @ 23:57 by Tamara Fierro MD) 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/09/24) ?Z96.652 - Presence of left artificial knee joint (ICD-10) 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) ?Z96.651 - Presence of right artificial knee joint (ICD-10) H/O foot surgery (10/23/08) ?Z98.890 - Other specified postprocedural states (ICD-10) H/O cystoscopy (12/10/14) ?Z98.890 - Other specified postprocedural states (ICD-10) History of cataract surgery ?Z98.49 - Cataract extraction status, unspecified eye (ICD-10) History of total hysterectomy with removal of both tubes and ovaries (1995) ?Z90.710 - Acquired absence of both cervix and uterus (ICD-10) ?Z90.722 - Acquired absence of ovaries, bilateral (ICD-10) ?Z90.79 - Acquired absence of other genital organ(s) (ICD-10) History of laparotomy (1999) ?Z98.890 - Other specified postprocedural states (ICD-10) History of appendectomy (1997) ?Z90.49 - Acquired absence of other specified parts of digestive tract (ICD- 10) Family History Brother Colon cancer Social History (Updated 03/24/25 @ 23:58 by Tamara Fierro MD) Narrative: Lives independently in her own home. Nonsmoker. Alcohol use once a year on [place]. What is your current living situation?: I presently have a place to live Problems where you live: no known problems In the past 12 months, utilities in danger of being shut off: no In past 12 months, lack of transportation kept you from medical appts, meetings, work, or getting things needed for daily living: no In the past 12 mos, have been you worried that your food would run out before you had money to buy more?: never true In the past 12 mos, the food you bought just didn't last and you didn't have money to buy more?: never true Highest level of school completed/degree received: high school graduate Smoking Status: Never smoker Do you use any of these nicotine containing products: None Second hand tobacco smoke exposure: No How often do you have a drink containing alcohol: monthly or less Alcohol type: wine How many standard drinks containing alcohol do you have on a typical day: 1 or 2 How often do you have six or more drinks on one occasion: Never AUDIT-C Alcohol total score: 1 Non-prescribed substance use: marijuana (any form) Non-prescribed substance use details: CBD oil Caffeine: Yes How often does anyone, including family, friends and others, physically hurt you : never How often does anyone, including family, friends and others, insult or talk down to you: never How often does anyone, including family, friends and others, threaten you with harm: never How often does anyone, including family, friends and others, scream or curse at you: never service: No Meds Home Medications and Allergies Home Medications ?Medication ?Instructions ?Recorded ?Confirmed ?Type calcium carbonate 500 mg PO DAILY 09/29/2205/11 History fish oil-dha-epa See Rx Instructions PO DAILY 09/29/22 03/24/25 History glucosamine sulfate 500 mg capsule 500 mg PO DAILY 03/24/25 History vitamin B complex 1 tab PO DAILY 09/29/2205/11 History metoprolol succinate 25 mg 25 mg PO DAILY #90 tabs 03/24/25 Rx tablet,extended release 24 hr (Toprol XL) estradiol 0.01% (0.1 mg/gram) 0.5 appful vaginal 2XW # 42.5 grams 01/01/25 03/24/25 Rx vaginal cream torsemide 10 mg tablet 10 mg PO QDAY 01/04/2503/24 History Allergies Allergy/AdvReac Type Severity Reaction Status Date / Time No Known Allergies Allergy Verified 03/25/25 00:07 Exam Narrative: Exam Narrative: General: No acute distress. Awake alert oriented x3. Thin. HEENT: Normocephalic atraumatic, pupils equally round and reactive to light and accommodation. Oropharynx clear. Mucous membranes are dry. No cervical lymphadenopathy, thyromegaly or carotid bruits. No JVD. Cardiovascular: Regular rate and rhythm. Grade 3/6 systolic murmur loudest at the left lower sternal border Chest: No increased work of breathing. Clear to auscultation bilaterally. No crackles or wheezes. Abdomen: Bowel sounds absent. Soft, nondistended, flat, nontender. No hepatosplenomegaly or masses. Extremities: Trace bilateral pretibial edema, no cyanosis or clubbing. Skin: No jaundice, no pallor, no rashes on visible skin. Const: Vital Signs, click to edit/add: Vital Signs - 24 hr 03/24/25 21:07 03/24/25 21:38 03/24/25 21:45 Temperature 98.0 F Pulse Rate 72 70 Pulse Rate [Pulse Oximeter] 82 Respiratory Rate 20 Blood Pressure Blood Pressure [Ri ght Upper Arm] 171/109 H Pulse Oximetry 98 97 97 [facility] 03/24/25 21:46 03/24/25 21:47 03/24/25 22:03 Temperature Pulse Rate 72 72 80 Pulse Rate [Pulse Oximeter] Respiratory Rate Blood Pressure 143/90 H Blood Pressure [Ri ght Upper Arm] Pulse Oximetry 97 96 98 [facility] 03/24/25 22:04 03/24/25 22:15 03/24/25 22:16 Temperature Pulse Rate 77 77 74 Pulse Rate [Pulse Oximeter] Respiratory Rate Blood Pressure 139/93 H 137/86 Blood Pressure [Ri ght Upper Arm] Pulse Oximetry 97 97 97 [facility] 03/24/25 22:30 03/24/25 22:32 03/24/25 22:45 Temperature Pulse Rate 77 76 75 Pulse Rate [Pulse Oximeter] Respiratory Rate Blood Pressure 143/87 H Blood Pressure [Ri ght Upper Arm] Pulse Oximetry 97 97 98 [facility] 03/24/25 22:46 03/24/25 22:47 Temperature Pulse Rate 76 76 Pulse Rate [Pulse Oximeter] Respiratory Rate Blood Pressure 141/91 H Blood Pressure [Ri ght Upper Arm] Pulse Oximetry 97 97 [facility] - H&P: Result Labs Labs: Short CBC 03/24/25 Range/Units 21:20 WBC 8.61 (4.50-11.00) K/uL Hgb 11.8 L (12.0-16.0) gm/dL Hct 36.9 (33.0-51.0) % Plt Count 206 (140-440) K/uL BMP 03/24/25 21:20 Sodium 133 L Potassium 4.4 Chloride 101 Carbon Dioxide 25 BUN 20 Creatinine 0.7 Glucose 128 H Calcium 9.3 Liver Function 03/24/25 Range/Units 21:20 Total Bilirubin 0.7 (0.1-1.5) mg/dL Direct Bilirubin 0.1 (0.0-0.5) mg/dL AST 31 (12-35) U/L ALT 18 (4-35) U/L Alkaline Phosphatase 72 (40-150) U/L Albumin 4.5 (3.3-5.0) g/dL Ordering Physician: Parish Soler M.D. Date of Service: 03/24/25 Procedure(s): CT abdomen pelvis w con Accession Number(s): [id number] cc: Elizabeth Hameed M.D.; Parish Soler M.D.~ For Patients: As a result of the Cures Act, medical imaging exams and procedure reports are released immediately into your electronic medical record. You may view this report before your referring provider. If you have questions, please contact your health care provider. INDICATION: Abdominal pain. History of bladder cancer. TECHNIQUE: CT abdomen and pelvis acquired with 55 cc Isovue 370 IV contrast. COMPARISON: November 12, 2022.. FINDINGS: Lower chest: Scattered atelectasis. Liver: Few scattered tiny hepatic hypodensities.. Normal in size and attenuation. No suspicious masses. Gallbladder and bile ducts: Unremarkable. No stones or inflammation. No biliary dilatation. Pancreas: Unremarkable. No mass or inflammation. Spleen: Unremarkable. Normal in size. No masses. Adrenal glands: Unremarkable. No nodules. Kidneys: Unremarkable. No suspicious masses, stones, or hydronephrosis. GI tract: Multiple dilated loops of small bowel in the lower abdomen/pelvis. Moderate colonic stool burden. Vasculature: Aortoiliac arterial calcifications. Abdominal aorta is normal in caliber. Mesenteric arteries are patent. Lymph nodes: No lymphadenopathy. Peritoneum/Abdominal Wall: Unremarkable. No sign of mass or infiltration. No free air or significant free fluid. Pelvis: Hysterectomy.. Bones: Posterior L3-L5 hardware fixation. IMPRESSION: Multiple dilated loops of small bowel in the lower abdomen/pelvis concerning for small bowel obstruction. Moderate colonic stool burden. Please note that all CT scans at this facility use dose modulation, iterative reconstruction, and/or weight-based dosing when appropriate to reduce radiation dose to as low as reasonably achievable. Dictated by Santi Cleaning MD @ 03/24/2025 10:21:48 PM (Electronically Signed)
[2025-03-24 23:34] LABS: Appearance Urine Clear (Clear); Bilirubin Urine Negative (Negative); Blood Urine Negative (Negative); Color Urine Yellow (Yellow); Glucose Urine Negative (Negative); Ketones Urine 2+ (Negative); Leukocyte Esterase Urine Negative (Negative); Nitrite Urine Negative (Negative); Protein Urine Negative (Negative); Urobilinogen Urine 0.2 (0.2-1.0)
[2025-03-24 23:41] LABS: Amorphous Sediment Urine Few; RBC Urine 0-2 (0-2); Squamous Epithelial Cell Urine Few (None-Few); WBC Urine 0-2 (0-5)
[2025-03-25] MEDS: LACTATED RINGERS 1000 ML 1,000 ML 75 ML IV (00:03)
[2025-03-25] MEDS: HYDROmorphone 0.5 mg/0.5 ml inj IVP ×2 (00:41→03:45)
[2025-03-25] MEDS: ONDANSETRON 2 MG/ML inj 4 MG IVP ×2 (00:41→04:25)
[2025-03-25] MEDS: SODIUM CHLORIDE 0.9 % (FLUSH) 10 ML SYRINGE 5 ML IVF ×3 (00:42→10:27)
[2025-03-25 03:45] VITALS: BP 129/86; PULSE 82; RESP 16; TEMP 37.3; O2SAT 98
[2025-03-25 05:00] VITALS: BMI 19.5
[2025-03-25 06:21] LABS: Basophils Absolute Auto 0.01 K/uL (0.00-0.30); Basophils Percent Auto 0.1 % (0.0-3.0); Eosinophils Absolute Auto 0.02 K/uL (0.00-0.50); Eosinophils Percent Auto 0.3 % (0.0-7.0); Hematocrit 36.2 % (33.0-51.0); Hemoglobin* 11.5 gm/dL (12.0-16.0); Immature Granulocytes Abs Auto 0.12 K/uL (0.00-0.30); Immature Granulocytes Pct Auto 1.5 %; Lymphocytes Percent Auto 10.8 % (20-44); Mean Corpuscular HGB Conc 32 gm/dL (32-36); Mean Corpuscular Hemoglobin 25 pg (26-34); Mean Corpuscular Volume 78 fL (80-100); Monocytes Percent Auto 5.1 % (0.0-11.0); Neutrophils Percent Auto 82.2 % (42.0-72.0); Platelet Count* 204 K/uL (140-440); RDW Coefficient of Variation % 14.9 % (11.5-15.5); Red Blood Count 4.63 m/uL (4.00-5.20); White Blood Count* 7.79 K/uL (4.50-11.00)
[2025-03-25 06:23] LABS: Slide Review Reflex No
--- NOTE | 2025-03-25 06:23 | PC.NURSE ---
Patient admitted to the unit at 2300 w/SBO. BS active. C/o nausea x2, Zofran administered for relief, no vomiting. Dilaudid x2 for abdominal pain 2-05/27. Independent in room. NPO.
[2025-03-25 06:39] LABS: Chloride* 103 mmol/L (96-114); Potassium* 3.8 mmol/L (3.6-5.1); Sodium* 134 mmol/L (135-149)
[2025-03-25 06:42] LABS: Anion Gap 7 mEq/L (7-15); Blood Urea Nitrogen* 17 mg/dL (7-30); Calcium* 9.1 mg/dL (8.4-10.6); Carbon Dioxide* 24 mmol/L (20-32); Creatinine* 0.6 mg/dL (0.5-1.5); Est. Creatinine Clearance* 34.74; Estimated Glomerular Filt Rate 89 ml/min; Glucose* 113 mg/dL (60-115)
[2025-03-25 07:00] VITALS: PULSE 79; RESP 16; O2SAT 95
[2025-03-25 07:45] VITALS: BP 123/81; PULSE 79; RESP 16; TEMP 37.4; O2SAT 95
[2025-03-25] MEDS: TORSEMIDE 5 MG TABLET 10 MG PO (10:26)
[2025-03-25] MEDS: METOPROLOL SUCCINATE (XL) 25 MG TAB PO (10:26)
[2025-03-25 11:41] VITALS: BP 115/78; PULSE 78; RESP 16; TEMP 36.7; O2SAT 98
[2025-03-25] MEDS: polyethylene glycoL 3350 17 GM PACK PO (11:41)
--- NOTE | 2025-03-25 12:31 | P.DS_ITS ---
DS: Providers Provider Date Seen: 03/25/25 Date of admission: 03/24/25 22:37 Primary care physician: Elizabeth Hameed MD Admitting Clinician: Tamara Fierro MD Attending Physician on discharge: Gilles Villeda MD Date of Discharge: 03/25/25 DS: Diagnosis Discharge Diagnosis (1) SBO (small bowel obstruction): Status: Acute Problem details: - 1995 DAYA with BSO - 1999 SBO; laparotomy with lysis of adhesions - 03/25/25 Sudden onset of similar symptoms. CT shows dilated loops of small bowel concerning for SBO. Symptoms are improving with ondansetron and morphine given in ER; minimal nausea and no abdominal pain at present. Abdominal pain, nausea resolved quickly. She has been eating, passing gas and had a large bowel movement today. (2) Abdominal pain: Status: Acute Problem details: Resolved (3) Essential hypertension: Status: Chronic Problem details: Resume home blood pressure medicine (4) Severe tricuspid regurgitation: Status: Chronic Problem details: Moderate to severe TR noted by exercise stress echo here 11/10 (echo negative for ischemia), seen by [facility] cardiology 01/08 with plans for echo/cardiology follow-up yearly ECHO 12/25/24: Tricuspid valve is non coapting and severe tricuspid regurgitation. DS: Summary Hospital Course Hospital Course: Savi Hughes is a 84 year old female with a h/o severe tricuspid regurgitation, essential hypertension, migraine headache, history of bladder cancer, cystocele, incomplete bladder emptying, remote history of adenomatous colon polyp, and osteopenia who presented through the emergency department today with sudden onset of diffuse abdominal pain and nausea that felt similar to when she had a small-bowel obstruction 25 years ago. She notes that she was feeling just fine in that her usual state of health until just after eating an egg salad sandwich at noon when she had sudden onset of diffuse abdominal pain. At 1st the pain came and went, but then it became more constant and increasingly more severe. It was associated with a little nausea and some dry heaving. She also felt cold but denies fevers. She denies chest pain or shortness of breath. She had a normal bowel movement this morning, but has not been had much flatus since her symptoms began. Savi says this feels very much like when she had a bowel obstruction 25 years ago, which is why she came into the emergency department. She has a history of total abdominal hysterectomy with BSO in 1995 and then had the bowel obstruction 4 years after that. She had surgery with lysis of adhesions for the previous bowel obstruction. Overnight her abdominal pain has resolved. She has no nausea. She is passing gas. This morning she had a clear liquid diet and tolerated that well. And she ate regular food. She has had a bowel movement. Time Spent with Patient Time attestation: Total time spent providing and/or coordinating discharge services: Time spent: Greater than 30 minutes Exam Narrative: Exam Narrative: She is alert and appears in no distress. She is walking in the hallway. Breathing is unlabored. Respirations are clear to auscultation. Cardiovascular: S1, S2, regular rate and rhythm. Abdomen with bowel sounds are active abdomen is soft without tenderness or mass. Const: Vital Signs, click to edit/add: Vital Signs - 24 hr 03/24/25 21:07 03/24/25 21:38 03/24/25 21:45 Temperature 98.0 F Pulse Rate 72 70 Pulse Rate [Pulse Oximeter] 82 Respiratory Rate 20 Blood Pressure Blood Pressure [Ri ght Arm] Blood Pressure [Ri ght Upper Arm] 171/109 H Pulse Oximetry 98 97 97 Oxygen Delivery Me thod Room Air 03/24/25 21:46 03/24/25 21:47 03/24/25 22:03 Temperature Pulse Rate 72 72 80 Pulse Rate [Pulse Oximeter] Respiratory Rate Blood Pressure 143/90 H Blood Pressure [Ri ght Arm] Blood Pressure [Ri ght Upper Arm] Pulse Oximetry 97 96 98 Oxygen Delivery Me thod 03/24/25 22:04 03/24/25 22:15 03/24/25 22:16 Temperature Pulse Rate 77 77 74 Pulse Rate [Pulse Oximeter] Respiratory Rate Blood Pressure 139/93 H 137/86 Blood Pressure [Ri ght Arm] Blood Pressure [Ri ght Upper Arm] Pulse Oximetry 97 97 97 Oxygen Delivery Me thod 03/24/25 22:30 03/24/25 22:32 03/24/25 22:45 Temperature Pulse Rate 77 76 75 Pulse Rate [Pulse Oximeter] Respiratory Rate Blood Pressure 143/87 H Blood Pressure [Ri ght Arm] Blood Pressure [Ri ght Upper Arm] Pulse Oximetry 97 97 98 Oxygen Delivery Me thod 03/24/25 22:46 03/24/25 22:47 03/24/25 23:17 Temperature 99.0 F Pulse Rate 76 76 Pulse Rate [Pulse Oximeter] 75 Respiratory Rate 18 Blood Pressure 141/91 H Blood Pressure [Ri ght Arm] 153/98 H Blood Pressure [Ri ght Upper Arm] Pulse Oximetry 97 97 97 Oxygen Delivery Me thod Room Air 03/25/25 03:45 03/25/25 07:00 03/25/25 07:00 Temperature 99.2 F Pulse Rate Pulse Rate [Pulse Oximeter] 82 79 Respiratory Rate 16 16 16 Blood Pressure Blood Pressure [Ri ght Arm] 129/86 Blood Pressure [Ri ght Upper Arm] Pulse Oximetry 98 95 Oxygen Delivery Me thod Room Air Room Air 03/25/25 07:45 03/25/25 11:41 Temperature 99.3 F 98.1 F Pulse Rate Pulse Rate [Pulse Oximeter] 79 78 Respiratory Rate 16 16 Blood Pressure Blood Pressure [Ri ght Arm] 123/81 115/78 Blood Pressure [Ri ght Upper Arm] Pulse Oximetry 95 98 Oxygen Delivery Me thod Room Air Room Air Documenting provider has reviewed patient's vital signs: yes DS: Data Data Completed and Pending Labs on day of discharge: Labs from last 24 hours 03/25/25 03/24/25 03/24/25 05:31 23:17 21:20 WBC 7.79 8.61 RBC 4.63 4.74 Hgb 11.5 L 11.8 L Hct 36.2 36.9 MCV 78 L 78 L MCH 25 L 25 L MCHC 32 32 RDW Coeff of Mehran 14.9 14.7 Plt Count 204 206 Neut % (Auto) 82.2 H 80.7 H Lymph % (Auto) 10.8 L 14.8 L [place] % (Auto) 5.1 3.8 Eos % (Auto) 0.3 0.3 Baso % (Auto) 0.1 0.2 Neut # (Auto) 6.40 6.90 Lymph # (Auto) 0.80 L 1.30 [place] # (Auto) 0.40 0.30 Eos # (Auto) 0.02 0.03 Baso # (Auto) 0.01 0.02 Abs Immat Gran (auto) 0.12 0.02 Imm/Tot Granulo (auto) 1.5 0.2 Sodium 134 L 133 L Potassium 3.8 4.4 Chloride 103 101 Carbon Dioxide 24 25 Anion Gap 7 7 BUN 17 20 Creatinine 0.6 0.7 Estimated Creat Clear 34.74 34.80 Estimated GFR 89 86 Glucose 113 128 H Calcium 9.1 9.3 Total Bilirubin 0.7 Direct Bilirubin 0.1 AST 31 ALT 18 Alkaline Phosphatase 72 C-Reactive Protein < 0.5 L Total Protein 7.0 Albumin 4.5 Amylase 93 H Lipase 76 Urine Color Yellow Urine Appearance Clear Urine pH 6.0 Ur Specific [place] 1.010 Urine Protein Negative Urine Glucose (UA) Negative Urine Ketones 2+ A Urine Blood Negative Urine Nitrite Negative Urine Bilirubin Negative Urine Urobilinogen 0.2 Ur Leukocyte Esterase Negative Urine RBC 0-2 Urine WBC 0-2 Ur Squamous Epith Cells Few Amorphous Sediment Few A Urine Bacteria None Imaging CT scan - abdomen: Radiologist's impression: INDICATION: Abdominal pain. History of bladder cancer. TECHNIQUE: CT abdomen and pelvis acquired with 55 cc Isovue 370 IV contrast. COMPARISON: November 12, 2022.. FINDINGS: Lower chest: Scattered atelectasis. Liver: Few scattered tiny hepatic hypodensities.. Normal in size and attenuation. No suspicious masses. Gallbladder and bile ducts: Unremarkable. No stones or inflammation. No biliary dilatation. Pancreas: Unremarkable. No mass or inflammation. Spleen: Unremarkable. Normal in size. No masses. Adrenal glands: Unremarkable. No nodules. Kidneys: Unremarkable. No suspicious masses, stones, or hydronephrosis. GI tract: Multiple dilated loops of small bowel in the lower abdomen/pelvis. Moderate colonic stool burden. Vasculature: Aortoiliac arterial calcifications. Abdominal aorta is normal in caliber. Mesenteric arteries are patent. Lymph nodes: No lymphadenopathy. Peritoneum/Abdominal Wall: Unremarkable. No sign of mass or infiltration. No free air or significant free fluid. Pelvis: Hysterectomy.. Bones: Posterior L3-L5 hardware fixation. IMPRESSION: Multiple dilated loops of small bowel in the lower abdomen/pelvis concerning for small bowel obstruction. Moderate colonic stool burden. Discharge Plan Discharge Disposition: Home, Self-Care Date of Admission: 03/24/25 22:37 Attending Provider on Discharge: Benji Villeda Primary Care Provider: Elizabeth Hameed Condition: Improved Anticipated Discharge Date/Time: 03/25/25 12:35 Discharge Medications: Continued torsemide 10 mg tablet 10 mg PO DAILY glucosamine sulfate 500 mg capsule 500 mg PO DAILY calcium carbonate 500 mg calcium (1,250 mg) tablet 500 mg PO DAILY vitamin B complex Tablet 1 tab PO DAILY fish oil-dha-epa See Rx Instructions PO DAILY Rx Instructions: orally daily; estradiol 0.01 % (0.1 mg/gram) cream 0.5 appful vaginal 2XW Qty: 42.5 3RF metoprolol succinate [Toprol XL] 25 mg tablet extended release 24 hr 25 mg PO DAILY Qty: 90 3RF Discharge Orders: Discharge Order (Routine); Ordered 03/25/25 Ordered By: Benji Villeda Activity Level: No Restrictions Discharge Diet: Regular Follow Up Appointments: Elizabeth Hameed MD [Primary Care Provider, Internal Medicine] Referral Note: As needed Forms: [employer] Info Instructions
--- NOTE | 2025-03-25 13:08 | PC.NURSE ---
VSS. Denies pain. Tolerating regular diet. Walking frequently in halls independently. Pt is passing gas and had a large bowel movement. Pt discharged home at 1300 via daughter. Pt belongings and discharge information signed. Education reviewed, no questions or concerns at this time.
== END 2025-03-25 13:00 | disposition home or self-care (01) ==
LOC: ED 21:14 → MEDSURG 22:37
PROVIDERS: Admitting Provider Family Medicine; Emergency Provider Family Medicine; PCP Internal Medicine; Visit Provider Family Medicine
DX: K56.609 Unspecified intestinal obstruction, unspecified as to partial versus complete obstruction (principal); R10.9 Unspecified abdominal pain; R11.0 Nausea; I10 Essential (primary) hypertension; F12.90 Cannabis use, unspecified, uncomplicated; I07.1 Rheumatic tricuspid insufficiency; M85.80 Other specified disorders of bone density and structure, unspecified site; Z90.49 Acquired absence of other specified parts of digestive tract; Z96.652 Presence of left artificial knee joint; Z86.0100 Personal history of colon polyps, unspecified; Z85.51 Personal history of malignant neoplasm of bladder; Z80.0 Family history of malignant neoplasm of digestive organs; Z98.890 Other specified postprocedural states
CPT/HCPCS: 36415; 74177; 80048; 80076; 81001; 82150; 83690; 85025; 86140; 87086; 94761; 96361; 96374; 96375; 96376; 99285; A9270; G0378; J1171; J2270; J2405; J7030; J7120; Q9967

== ENCOUNTER 2025-06-29 14:40 | Outpatient (CLI) | payer MEDICARE, BC, SELFPAY ==
--- NOTE | 2025-06-29 15:00 | CRLHL7_ITS ---
For Patients: As a result of the 21st Century Cures Act, medical imaging exams and procedure reports are released immediately into your electronic medical record. You may view this report before your referring provider. If you have questions, please contact your health care provider. INDICATION: Bladder cancer.. TECHNIQUE: CT abdomen and pelvis urogram without and with 100 cc Omnipaque 350 IV contrast. Contrast images were obtained in the combined nephrographic and delayed phases. COMPARISON: 03/24/2025. FINDINGS: The kidneys are normal in size. Are obscured by streak artifact from lumbosacral fusion. Noncontrast images demonstrate no stone. Postcontrast images are obscured by streak artifact. There is grossly symmetric. No significant. No suspicious renal. There prominent renal pelvis bilaterally no hydronephrosis is seen. There is largely non-opacification of the distal right ureter which limits evaluation. On initial images the urinary bladder is partially distended. On delayed images there is minimal distention of the urinary bladder with contrast material. This limits evaluation. No mass is seen within the contrast column. The visualized lung bases are clear. The liver is unremarkable. 8 millimeter hypoattenuating lesion within the periphery of the right hemiliver is too small to characterize but likely represents a cyst (series 5, image 19). The gallbladder is partially distended. No biliary ductal dilatation. Spleen is unremarkable. The pancreas is unremarkable. No peripancreatic stranding is seen. The adrenal glands are unremarkable. The colon is nondilated. Stomach is partially distended. The small bowel is nondilated without evidence of a small-bowel obstruction. No free air. No significant ascites. No organized drainable fluid collection. Grossly stable prominent retroperitoneal and inguinal lymph nodes. For reference is a 9 millimeter left inguinal lymph node in short axis (115). Uterus is absent. Aorta is normal caliber. Bone windows demonstrate osteopenia. Dextroscoliosis. Lumbar fusion. IMPRESSION: 1. The urinary bladder is minimally distended with contrast material. This limits evaluation. Cystoscopy may be performed for further evaluation. 2. Non opacification of the distal right ureter limits evaluation. This is likely due to peristalsis. 3. Grossly stable prominent retroperitoneal and inguinal lymph nodes compared to 03/24/20[address] Please note that all CT scans at this facility use dose modulation, iterative reconstruction, and/or weight-based dosing when appropriate to reduce radiation dose to as low as reasonably achievable. Dictated by Artem Adams MD @ 07/02/2025 11:33:46 AM (Electronically Signed)
[2025-06-29 15:09] LABS: Creatinine* 0.8 mg/dL (0.5-1.5); Estimated Glomerular Filt Rate 73 ml/min
== END 2025-06-29 14:41 | disposition home or self-care (01) ==
LOC: CT 14:41
PROVIDERS: PCP Internal Medicine; Visit Provider Urology
DX: C67.9 Malignant neoplasm of bladder, unspecified (principal); R59.0 Localized enlarged lymph nodes
CPT/HCPCS: 36415; 74178; 82565; Q9967

== ENCOUNTER 2025-07-30 13:43 | Outpatient (CLI) | payer MEDICARE, BC, SELFPAY | END 2025-07-30 13:44 | disposition home or self-care (01) | LOC: RAD 13:44 | PROVIDERS: PCP Internal Medicine; Visit Provider Internal Medicine | DX: I07.1 Rheumatic tricuspid insufficiency (principal); I35.0 Nonrheumatic aortic (valve) stenosis | CPT/HCPCS: 93308; 93321; 93325 ==